=== PATIENT | female | born 1985 | race Caucasian/White ===

== ENCOUNTER 2017-10-29 21:44 | Emergency (ER) | payer OTHER, MEDICAID, SELFPAY ==
[2017-10-29 21:52] VITALS: BP 128/91; PULSE 116; RESP 20; TEMP 37; O2SAT 100; BMI 31.4
--- NOTE | 2017-10-29 21:57 | PC.NURSE ---
PT REFUSING TO LIST MEDICATION ALLERGIES AT THIS TIME.
[2017-10-29 23:11] VITALS: BP 100/73; PULSE 103; RESP 17; O2SAT 99
--- NOTE | 2017-10-29 23:30 | ED.ABDPAIN ---
HPI - Abdominal Pain General Chief Complaint: Abdominal Pain Stated Complaint: states cant keep anything down Time Seen by Provider: 10/29/17 22:55 Source: patient Mode of arrival: ambulatory Limitations: no limitations History of Present Illness HPI narrative: Patient presents to the emergency department today with a chief complaint of nausea, vomiting and diarrhea since noon. She now has some generalized abdominal cramping and denies provocation or palliation of the symptoms. She has become a bit lightheaded and weak feeling. She states her last period was 2 weeks ago. She denies recent antibiotics, travel or exposure to bad food. She denies exposure to ill persons MD complaint: abdominal pain Onset (ago): hour(s) Pain Consistency: constant Location: L flank Severity: moderate Quality: cramping and aching Radiation: none Migration to: no migration Relieving factors: nothing Exacerbating factors: nothing Associated symptoms: nausea, vomiting and diarrhea Related Data Date of Last Menstrual Period: 10/18/17 Home Medications Medication Instructions Recorded Confirmed medroxyprogesterone 150 mg IM [id number] #0 02/17/17 [MagDelay] #0 08/23/17 Previous Rx's Medication Instructions Recorded omeprazole 20 mg PO BID #60 cap 11/25/16 epinephrine [EpiPen 2-Mark] 0.3 mg INJ SEE INSTRUCTIONS PRN #2 02/03/17 kit diclofenac sodium [Voltaren] 1 alex TOPICAL QDAY #100 gm 06/05/17 lamotrigine 300 mg PO HS #60 tab 06/20/17 levothyroxine 0.1 mg PO QAM #90 tab 06/20/17 levothyroxine 88 mcg PO QDAY #90 tab 06/20/17 naproxen 500 mg PO BID #60 tab 06/20/17 sertraline [Zoloft] 100 mg PO HS #90 tab 06/20/17 ondansetron [Zofran ODT] 4 mg SUBLINGUAL Q6HP PRN #30 odt 07/25/17 potassium chloride 20 meq PO Q DAY #150 ml 07/25/17 albuterol sulfate [Ventolin HFA] 2 puff INH Q2H PRN #1 ea 07/31/17 baclofen 5 mg PO BID #30 tab 08/17/17 clonazepam 1 mg PO BID AND HS #120 tab 08/17/17 dextroamphetamine-amphetamine 15 mg PO QDAY #30 cer 08/17/17 [Adderall XR] dextroamphetamine-amphetamine 15 mg PO QDAY #30 tab 08/17/17 [Adderall] ranitidine HCl 150 mg PO BID #60 tab 08/18/17 mupirocin 0 alex TOPICAL TID #22 gm 08/26/17 carisoprodol 350 mg PO TIDP PRN #90 tab 09/05/17 acyclovir 400 mg PO BID #60 tab 09/18/17 ondansetron [Zofran ODT] 4 mg PO Q6H #14 tab 10/30/17 Allergies Allergy/AdvReac Type Severity Reaction Status Date / Time acetaminophen [ACETAMINOPHEN] Allergy Intermediate RASH WITH Unverified 09/06/17 12:12 LARGE AMOUNTS doxycycline [DOXYCYCLINE] Allergy Intermediate VOMITING Unverified 09/06/17 12:12 adhesive tape [ADHESIVE TAPE] Allergy Unknown Unverified 09/06/17 12:12 bee venom protein (honey bee) Allergy Unknown Unverified 09/06/17 12:12 [BEE VENOM PROTEIN (HONEY BEE)] Milk Containing Products Allergy Unknown Unverified 09/06/17 12:12 [MILK CONTAINING PRODUCTS] Review of Systems Review of Systems All systems reviewed & are unremarkable except as noted in HPI and below Constitutional Denies chills, Reports fatigue, Denies fever(s), Denies lethargy, Reports malaise and Denies weakness Eyes Denies change in vision, Denies eye discharge, Denies irritation and Denies loss of vision ENT Ears, Nose, Mouth, and Throat: Denies change in voice, Denies neck pain and Denies sore throat Cardiovascular Denies chest pain, Denies irregular heart rhythm, Denies lightheadedness, Denies palpitations, Denies dyspnea, Denies dyspnea on exertion and Denies orthopnea Respiratory Denies cough, Denies dyspnea, Denies dyspnea on exertion and Denies wheezing Gastrointestinal Gastrointestinal: Reports abdominal pain, Denies change in bowel habits, Reports diarrhea, Reports nausea and Reports vomiting Genitourinary Denies hematuria, Denies flank pain, Denies urinary incontinence and Denies urinary urgency Musculoskeletal Denies neck pain Integumentary/Breasts Denies pruritus, Denies erythema, Denies rash and Denies wounds Neurologic Denies confusion, Denies loss of vision and Denies weakness Psychiatric Denies anxiety, Denies confusion, Denies depression, Denies homicidal ideation and Denies suicidal ideation Endocrine Reports fatigue and Denies palpitations Hematologic/Lymphatic Denies easy bruising Allergic/Immunologic Denies wheezing PFSH Surgical History History of thyroidectomy History of tonsillectomy Status post laparoscopy Family History Grandfather Cancer Diabetes mellitus Heart disease Hypertension High cholesterol Grandmother Cancer Diabetes mellitus Hypertension High cholesterol Mental health problem Mother Age: 55 Diabetes mellitus Grandmother Cancer Social History Smoking Status: Former smoker Exam Initial Vital Signs Initial Vital Signs: Vital Signs Temperature 98.6 F 10/29/17 21:52 Pulse Rate 116 H 10/29/17 21:52 Respiratory Rate 20 10/29/17 21:52 Blood Pressure 128/91 H 10/29/17 21:52 Pulse Oximetry 100 10/29/17 21:52 Const General: cooperative and well developed Nutritional Appearance: well nourished Orientation: alert, awake, oriented x3 and not confused HENMT Head: normocephalic and atraumatic Ears: external ears normal and TM's normal bilaterally Nose: external nose normal and No nasal discharge Face and sinus: sinuses nontender, face symmetric, no sinus tenderness and No dry mucous membranes Mouth: oral mucosae normal and moist mucous membranes Teeth and gingiva: dentition normal Throat: tonsils normal and uvula midline Chest Chest: normal inspection of the chest Cardio Rate: regular rate Rhythm: regular rhythm Heart Sounds: no click, no gallops, no murmurs and no rubs Pulses: normal peripheral pulses GI Inspection: non-distended Palpation: soft, no hepatosplenomegaly, No guarding, No pulsatile mass and tender Auscultation: normal bowel sounds Back/Spine/Pelvis Back: No CVA tenderness Cervical Spine: cervical ROM normal and No pain with cervical ROM Thoracic/Lumbar Spine: thoracic and lumbar spine normal to inspection Skin General: no rashes or lesions noted, No jaundice and No petechiae Extrem General: full ROM, no clubbing, cyanosis or edema, no pedal edema and no calf tenderness Course Orders Ordered: ED Orders 10/29/17 23:35 Complete Blood Count AUTO DIFF Stat Comprehensive Metabolic Panel Stat Discontinued Medications Sodium Chloride (Normal Saline 0.9%) 1,000 mls @ 1,000 mls/hr IV BOLUS ONE Stop: 10/30/17 00:22 Last Infusion: 10/30/17 01:25 Dose: 0 mls/hr Admin: 10/29/17 23:48 Dose: 1,000 mls/hr Ondansetron HCl (Zofran) 4 mg IV NOW ONE Stop: 10/29/17 23:24 Last Admin: 10/29/17 23:48 Dose: 4 mg Ondansetron HCl (Zofran Odt Prepack) 1 bottle MISC SEEINSTR ONE Stop: 10/30/17 01:23 Last Admin: 10/30/17 01:25 Dose: 1 bottle Vital Signs - 8 hr 10/29/17 21:52 10/29/17 23:11 10/30/17 01:37 Temperature 98.6 F 98.3 F Pulse Rate 116 H 103 H 96 H Respiratory Rate 20 17 16 Blood Pressure 128/91 H 109/77 Blood Pressure [Left Arm] 100/73 Pulse Oximetry 100 99 99 MDM - Abdominal Pain Lab Data Result diagrams: 10/29/17 23:35 10/29/17 23:35 Lab Results 10/29/17 10/29/17 Range/Units 23:35 23:35 WBC 12.9 H (4.5-11.0) X10^3/uL RBC 4.85 (4.0-5.2) X10^6/uL Hgb 14.3 (12.0-16.0) g/dL Hct 42.1 (36-46) % MCV 86.8 (80-100) fL MCH 29.5 (26-34) PG MCHC 34.1 (30-36) % RDW 13.8 (11.6-14.8) % Plt Count 237 (150-400) X10^3/uL Neut % (Auto) 94.2 H (50-75) % Lymph % (Auto) 3.0 L (25-40) % Dickenson % (Auto) 2.4 L (3-14) % Eos % (Auto) 0.3 L (2-4) % Baso % (Auto) 0.1 (0-2) % Neut # (Auto) 32435 H (5198-2428) /uL Sodium 139 (137-145) mmol/L Potassium 3.9 (3.4-5.1) mmol/L Chloride 101 (98-107) mmol/L Carbon Dioxide 25 (22-32) mmol/L BUN 15 (7-17) mg/dL Creatinine 0.60 (0.52-1.04) mg/dL Estimated GFR > 60.0 (>60) mL/min BUN/Creatinine Ratio 25.0 H (6-22) Glucose 108 H (70-100) mg/dL Calcium 8.8 (8.4-10.2) mg/dL Total Bilirubin 0.6 (0.2-1.3) mg/dL AST 27 (14-36) IU/L ALT 38 (9-52) IU/L Alkaline Phosphatase 75 (38-126) U/L Total Protein 7.6 (6.3-8.2) g/dL Albumin 4.3 (3.5-5.0) g/dL Globulin 3.3 (1.7-4.1) g/dL Albumin/Globulin Ratio 1.3 (1.0-2.8) Discharge Plan Departure Patient Disposition: Home, Self-Care Clinical Impression: Vomiting, Abdominal pain, Diarrhea Discharge Date/Time: 10/30/17 01:52 Interventions: ED Discharge Assessment Last Done: 10/30/17 01:37 Instructions: DI for Viral Gastroenteritis -- Adult Activity Restrictions/Additional Instructions: 1. Drink plenty of fluids with frequent small sips. 2. For the next 24 hours a clear liquid diet is advised. After that please employ a brat diet which would include bananas, rice, apples, toast. 3. Please take medications as directed. 4. Please follow-up with your doctor in the next 1-2 days. Call the office for an appointment. 5. Please return to the emergency Department for any worsening or persistent symptoms, such as increasing pain or fever. Prescriptions: New ondansetron [Zofran ODT] 4 mg tablet,disintegrating 4 mg PO Q6H Qty: 14 RF: 0 No Action omeprazole 20 MG capsule,delayed release(DR/EC) 20 mg PO BID Qty: 60 RF: 11 epinephrine [EpiPen 2-Mark] 0.3 MG/0.3 ML auto-injector 0.3 mg INJ SEE INSTRUCTIONS PRNQty: 2 RF: 0 medroxyprogesterone 150 MG/1 ML suspension 150 mg IM [id number] Qty: 0 RF: 0 diclofenac sodium [Voltaren] 1 % gel 1 alex Topical QDAY Qty: 100 RF: 3 lamotrigine 150 MG tablet 300 mg PO HS Qty: 60 RF: 6 sertraline [Zoloft] 100 MG tablet 100 mg PO HS Qty: 90 RF: 1 levothyroxine 100 MCG tablet 0.1 mg PO QAM Qty: 90 RF: 3 levothyroxine 88 MCG tablet 88 mcg PO QDAY Qty: 90 RF: 3 naproxen 500 MG tablet 500 mg PO BID Qty: 60 RF: 1 potassium chloride 20 MEQ/15 ML liquid 20 meq PO Q DAY Qty: 150 RF: 3 ondansetron [Zofran ODT] 4 MG tablet,disintegrating 4 mg Sublingual Q6HP PRNQty: 30 RF: 2 albuterol sulfate [Ventolin HFA] 90 MCG/PUFF HFA aerosol inhaler 2 puff INH Q2H PRNQty: 1 RF: 0 baclofen 10 MG tablet 5 mg PO BID Qty: 30 RF: 0 clonazepam 1 MG tablet 1 mg PO BID AND HS Qty: 120 RF: 3 dextroamphetamine-amphetamine [Adderall] 15 MG tablet 15 mg PO QDAY Qty: 30 RF: 0 dextroamphetamine-amphetamine [Adderall XR] 15 MG capsule,extended release 24hr 15 mg PO QDAY Qty: 30 RF: 0 ranitidine HCl 150 MG tablet 150 mg PO BID Qty: 60 RF: 11 [MagDelay] Qty: 0 RF: 0 mupirocin 2 % ointment Topical TID Qty: 22 RF: 0 carisoprodol 350 MG tablet 350 mg PO TIDP PRNQty: 90 RF: 0 acyclovir 400 MG tablet 400 mg PO BID Qty: 60 RF: 11
[2017-10-29 23:43] LABS: Add Manual Diff / Slide Review NO; Basophils Percent Auto 0.1 % (0-2); Eosinophils Percent Auto 0.3 % (2-4); Hematocrit 42.1 % (36-46); Hemoglobin 14.3 g/dL (12.0-16.0); Mean Corpuscular HGB Conc 34.1 % (30-36); Mean Corpuscular Hemoglobin 29.5 PG (26-34); Mean Corpuscular Volume 86.8 fL (80-100); Monocytes Percent Auto 2.4 % (3-14); Neutrophils Absolute Auto 12200 /uL (3000-5900); Neutrophils Percent Auto 94.2 % (50-75); Platelet Count 237 X10^3/uL (150-400); Red Blood Cell Count 4.85 X10^6/uL (4.0-5.2); Red Cell Distribution Width 13.8 % (11.6-14.8); White Blood Cell Count 12.9 X10^3/uL (4.5-11.0)
[2017-10-29] MEDS: SODIUM CHLORIDE 0.9% 1,000 ML 1000 ML IV (23:48)
[2017-10-29] MEDS: ONDANSETRON 4 MG/2 ML INJ IV (23:48)
[2017-10-29 23:56] LABS: Alanine Aminotransferase 38 IU/L (9-52); Albumin 4.3 g/dL (3.5-5.0); Albumin Globulin Ratio 1.3 (1.0-2.8); Alkaline Phosphatase 75 U/L (38-126); Aspartate Aminotransferase 27 IU/L (14-36); Bilirubin Total 0.6 mg/dL (0.2-1.3); Blood Urea Nitrogen 15 mg/dL (7-17); Calcium 8.8 mg/dL (8.4-10.2); Carbon Dioxide 25 mmol/L (22-32); Chloride 101 mmol/L (98-107); Estimated Glomerular Filt Rate > 60.0 mL/min (>60); Globulin 3.3 g/dL (1.7-4.1); Glucose 108 mg/dL (70-100); HEMOLYSIS < 15 (0-50); Potassium 3.9 mmol/L (3.4-5.1); Sodium 139 mmol/L (137-145); Total Protein 7.6 g/dL (6.3-8.2)
[2017-10-30] MEDS: ONDANSETRON 4 MG ODT PREPACK 1 BOTTLE MISC (01:25)
[2017-10-30 01:37] VITALS: BP 109/77; PULSE 96; RESP 16; TEMP 36.8; O2SAT 99
== END 2017-10-30 01:52 | disposition home or self-care (01) ==
PROVIDERS: Emergency Provider Emergency Medicine; Family Provider Family Medicine; PCP Family Medicine
DX: R11.10 Vomiting, unspecified (principal); R10.9 Unspecified abdominal pain; R19.7 Diarrhea, unspecified
CPT/HCPCS: 36591; 80053; 81003; 81025; 85025; 96361; 96374; 99283; 99284; J2405

== ENCOUNTER 2017-11-19 04:29 | Emergency (ER) | payer OTHER, MEDICAID, SELFPAY ==
[2017-11-19 04:48] VITALS: BP 143/101; PULSE 107; RESP 18; TEMP 36.3; O2SAT 98; BMI 31.4
--- NOTE | 2017-11-19 05:10 | ED_ITS ---
HPI - Extremity Problem General Chief complaint: Extremity Problem,Nontraumatic Stated complaint: muscle pain Time Seen by Provider: 11/19/17 04:51 Source: patient and old records reviewed Mode of arrival: ambulatory Limitations: no limitations History of Present Illness HPI Narrative: Patient is a 32-year-old female presenting with muscle spasms. She has had muscle spasms multiple times and multiple ED visits for the same. She says tonight there are not any different but they are very bothersome. She feels like the muscle spasm contorted her body into weird positions. She has been given Soma in the past but her primary care physician will no longer write her for Soma. On previous ED visit she has had Toradol Valium Haldol and Ativan. She says nothing helps. She was here October 29 for vomiting. She had blood work done at that time which was all within normal limits. Previously when she has had muscle spasms her potassium was slightly low at 3.4 which is on the low end of normal. Related Data Home Medications Medication Instructions Recorded Confirmed medroxyprogesterone 150 mg IM [id number] #0 02/17/17 [MagDelay] #0 08/23/17 Previous Rx's Medication Instructions Recorded omeprazole 20 mg PO BID #60 cap 11/25/16 epinephrine [EpiPen 2-Mark] 0.3 mg INJ SEE INSTRUCTIONS PRN #2 02/03/17 kit diclofenac sodium [Voltaren] 1 alex TOPICAL QDAY #100 gm 06/05/17 lamotrigine 300 mg PO HS #60 tab 06/20/17 levothyroxine 0.1 mg PO QAM #90 tab 06/20/17 levothyroxine 88 mcg PO QDAY #90 tab 06/20/17 naproxen 500 mg PO BID #60 tab 06/20/17 sertraline [Zoloft] 100 mg PO HS #90 tab 06/20/17 ondansetron [Zofran ODT] 4 mg SUBLINGUAL Q6HP PRN #30 odt 07/25/17 potassium chloride 20 meq PO Q DAY #150 ml 07/25/17 clonazepam 1 mg PO BID AND HS #120 tab 08/17/17 dextroamphetamine-amphetamine 15 mg PO QDAY #30 cer 08/17/17 [Adderall XR] dextroamphetamine-amphetamine 15 mg PO QDAY #30 tab 08/17/17 [Adderall] ranitidine HCl 150 mg PO BID #60 tab 08/18/17 mupirocin 0 alex TOPICAL TID #22 gm 08/26/17 carisoprodol 350 mg PO TIDP PRN #90 tab 09/05/17 acyclovir 400 mg PO BID #60 tab 09/18/17 ondansetron [Zofran ODT] 4 mg PO Q6H #14 tab 10/30/17 albuterol sulfate 90 mcg/actuation 2 puff INHALATION Q4H PRN #1 each 11/02/17 breath activated powder inhaler fluconazole 150 mg tablet 150 mg PO ONCE #1 tab 11/02/17 Allergies Allergy/AdvReac Type Severity Reaction Status Date / Time acetaminophen [ACETAMINOPHEN] Allergy Intermediate RASH WITH Verified 11/02/17 11:44 LARGE AMOUNTS doxycycline [DOXYCYCLINE] Allergy Intermediate VOMITING Verified 11/02/17 11:44 adhesive tape [ADHESIVE TAPE] Allergy Unknown Verified 11/02/17 11:44 bee venom protein (honey bee) Allergy Unknown Verified 11/02/17 11:44 [BEE VENOM PROTEIN (HONEY BEE)] Milk Containing Products Allergy Unknown Verified 11/02/17 11:44 [MILK CONTAINING PRODUCTS] Review of Systems Review of Systems All systems reviewed & are unremarkable except as noted in HPI and below Constitutional Denies chills, Denies fever(s), Denies lethargy and Denies weakness Cardiovascular Denies chest pain, Denies irregular heart rhythm, Denies lightheadedness, Denies palpitations, Denies dyspnea, Denies dyspnea on exertion and Denies orthopnea Respiratory Denies cough, Denies dyspnea, Denies dyspnea on exertion and Denies wheezing Gastrointestinal Gastrointestinal: Denies abdominal pain, Denies change in bowel habits, Denies diarrhea, Denies nausea and Denies vomiting Musculoskeletal Reports system reviewed and no additional complaints, except as docu and Reports as per HPI Integumentary/Breasts Denies pruritus, Denies erythema, Denies rash and Denies wounds Neurologic Denies weakness Endocrine Denies palpitations Allergic/Immunologic Denies wheezing PFSH Medical History Bipolar 1 disorder (Acute) GERD (gastroesophageal reflux disease) (Acute) PTSD (post-traumatic stress disorder) (Acute) Rheumatoid arthritis (Acute) Thyroid cancer (Acute) Surgical History History of thyroidectomy History of tonsillectomy Status post laparoscopy Family History Grandfather Cancer Diabetes mellitus Heart disease Hypertension High cholesterol Grandmother Cancer Diabetes mellitus Hypertension High cholesterol Mental health problem Mother Age: 55 Diabetes mellitus Grandmother Cancer Social History Smoking Status: Former smoker Exam Initial Vital Signs Initial Vital Signs: Vital Signs Temperature 97.3 F L 11/19/17 04:48 Pulse Rate 107 H 11/19/17 04:48 Respiratory Rate 18 11/19/17 04:48 Blood Pressure 143/101 H 11/19/17 04:48 Pulse Oximetry 98 11/19/17 04:48 GENERAL: Well-appearing, well-nourished and in no acute distress. Combing her hair HEENT: Head atraumatic,EOMI, pupils reactive CARDIOVASCULAR: No cyanosis peripheral pulses intact RESPIRATORY: He is in full sentences no respiratory distress EXTREMITIES: Normal range of motion, no clubbing or edema. Neurovascularly intact. No obvious spasms or muscle twitching NEUROLOGICAL: Alert and oriented x4.Normal gait and speech. SKIN: Warm, dry, no laceration, no petechiae, no rashes or lesions. Course Vital Signs - 8 hr 11/19/17 04:48 Temperature 97.3 F L Pulse Rate 107 H Respiratory Rate 18 Blood Pressure 143/101 H Pulse Oximetry 98 MDM - Extremity (Nontraumatic) MDM Narrative Medical decision making narrative: Patient was seen at least 3 times in July for muscle twitching. She was given a variety of medications none of which she claims today helped. I have informed her that she will not be getting Soma in the ED. She is offered Toradol. She does not want Toradol and would rather just go home. He is in no obvious distress, combing her hair. She had normal blood work on just a couple of weeks ago. The patient is clinically sober, free from distracting injury, appears to have intact insight, judgment and reason. Does not meet criteria for involuntary hospitalization. Patient has the capacity to make decisions. Discharge Plan Departure Patient Disposition: Home, Self-Care Clinical Impression: Muscle spasm Instructions: DI for Muscle Spasm Activity Restrictions/Additional Instructions: *You have been diagnosed with muscle spasm *Continue to take medications as directed *Follow up with your primary care provider in 2-3 days *Return to ER if you should have any new, worsening or concerning symptoms Prescriptions: No Action fluconazole 150 mg tablet 150 mg PO ONCE Qty: 1 RF: 0 albuterol sulfate 90 mcg/actuation aerosol powdr breath activated 2 puff INHALATION Q4H PRN (Reason: shortness of breath or wheezing) Qty: 1 RF : 0 omeprazole 20 MG capsule,delayed release(DR/EC) 20 mg PO BID Qty: 60 RF: 11 epinephrine [EpiPen 2-Mark] 0.3 MG/0.3 ML auto-injector 0.3 mg INJ SEE INSTRUCTIONS PRNQty: 2 RF: 0 medroxyprogesterone 150 MG/1 ML suspension 150 mg IM [id number] Qty: 0 RF: 0 diclofenac sodium [Voltaren] 1 % gel 1 alex Topical QDAY Qty: 100 RF: 3 lamotrigine 150 MG tablet 300 mg PO HS Qty: 60 RF: 6 sertraline [Zoloft] 100 MG tablet 100 mg PO HS Qty: 90 RF: 1 levothyroxine 100 MCG tablet 0.1 mg PO QAM Qty: 90 RF: 3 levothyroxine 88 MCG tablet 88 mcg PO QDAY Qty: 90 RF: 3 naproxen 500 MG tablet 500 mg PO BID Qty: 60 RF: 1 potassium chloride 20 MEQ/15 ML liquid 20 meq PO Q DAY Qty: 150 RF: 3 ondansetron [Zofran ODT] 4 MG tablet,disintegrating 4 mg Sublingual Q6HP PRNQty: 30 RF: 2 clonazepam 1 MG tablet 1 mg PO BID AND HS Qty: 120 RF: 3 dextroamphetamine-amphetamine [Adderall] 15 MG tablet 15 mg PO QDAY Qty: 30 RF: 0 dextroamphetamine-amphetamine [Adderall XR] 15 MG capsule,extended release 24hr 15 mg PO QDAY Qty: 30 RF: 0 ranitidine HCl 150 MG tablet 150 mg PO BID Qty: 60 RF: 11 [MagDelay] Qty: 0 RF: 0 mupirocin 2 % ointment Topical TID Qty: 22 RF: 0 carisoprodol 350 MG tablet 350 mg PO TIDP PRNQty: 90 RF: 0 acyclovir 400 MG tablet 400 mg PO BID Qty: 60 RF: 11 ondansetron [Zofran ODT] 4 mg tablet,disintegrating 4 mg PO Q6H Qty: 14 RF: 0
== END 2017-11-19 05:26 | disposition home or self-care (01) ==
PROVIDERS: Emergency Provider Emergency Medicine; Family Provider Family Medicine; PCP Family Medicine
DX: M62.838 Other muscle spasm (principal)
CPT/HCPCS: 99282

== ENCOUNTER 2018-01-11 01:26 | Emergency (ER) | payer OTHER, MEDICAID, SELFPAY ==
--- NOTE | 2018-01-11 01:35 | ED.GENADULT ---
HPI - General Adult General Chief complaint: Back Pain/Injury Stated complaint: pain rt side Time Seen by Provider: 01/11/18 01:27 Source: patient Mode of arrival: ambulatory Limitations: no limitations History of Present Illness HPI narrative: Patient is a 32-year-old female here for evaluation of complaints that her muscles are ?slipping and sliding ?. She has been seen here in the emergency department in the past for back spasms. She states this is different than her normal back spasms. She states that she feels like her muscles are moving. She states this has been going on since May. States she does not have a primary care doctor right now because Dr. perez left. She states she has felt like this ever since her muscles ?gave out? back in May. Has not tried anything for it prior to arrival. Related Data Home Medications Medication Instructions Recorded Confirmed medroxyprogesterone 150 mg IM [id number] #0 02/17/17 12/25/17 [MagDelay] #0 08/23/17 12/25/17 amitriptyline 10 mg tablet 10 mg PO DAILY 12/25/17 12/25/17 verapamil ER 120 mg 24 hr 120 mg PO DAILY 12/25/17 12/25/17 capsule,extended release Previous Rx's Medication Instructions Recorded omeprazole 20 mg PO BID #60 cap 11/25/16 epinephrine [EpiPen 2-Mark] 0.3 mg INJ SEE INSTRUCTIONS PRN #2 02/03/17 kit diclofenac sodium [Voltaren] 1 alex TOPICAL QDAY #100 gm 06/05/17 lamotrigine 300 mg PO HS #60 tab 06/20/17 levothyroxine 0.1 mg PO QAM #90 tab 06/20/17 levothyroxine 88 mcg PO QDAY #90 tab 06/20/17 naproxen 500 mg PO BID #60 tab 06/20/17 sertraline [Zoloft] 100 mg PO HS #90 tab 06/20/17 ondansetron [Zofran ODT] 4 mg SUBLINGUAL Q6HP PRN #30 odt 07/25/17 potassium chloride 20 meq PO Q DAY #150 ml 07/25/17 clonazepam 1 mg PO BID AND HS #120 tab 08/17/17 dextroamphetamine-amphetamine 15 mg PO QDAY #30 cer 08/17/17 [Adderall XR] dextroamphetamine-amphetamine 15 mg PO QDAY #30 tab 08/17/17 [Adderall] ranitidine HCl 150 mg PO BID #60 tab 08/18/17 mupirocin 0 alex TOPICAL TID #22 gm 08/26/17 carisoprodol 350 mg PO TIDP PRN #90 tab 09/05/17 acyclovir 400 mg PO BID #60 tab 09/18/17 ondansetron [Zofran ODT] 4 mg PO Q6H #14 tab 10/30/17 albuterol sulfate 90 mcg/actuation 2 puff INHALATION Q4H PRN #1 each 11/02/17 breath activated powder inhaler fluconazole 150 mg tablet 150 mg PO ONCE #1 tab 11/02/17 methocarbamol 750 mg PO QID PRN #30 tab 01/11/18 Allergies Allergy/AdvReac Type Severity Reaction Status Date / Time acetaminophen [ACETAMINOPHEN] Allergy Intermediate RASH WITH Verified 12/25/17 17:45 LARGE AMOUNTS doxycycline [DOXYCYCLINE] Allergy Intermediate VOMITING Verified 12/25/17 17:45 adhesive tape [ADHESIVE TAPE] Allergy Unknown Verified 12/25/17 17:45 bee venom protein (honey bee) Allergy Unknown Verified 12/25/17 17:45 [BEE VENOM PROTEIN (HONEY BEE)] Milk Containing Products Allergy Unknown Verified 12/25/17 17:45 [MILK CONTAINING PRODUCTS] Review of Systems Constitutional Denies fever(s) ENT Ears, Nose, Mouth, and Throat: Denies vertigo and Denies dizziness Cardiovascular Reports chest pain and Denies dyspnea Respiratory Denies dyspnea Gastrointestinal Gastrointestinal: Denies abdominal pain and Denies nausea Musculoskeletal Comments: Muscles ?slipping and sliding ? Integumentary/Breasts Denies lesions and Denies rash Neurologic Denies confusion, Denies vertigo and Denies dizziness Psychiatric Denies confusion Hematologic/Lymphatic Denies easy bleeding and Denies easy bruising [facility] Medical History Bipolar 1 disorder (Acute) GERD (gastroesophageal reflux disease) (Acute) PTSD (post-traumatic stress disorder) (Acute) Rheumatoid arthritis (Acute) Thyroid cancer (Acute) Surgical History History of thyroidectomy History of tonsillectomy Status post laparoscopy Family History Grandfather Cancer Diabetes mellitus Heart disease Hypertension High cholesterol Grandmother Cancer Diabetes mellitus Hypertension High cholesterol Mental health problem Mother Age: 55 Diabetes mellitus Grandmother Cancer Social History Smoking Status: Former smoker alcohol intake: never Exam Initial Vital Signs Initial Vital Signs: Vital Signs Temperature 98.2 F 01/11/18 01:54 Pulse Rate 114 H 01/11/18 01:54 Respiratory Rate 18 01/11/18 01:54 Blood Pressure 141/103 H 01/11/18 01:54 Pulse Oximetry 98 01/11/18 01:54 Const General: healthy appearing, well developed, well groomed and anxious Orientation: alert, awake and oriented x3 HENMT Head: normal to inspection and normocephalic Chest Chest: normal inspection of the chest Resp Effort & Inspection: normal respiratory effort Auscultation: clear to auscultation bilaterally Cardio Rate: tachycardic Rhythm: regular rhythm Pulses: radial pulses present GI Inspection: non-distended Back/Spine/Pelvis Back: back tenderness (Over her entire spine) Cervical Spine: No step off deformity Skin Rashes: no rashes Other: Multiple bruises lower extremities Neuro General: alert, awake and oriented x3 Speech: speech normal Gait: normal gait Motor: muscle tone normal throughout Extrem Other: No gross deformities Psych Appearance: grossly normal and well kempt Course Orders Ordered: ED Orders 01/11/18 01:48 Basic Metabolic Panel Stat Complete Blood Count AUTO DIFF Stat Magnesium Stat Phosphorous Stat Vital Signs - 8 hr 01/11/18 01:54 Temperature 98.2 F Pulse Rate 114 H Respiratory Rate 18 Blood Pressure 141/103 H Pulse Oximetry 98 Medical Decision Making [facility] Narrative Medical decision making narrative: Patient with vague symptoms. Electrolytes unremarkable. Patient's physical exam nonfocal. She has multiple complaints about her ?muscles slipping?. She points to her back that her legs and then her feet. Doubt CVA. Will hold on radiologic studies for now. No emergent condition was found today. She was given Toradol here in the emergency department. Will send home with a prescription for Robaxin. She was instructed that she does need to follow up with her primary care doctor or make contact with the primary care doctor. Patient states that she can take Robaxin. Lab Data Lab results reviewed: Yes I reviewed the patient's lab results. Result diagrams: 01/11/18 01:48 01/11/18 01:48 Lab Results 01/11/18 01/11/18 Range/Units 01:48 01:48 WBC 10.3 (4.5-11.0) X10^3/uL RBC 4.58 (4.0-5.2) X10^6/uL Hgb 13.5 (12.0-16.0) g/dL Hct 39.7 (36-46) % MCV 86.7 (80-100) fL MCH 29.5 (26-34) PG MCHC 34.0 (30-36) % RDW 13.3 (11.6-14.8) % Plt Count 294 (150-400) X10^3/uL Neut % (Auto) 68.8 (50-75) % Lymph % (Auto) 22.1 L (25-40) % Craig % (Auto) 6.1 (3-14) % Eos % (Auto) 2.3 (2-4) % Baso % (Auto) 0.7 (0-2) % Neut # (Auto) 7100 H (8333-1208) /uL Sodium 141 (137-145) mmol/L Potassium 3.7 (3.4-5.1) mmol/L Chloride 102 (98-107) mmol/L Carbon Dioxide 29 (22-32) mmol/L BUN 13 (7-17) mg/dL Creatinine 0.90 (0.52-1.04) mg/dL Estimated GFR > 60.0 (>60) mL/min BUN/Creatinine Ratio 14.4 (6-22) Glucose 105 H (70-100) mg/dL Calcium 9.0 (8.4-10.2) mg/dL Phosphorus 3.3 (2.5-4.5) mg/dL Magnesium 2.1 (1.6-2.3) mg/dL Discharge Plan Departure Patient Disposition: Home, Self-Care Clinical Impression: Myalgia Instructions: DI for Back Spasm Activity Restrictions/Additional Instructions: You do need to make contact with the primary care doctor in the area. You can call Dr. perez office back to reestablish care with them. If you do not want to reestablish care with that provider or that office recommend that you contact another primary care doctor in the area. No emergent condition was found today. Your electrolytes were unremarkable. Return to the emergency department for any new symptoms. Prescriptions: New methocarbamol 750 mg tablet 750 mg PO QID PRN (Reason: muscle spasm) Qty: 30 RF: 0 No Action fluconazole 150 mg tablet 150 mg PO ONCE Qty: 1 RF: 0 albuterol sulfate 90 mcg/actuation aerosol powdr breath activated 2 puff INHALATION Q4H PRN (Reason: shortness of breath or wheezing) Qty: 1 RF: 0 amitriptyline 10 mg tablet 10 mg PO DAILY RF: 0 verapamil 120 mg capsule,ext rel. pellets 24 hr 120 mg PO DAILY RF: 0 omeprazole 20 MG capsule,delayed release(DR/EC) 20 mg PO BID Qty: 60 RF: 11 epinephrine [EpiPen 2-Mark] 0.3 MG/0.3 ML auto-injector 0.3 mg INJ SEE INSTRUCTIONS PRNQty: 2 RF: 0 medroxyprogesterone 150 MG/1 ML suspension 150 mg IM [id number] Qty: 0 RF: 0 diclofenac sodium [Voltaren] 1 % gel 1 alex Topical QDAY Qty: 100 RF: 3 lamotrigine 150 MG tablet 300 mg PO HS Qty: 60 RF: 6 sertraline [Zoloft] 100 MG tablet 100 mg PO HS Qty: 90 RF: 1 levothyroxine 100 MCG tablet 0.1 mg PO QAM Qty: 90 RF: 3 levothyroxine 88 MCG tablet 88 mcg PO QDAY Qty: 90 RF: 3 naproxen 500 MG tablet 500 mg PO BID Qty: 60 RF: 1 potassium chloride 20 MEQ/15 ML liquid 20 meq PO Q DAY Qty: 150 RF: 3 ondansetron [Zofran ODT] 4 MG tablet,disintegrating 4 mg Sublingual Q6HP PRNQty: 30 RF: 2 clonazepam 1 MG tablet 1 mg PO BID AND HS Qty: 120 RF: 3 dextroamphetamine-amphetamine [Adderall] 15 MG tablet 15 mg PO QDAY Qty: 30 RF: 0 dextroamphetamine-amphetamine [Adderall XR] 15 MG capsule,extended release 24hr 15 mg PO QDAY Qty: 30 RF: 0 ranitidine HCl 150 MG tablet 150 mg PO BID Qty: 60 RF: 11 [MagDelay] Qty: 0 RF: 0 mupirocin 2 % ointment Topical TID Qty: 22 RF: 0 carisoprodol 350 MG tablet 350 mg PO TIDP PRNQty: 90 RF: 0 acyclovir 400 MG tablet 400 mg PO BID Qty: 60 RF: 11 ondansetron [Zofran ODT] 4 mg tablet,disintegrating 4 mg PO Q6H Qty: 14 RF: 0
[2018-01-11 01:54] VITALS: BP 141/103; PULSE 114; RESP 18; TEMP 36.8; O2SAT 98
[2018-01-11 02:03] LABS: Add Manual Diff / Slide Review NO; Basophils Percent Auto 0.7 % (0-2); Eosinophils Percent Auto 2.3 % (2-4); Hematocrit 39.7 % (36-46); Hemoglobin 13.5 g/dL (12.0-16.0); Lymphocytes Percent Auto 22.1 % (25-40); Mean Corpuscular Hemoglobin 29.5 PG (26-34); Mean Corpuscular Volume 86.7 fL (80-100); Monocytes Percent Auto 6.1 % (3-14); Neutrophils Absolute Auto 7100 /uL (3000-5900); Neutrophils Percent Auto 68.8 % (50-75); Platelet Count 294 X10^3/uL (150-400); Red Blood Cell Count 4.58 X10^6/uL (4.0-5.2); Red Cell Distribution Width 13.3 % (11.6-14.8); White Blood Cell Count 10.3 X10^3/uL (4.5-11.0)
[2018-01-11 02:10] LABS: BUN Creatinine Ratio 14.4 (6-22); Blood Urea Nitrogen 13 mg/dL (7-17); Carbon Dioxide 29 mmol/L (22-32); Chloride 102 mmol/L (98-107); Estimated Glomerular Filt Rate > 60.0 mL/min (>60); Glucose 105 mg/dL (70-100); HEMOLYSIS < 15 (0-50); Magnesium 2.1 mg/dL (1.6-2.3); Phosphorous 3.3 mg/dL (2.5-4.5); Potassium 3.7 mmol/L (3.4-5.1); Sodium 141 mmol/L (137-145)
[2018-01-11] MEDS: KETOROLAC 60 MG/2 ML VIAL 30 MG IM (02:35)
[2018-01-11 03:06] VITALS: BP 140/100; PULSE 97; RESP 18; TEMP 36.8; O2SAT 98
== END 2018-01-11 03:08 | disposition home or self-care (01) ==
PROVIDERS: Emergency Provider Emergency Medicine; Family Provider Family Medicine
DX: M79.1 Myalgia (principal)
CPT/HCPCS: 36415; 80048; 83735; 84100; 85025; 96372; 99282; 99283; J1885

== ENCOUNTER 2018-01-15 03:20 | Emergency (ER) | payer OTHER, MEDICAID, SELFPAY ==
[2018-01-15 03:52] VITALS: BP 154/105; PULSE 84; RESP 18; TEMP 36.9; O2SAT 99; BMI 31.4
--- NOTE | 2018-01-15 04:12 | DI.RAD.S_ITS ---
PROCEDURE: XR ACUTE ABDOMEN SERIES INDICATIONS: Abdominal pain, cramping TECHNIQUE: One view chest and two views of the abdomen were acquired. COMPARISON: [facility], , ABDOMEN 2 VIEW, 12/10/2016, 10:56. [facility], , CHEST 2 VIEW, 07/31/2010, 14:39. [facility], , CHEST 1 VIEW, 04/16/2012, 18:44. FINDINGS: Surgical changes and devices: Surgical clips project over the neck base which are stable compared to prior exams.. Chest: Lungs are clear. Heart size is normal. No pleural effusions. No pneumoperitoneum. Abdomen: Bowel gas pattern is normal. No suspicious calcifications. Visualized solid organ contours appear normal. Bones: No suspicious bony lesions. IMPRESSION: No acute disease process with no definite evidence of bowel obstruction. Dictated by: Tamar Castanon MD, PhD on 01/15/2018 at 8:41 Approved by: Tamar Castanon MD, PhD on 01/15/2018 at 8:42
--- NOTE | 2018-01-15 04:18 | ED_ITS ---
HPI - Abdominal Pain General Chief Complaint: Abdominal Pain Stated Complaint: abdominal pain Time Seen by Provider: 01/15/18 03:29 Source: patient Mode of arrival: ambulatory Limitations: no limitations History of Present Illness HPI narrative: Patient complains of abdominal wall spasms off and on for the past few hours. She states they woke her from sleep. She denies abdominal pain but states this is in her abdominal wall. She denies provocation, palliation or radiation. She has had no nausea, vomiting or diarrhea. She denies fever or chills. She is not dizzy nor weak or lightheaded. She denies any fever chills or other. When the spasms come they changed location with each subsequent recurrence MD complaint: abdominal pain Onset (ago): hour(s) Pain Consistency: now resolved Location: diffuse Severity: mild Radiation: none Migration to: no migration Relieving factors: nothing Exacerbating factors: nothing Associated symptoms: denies other symptoms Related Data Home Medications Medication Instructions Recorded Confirmed medroxyprogesterone 150 mg IM [id number] #0 02/17/17 12/25/17 [MagDelay] #0 08/23/17 12/25/17 amitriptyline 10 mg tablet 10 mg PO DAILY 12/25/17 12/25/17 verapamil ER 120 mg 24 hr 120 mg PO DAILY 12/25/17 12/25/17 capsule,extended release Previous Rx's Medication Instructions Recorded omeprazole 20 mg PO BID #60 cap 11/25/16 epinephrine [EpiPen 2-Mark] 0.3 mg INJ SEE INSTRUCTIONS PRN #2 02/03/17 kit diclofenac sodium [Voltaren] 1 alex TOPICAL QDAY #100 gm 06/05/17 lamotrigine 300 mg PO HS #60 tab 06/20/17 levothyroxine 0.1 mg PO QAM #90 tab 06/20/17 levothyroxine 88 mcg PO QDAY #90 tab 06/20/17 naproxen 500 mg PO BID #60 tab 06/20/17 sertraline [Zoloft] 100 mg PO HS #90 tab 06/20/17 ondansetron [Zofran ODT] 4 mg SUBLINGUAL Q6HP PRN #30 odt 07/25/17 potassium chloride 20 meq PO Q DAY #150 ml 07/25/17 clonazepam 1 mg PO BID AND HS #120 tab 08/17/17 dextroamphetamine-amphetamine 15 mg PO QDAY #30 cer 08/17/17 [Adderall XR] dextroamphetamine-amphetamine 15 mg PO QDAY #30 tab 08/17/17 [Adderall] ranitidine HCl 150 mg PO BID #60 tab 08/18/17 mupirocin 0 alex TOPICAL TID #22 gm 08/26/17 carisoprodol 350 mg PO TIDP PRN #90 tab 09/05/17 acyclovir 400 mg PO BID #60 tab 09/18/17 ondansetron [Zofran ODT] 4 mg PO Q6H #14 tab 10/30/17 albuterol sulfate 90 mcg/actuation 2 puff INHALATION Q4H PRN #1 each 11/02/17 breath activated powder inhaler fluconazole 150 mg tablet 150 mg PO ONCE #1 tab 11/02/17 methocarbamol 750 mg PO QID PRN #30 tab 01/11/18 Allergies Allergy/AdvReac Type Severity Reaction Status Date / Time acetaminophen [ACETAMINOPHEN] Allergy Intermediate RASH WITH Verified 12/25/17 17:45 LARGE AMOUNTS doxycycline [DOXYCYCLINE] Allergy Intermediate VOMITING Verified 12/25/17 17:45 adhesive tape [ADHESIVE TAPE] Allergy Unknown Verified 12/25/17 17:45 bee venom protein (honey bee) Allergy Unknown Verified 12/25/17 17:45 [BEE VENOM PROTEIN (HONEY BEE)] Milk Containing Products Allergy Unknown Verified 12/25/17 17:45 [MILK CONTAINING PRODUCTS] Review of Systems Review of Systems All systems reviewed & are unremarkable except as noted in HPI and below Constitutional Denies chills, Denies fever(s), Denies lethargy and Denies weakness Eyes Denies change in vision, Denies eye discharge, Denies irritation and Denies loss of vision ENT Ears, Nose, Mouth, and Throat: Denies change in voice, Denies neck pain and Denies sore throat Cardiovascular Denies chest pain, Denies irregular heart rhythm, Denies lightheadedness, Denies palpitations, Denies dyspnea, Denies dyspnea on exertion and Denies orthopnea Respiratory Denies cough, Denies dyspnea, Denies dyspnea on exertion and Denies wheezing Gastrointestinal Gastrointestinal: Reports abdominal pain, Denies change in bowel habits, Denies diarrhea, Denies nausea and Denies vomiting Genitourinary Denies hematuria, Denies flank pain, Denies urinary incontinence and Denies urinary urgency Musculoskeletal Denies neck pain Integumentary/Breasts Denies pruritus, Denies erythema, Denies rash and Denies wounds Neurologic Denies confusion, Denies loss of vision and Denies weakness Psychiatric Denies anxiety, Denies confusion, Denies depression, Denies homicidal ideation and Denies suicidal ideation Endocrine Denies palpitations Hematologic/Lymphatic Denies easy bruising Allergic/Immunologic Denies wheezing [facility] Medical History Bipolar 1 disorder (Acute) GERD (gastroesophageal reflux disease) (Acute) PTSD (post-traumatic stress disorder) (Acute) Rheumatoid arthritis (Acute) Thyroid cancer (Acute) Surgical History History of thyroidectomy History of tonsillectomy Status post laparoscopy Family History Grandfather Cancer Diabetes mellitus Heart disease Hypertension High cholesterol Grandmother Cancer Diabetes mellitus Hypertension High cholesterol Mental health problem Mother Age: 55 Diabetes mellitus Grandmother Cancer Social History Smoking Status: Former smoker alcohol intake: never Exam Narrative Exam Narrative: 32-year-old female with episodes of intense, spasm like abdominal wall pain lasting 5 sec or so Initial Vital Signs Initial Vital Signs: Vital Signs Temperature 98.5 F 01/15/18 03:52 Pulse Rate 84 01/15/18 03:52 Respiratory Rate 18 01/15/18 03:52 Blood Pressure 154/105 H 01/15/18 03:52 Pulse Oximetry 99 01/15/18 03:52 Const General: cooperative, well developed and in distress Nutritional Appearance: well nourished and obese Orientation: alert, awake, oriented x3 and not confused HENMS Head: normocephalic and atraumatic Ears: external ears normal and TM's normal bilaterally Nose: external nose normal and No nasal discharge Face and sinus: sinuses nontender, face symmetric, no sinus tenderness and No dry mucous membranes Mouth: oral mucosae normal and moist mucous membranes Teeth and gingiva: dentition normal Throat: tonsils normal and uvula midline Eyes General: appearance normal, both eyes and all related structures Eyelids: eyelids normal Conjunctivae: conjunctivae normal Sclera: sclerae normal Pupils: PERRL EOM: EOM intact bilaterally Neck Neck: normal visual inspection, trachea midline, No lymphadenopathy, No midline deformity and No JVD Lymphatic: No lymphedema Chest Chest: normal inspection of the chest Resp Effort & Inspection: normal respiratory effort, able to speak in complete sentences, no respiratory distress and no use of accessory muscles Auscultation: clear to auscultation bilaterally, no rales, no rhonchi and no wheezes Cardio Rate: regular rate Rhythm: regular rhythm Heart Sounds: no click, no gallops, no murmurs and no rubs Pulses: normal peripheral pulses GI Inspection: non-distended Palpation: soft, no hepatosplenomegaly, No guarding, No pulsatile mass and No tender Auscultation: normal bowel sounds Back/Spine/Pelvis Back: No CVA tenderness Cervical Spine: cervical ROM normal and No pain with cervical ROM Thoracic/Lumbar Spine: thoracic and lumbar spine normal to inspection Skin General: no rashes or lesions noted, No jaundice and No petechiae Neuro General: alert, oriented x3, gait normal and no focal motor deficits Speech: speech normal Extrem General: full ROM, no clubbing, cyanosis or edema, no pedal edema and no calf tenderness Psych Appearance: well kempt Mental Status: mental status grossly normal Speech and Movement: agitated Attitude: cooperative Thought Content: normal and suicidality Judgment: judgment good Course Orders Ordered: ED Orders 01/15/18 04:10 Urine Drug Screen, Rapid Stat 01/15/18 04:11 Basic Metabolic Panel Stat 01/15/18 04:12 XR acute abdomen series Stat Complete Blood Count AUTO DIFF Stat Vital Signs - 8 hr 01/15/18 03:52 Temperature 98.5 F Pulse Rate 84 Respiratory Rate 18 Blood Pressure 154/105 H Pulse Oximetry 99 Discharge Plan Departure Prescriptions: No Action fluconazole 150 mg tablet 150 mg PO ONCE Qty: 1 RF: 0 albuterol sulfate 90 mcg/actuation aerosol powdr breath activated 2 puff INHALATION Q4H PRN (Reason: shortness of breath or wheezing) Qty: 1 RF : 0 amitriptyline 10 mg tablet 10 mg PO DAILY RF: 0 verapamil 120 mg capsule,ext rel. pellets 24 hr 120 mg PO DAILY RF: 0 omeprazole 20 MG capsule,delayed release(DR/EC) 20 mg PO BID Qty: 60 RF: 11 epinephrine [EpiPen 2-Mark] 0.3 MG/0.3 ML auto-injector 0.3 mg INJ SEE INSTRUCTIONS PRNQty: 2 RF: 0 medroxyprogesterone 150 MG/1 ML suspension 150 mg IM [id number] Qty: 0 RF: 0 diclofenac sodium [Voltaren] 1 % gel 1 alex Topical QDAY Qty: 100 RF: 3 lamotrigine 150 MG tablet 300 mg PO HS Qty: 60 RF: 6 sertraline [Zoloft] 100 MG tablet 100 mg PO HS Qty: 90 RF: 1 levothyroxine 100 MCG tablet 0.1 mg PO QAM Qty: 90 RF: 3 levothyroxine 88 MCG tablet 88 mcg PO QDAY Qty: 90 RF: 3 naproxen 500 MG tablet 500 mg PO BID Qty: 60 RF: 1 potassium chloride 20 MEQ/15 ML liquid 20 meq PO Q DAY Qty: 150 RF: 3 ondansetron [Zofran ODT] 4 MG tablet,disintegrating 4 mg Sublingual Q6HP PRNQty: 30 RF: 2 clonazepam 1 MG tablet 1 mg PO BID AND HS Qty: 120 RF: 3 dextroamphetamine-amphetamine [Adderall] 15 MG tablet 15 mg PO QDAY Qty: 30 RF: 0 dextroamphetamine-amphetamine [Adderall XR] 15 MG capsule,extended release 24hr 15 mg PO QDAY Qty: 30 RF: 0 ranitidine HCl 150 MG tablet 150 mg PO BID Qty: 60 RF: 11 [MagDelay] Qty: 0 RF: 0 mupirocin 2 % ointment Topical TID Qty: 22 RF: 0 carisoprodol 350 MG tablet 350 mg PO TIDP PRNQty: 90 RF: 0 acyclovir 400 MG tablet 400 mg PO BID Qty: 60 RF: 11 ondansetron [Zofran ODT] 4 mg tablet,disintegrating 4 mg PO Q6H Qty: 14 RF: 0 methocarbamol 750 mg tablet 750 mg PO QID PRN (Reason: muscle spasm) Qty: 30 RF: 0
[2018-01-15 04:40] LABS: Urine Amphetamines Positive (Negative); Urine Barbiturates Negative (Negative); Urine Benzodiazepines Negative (Negative); Urine Cocaine Negative (Negative); Urine MDMA Negative (Negative); Urine Methadone Negative (Negative); Urine Methamphetamines Positive (Negative); Urine Morphine/Opi cutoff 2000 Negative (Negative); Urine Oxycodone Negative (Negative); Urine Phencyclidine Negative (Negative); Urine Tetrahydrocannabinol Negative (Negative); Urine Tricyclic Antidepressant Negative (Negative)
[2018-01-15 04:52] LABS: Add Manual Diff / Slide Review NO; Basophils Percent Auto 0.7 % (0-2); Hematocrit 42.1 % (36-46); Hemoglobin 14.4 g/dL (12.0-16.0); Lymphocytes Percent Auto 23.9 % (25-40); Mean Corpuscular HGB Conc 34.3 % (30-36); Mean Corpuscular Hemoglobin 30.1 PG (26-34); Mean Corpuscular Volume 87.9 fL (80-100); Monocytes Percent Auto 8.1 % (3-14); Neutrophils Absolute Auto 6300 /uL (3000-5900); Neutrophils Percent Auto 65.3 % (50-75); Platelet Count 301 X10^3/uL (150-400); Red Blood Cell Count 4.79 X10^6/uL (4.0-5.2); Red Cell Distribution Width 13.2 % (11.6-14.8); White Blood Cell Count 9.7 X10^3/uL (4.5-11.0)
[2018-01-15 04:55] LABS: Ictotest Urine Negative (Negative)
[2018-01-15 05:02] LABS: RBC Urine 1-5/HPF (0-5/HPF); Squamous Epithelial Cell Urine 1-5 /HPF; WBC Urine 5-10/HPF (0-5/HPF)
[2018-01-15 05:03] LABS: BUN Creatinine Ratio 16.7 (6-22); Blood Urea Nitrogen 15 mg/dL (7-17); Calcium 9.3 mg/dL (8.4-10.2); Carbon Dioxide 27 mmol/L (22-32); Chloride 104 mmol/L (98-107); Estimated Glomerular Filt Rate > 60.0 mL/min (>60); Glucose 95 mg/dL (70-100); HEMOLYSIS 20 (0-50); Potassium 4.2 mmol/L (3.4-5.1); Sodium 140 mmol/L (137-145)
[2018-01-15 05:03] LABS: Bacteria Urine Few (2-10); Culture Indicated Urine Cult Not Indicated; Mucus Urine 1+ (Negative)
[2018-01-15] MEDS: CYCLOBENZAPRINE 10 MG PREPACK 1 BOTTLE MISC (05:25)
== END 2018-01-15 05:38 | disposition home or self-care (01) ==
PROVIDERS: Emergency Provider Emergency Medicine
DX: N39.0 Urinary tract infection, site not specified (principal); M62.838 Other muscle spasm
CPT/HCPCS: 36415; 74022; 80048; 80305; 81003; 81015; 81025; 85025; 99283; 99284

== ENCOUNTER → 2018-03-08 15:13 | Outpatient (CLI) | payer OTHER, MEDICAID, SELFPAY ==
[2018-03-08 16:05] LABS: Add Manual Diff / Slide Review NO; Basophils Percent Auto 0.8 % (0-2); Eosinophils Percent Auto 1.2 % (2-4); Hematocrit 41.1 % (36-46); Hemoglobin 13.8 g/dL (12.0-16.0); Hemoglobin A1C% w Est Avg Glu 5.2 % (4.0-6.0); Lymphocytes Percent Auto 22.3 % (25-40); Mean Corpuscular HGB Conc 33.5 % (30-36); Mean Corpuscular Hemoglobin 30.1 PG (26-34); Mean Corpuscular Volume 89.8 fL (80-100); Neutrophils Absolute Auto 6800 /uL (3000-5900); Neutrophils Percent Auto 69.7 % (50-75); Platelet Count 287 X10^3/uL (150-400); Red Blood Cell Count 4.58 X10^6/uL (4.0-5.2); White Blood Cell Count 9.7 X10^3/uL (4.5-11.0)
[2018-03-08 16:08] LABS: Pregnancy Test Serum,Qual Negative (Negative)
[2018-03-08 16:09] LABS: Alanine Aminotransferase 41 IU/L (9-52); Albumin 4.3 g/dL (3.5-5.0); Albumin Globulin Ratio 1.7 (1.0-2.8); Alkaline Phosphatase 62 U/L (38-126); Aspartate Aminotransferase 25 IU/L (14-36); BUN Creatinine Ratio 13.8 (6-22); Bilirubin Total 0.3 mg/dL (0.2-1.3); Blood Urea Nitrogen 11 mg/dL (7-17); Carbon Dioxide 25 mmol/L (22-32); Chloride 101 mmol/L (98-107); Cholesterol 158 mg/dL (140-199); Estimated Glomerular Filt Rate > 60.0 mL/min (>60); Globulin 2.6 g/dL (1.7-4.1); Glucose 92 mg/dL (70-100); HDL Cholesterol 61 mg/dL (40-60); HEMOLYSIS < 15 (0-50); LDL Cholesterol Calculated 78 mg/dL (<100); Potassium 3.8 mmol/L (3.4-5.1); Sodium 140 mmol/L (137-145); Total Protein 6.9 g/dL (6.3-8.2); Triglycerides 94 mg/dL (35-150)
[2018-03-08 17:14] LABS: Vitamin D 25 Hydroxy (D3) 32.9 ng/mL (30.0-100.0)
[2018-03-08 17:51] LABS: Free T4, Direct Thyroxine 0.43 ng/dL (0.78-2.19)
== END ==
PROVIDERS: Visit Provider Internal Medicine
DX: E55.9 Vitamin D deficiency, unspecified (principal); N92.6 Irregular menstruation, unspecified; E87.6 Hypokalemia; Z76.89 Persons encountering health services in other specified circumstances
CPT/HCPCS: 36415; 80053; 80061; 82306; 83036; 84439; 84443; 84703; 85025

== ENCOUNTER → 2018-04-11 17:25 | Outpatient (CLI) | payer OTHER, MEDICAID, SELFPAY ==
[2018-04-11 19:50] LABS: Pregnancy Test Serum,Qual Negative (Negative)
== END ==
PROVIDERS: PCP Internal Medicine; Visit Provider Internal Medicine
DX: N91.2 Amenorrhea, unspecified (principal)
CPT/HCPCS: 36415; 84703

== ENCOUNTER 2018-05-03 01:08 | Emergency (ER) | payer OTHER, MEDICAID, SELFPAY ==
--- NOTE | 2018-05-03 01:12 | ED_ITS ---
HPI - General Adult General Chief complaint: Extremity Problem,Nontraumatic Stated complaint: states in a lot of pain all over muscle problem Time Seen by Provider: 05/03/18 01:09 Source: patient Mode of arrival: ambulatory Limitations: no limitations History of Present Illness HPI narrative: patient unwilling to participate in much of the history taking. When asked what her problem is she says this and points to her body. She states that her muscles are contorting she will not answer any more questions regarding her presenting symptoms. She has been evaluated here in the emergency department in the past for muscle spasms with completely normal workup. She states she has followed up with the primary doctor in [place] who started her on thyroid medication. She states she has not tried anything for this prior to arrival. States that it started approximately 1.5 hr prior to arrival. Related Data Home Medications Medication Instructions Recorded Confirmed medroxyprogesterone 150 mg IM [id number] #0 02/17/17 12/25/17 [MagDelay] #0 08/23/17 12/25/17 amitriptyline 10 mg tablet 10 mg PO DAILY 12/25/17 12/25/17 verapamil ER 120 mg 24 hr 120 mg PO DAILY 12/25/17 12/25/17 capsule,extended release Previous Rx's Medication Instructions Recorded omeprazole 20 mg PO BID #60 cap 11/25/16 epinephrine [EpiPen 2-Mark] 0.3 mg INJ SEE INSTRUCTIONS PRN #2 02/03/17 kit diclofenac sodium [Voltaren] 1 alex TOPICAL QDAY #100 gm 06/05/17 lamotrigine 300 mg PO HS #60 tab 06/20/17 levothyroxine 0.1 mg PO QAM #90 tab 06/20/17 levothyroxine 88 mcg PO QDAY #90 tab 06/20/17 naproxen 500 mg PO BID #60 tab 06/20/17 sertraline [Zoloft] 100 mg PO HS #90 tab 06/20/17 ondansetron [Zofran ODT] 4 mg SUBLINGUAL Q6HP PRN #30 odt 07/25/17 potassium chloride 20 meq PO Q DAY #150 ml 07/25/17 clonazepam 1 mg PO BID AND HS #120 tab 08/17/17 dextroamphetamine-amphetamine 15 mg PO QDAY #30 cer 08/17/17 [Adderall XR] dextroamphetamine-amphetamine 15 mg PO QDAY #30 tab 08/17/17 [Adderall] ranitidine HCl 150 mg PO BID #60 tab 08/18/17 mupirocin 0 alex TOPICAL TID #22 gm 08/26/17 carisoprodol 350 mg PO TIDP PRN #90 tab 09/05/17 acyclovir 400 mg PO BID #60 tab 09/18/17 ondansetron [Zofran ODT] 4 mg PO Q6H #14 tab 10/30/17 albuterol sulfate 90 mcg/actuation 2 puff INHALATION Q4H PRN #1 each 11/02/17 breath activated powder inhaler fluconazole 150 mg tablet 150 mg PO ONCE #1 tab 11/02/17 methocarbamol 750 mg PO QID PRN #30 tab 01/11/18 Allergies Allergy/AdvReac Type Severity Reaction Status Date / Time acetaminophen [ACETAMINOPHEN] Allergy Intermediate RASH WITH Verified 05/03/18 01:22 LARGE AMOUNTS doxycycline [DOXYCYCLINE] Allergy Intermediate VOMITING Verified 05/03/18 01:22 adhesive tape [ADHESIVE TAPE] Allergy Unknown Verified 05/03/18 01:22 bee venom protein (honey bee) Allergy Unknown Verified 05/03/18 01:22 [BEE VENOM PROTEIN (HONEY BEE)] Milk Containing Products Allergy Unknown Verified 05/03/18 01:22 [MILK CONTAINING PRODUCTS] Review of Systems Review of Systems Patient unwilling to participate review of systems when I obtained from her is recorded below Musculoskeletal Comments: muscles are contorting COUNT INCLUDES THE [facility] Social History Smoking Status: Former smoker alcohol intake: never Exam Initial Vital Signs Initial Vital Signs: Vital Signs Temperature 97.4 F L 05/03/18 01:16 Pulse Rate 96 H 05/03/18 01:16 Respiratory Rate 18 05/03/18 01:16 Blood Pressure 159/96 H 05/03/18 01:16 Pulse Oximetry 95 05/03/18 01:16 Const General: well groomed Orientation: alert and awake HENMT Head: normal to inspection and normocephalic Resp Effort & Inspection: normal respiratory effort Cardio Rate: regular rate Rhythm: regular rhythm GI Inspection: non-distended Skin Lesions: no lesions Rashes: no rashes Neuro General: alert and awake Extrem Other: no gross deformities, no muscle fasciculations, no muscle spasms felt Psych Appearance: grossly normal and well kempt Course Orders Ordered: ED Orders 05/03/18 01:30 Basic Metabolic Panel Stat Complete Blood Count AUTO DIFF Stat Thyroid Stimulating Hormone Stat Discontinued Medications Cyclobenzaprine HCl (Flexeril) 10 mg PO NOW ONE Stop: 05/03/18 02:14 Last Admin: 05/03/18 02:17 Dose: Not Given Ketorolac Tromethamine (Toradol) 30 mg IM NOW ONE Stop: 05/03/18 01:29 Last Admin: 05/03/18 01:42 Dose: 30 mg Methocarbamol (Robaxin) 750 mg PO NOW ONE Stop: 05/03/18 01:49 Vital Signs - 8 hr 05/03/18 01:16 Temperature 97.4 F L Pulse Rate 96 H Respiratory Rate 18 Blood Pressure 159/96 H Pulse Oximetry 95 Medical Decision Making Lab Data Lab results reviewed: Yes I reviewed the patient's lab results. Result diagrams: 05/03/18 01:30 05/03/18 01:30 Lab Results 05/03/18 05/03/18 05/03/18 Range/Units 01:30 01:30 01:30 WBC 9.6 (4.5-11.0) X10^3/uL RBC 4.43 (4.0-5.2) X10^6/uL Hgb 13.3 (12.0-16.0) g/dL Hct 39.1 (36-46) % MCV 88.2 (80-100) fL MCH 29.9 (26-34) PG MCHC 33.9 (30-36) % RDW 12.7 (11.6-14.8) % Plt Count 280 (150-400) X10^3/uL Neut % (Auto) 62.0 (50-75) % Lymph % (Auto) 25.9 (25-40) % Mcdonough % (Auto) 9.1 (3-14) % Eos % (Auto) 2.5 (2-4) % Baso % (Auto) 0.5 (0-2) % Neut # (Auto) 5900 (0180-4470) /uL Sodium 139 (137-145) mmol/L Potassium 4.0 (3.4-5.1) mmol/L Chloride 103 (98-107) mmol/L Carbon Dioxide 27 (22-32) mmol/L BUN 14 (7-17) mg/dL Creatinine 0.70 (0.52-1.04) mg/dL Estimated GFR > 60.0 (>60) mL/min BUN/Creatinine Ratio 20.0 (6-22) Glucose 95 (70-100) mg/dL Calcium 8.9 (8.4-10.2) mg/dL TSH 9.75 H (0.47-4.68) uIU/mL MDM Narrative Medical decision making narrative: patient was minimally helpful in her medical care today. She refused to answer many of the questions. Initially she stated that she could take Toradol but when I talked to her about it she then stated that she could take it. She was given a IM dose of Toradol. We did not have Robaxin in the night pharmacy. Ordered her Flexeril but she stated that she could not take this medication despite not being on her allergies. Labs were unremarkable. Her TSH is still elevated however has improved from February. She does have a primary care doctor and alea Lucero who is managing this. I discussed this with her. Informed her that she needed to contact her primary care doctor to discuss any changes in her medications. No emergent condition found. Discharge Plan Departure Patient Disposition: Home Clinical Impression: Myalgia, Hypothyroid Instructions: Hypothyroidism Activity Restrictions/Additional Instructions: your thyroid stimulating hormone today was 9.75. This was improved from a lab draw from the 08 of March of this year. the level of this lab does indicate that your Synthroid dose is too low. I do recommend you contact your primary care doctor to discuss any changes in this medication and to also discuss the skin changes that you mentioned and also the muscle pain that you are having. Prescriptions: No Action fluconazole 150 mg tablet 150 mg PO ONCE Qty: 1 RF: 0 albuterol sulfate 90 mcg/actuation aerosol powdr breath activated 2 puff INHALATION Q4H PRN (Reason: shortness of breath or wheezing) Qty: 1 RF : 0 amitriptyline 10 mg tablet 10 mg PO DAILY RF: 0 verapamil 120 mg capsule,ext rel. pellets 24 hr 120 mg PO DAILY RF: 0 omeprazole 20 MG capsule,delayed release(DR/EC) 20 mg PO BID Qty: 60 RF: 11 epinephrine [EpiPen 2-Mark] 0.3 MG/0.3 ML auto-injector 0.3 mg INJ SEE INSTRUCTIONS PRNQty: 2 RF: 0 medroxyprogesterone 150 MG/1 ML suspension 150 mg IM [id number] Qty: 0 RF: 0 diclofenac sodium [Voltaren] 1 % gel 1 alex Topical QDAY Qty: 100 RF: 3 lamotrigine 150 MG tablet 300 mg PO HS Qty: 60 RF: 6 sertraline [Zoloft] 100 MG tablet 100 mg PO HS Qty: 90 RF: 1 levothyroxine 100 MCG tablet 0.1 mg PO QAM Qty: 90 RF: 3 levothyroxine 88 MCG tablet 88 mcg PO QDAY Qty: 90 RF: 3 naproxen 500 MG tablet 500 mg PO BID Qty: 60 RF: 1 potassium chloride 20 MEQ/15 ML liquid 20 meq PO Q DAY Qty: 150 RF: 3 ondansetron [Zofran ODT] 4 MG tablet,disintegrating 4 mg Sublingual Q6HP PRNQty: 30 RF: 2 clonazepam 1 MG tablet 1 mg PO BID AND HS Qty: 120 RF: 3 dextroamphetamine-amphetamine [Adderall] 15 MG tablet 15 mg PO QDAY Qty: 30 RF: 0 dextroamphetamine-amphetamine [Adderall XR] 15 MG capsule,extended release 24hr 15 mg PO QDAY Qty: 30 RF: 0 ranitidine HCl 150 MG tablet 150 mg PO BID Qty: 60 RF: 11 [MagDelay] Qty: 0 RF: 0 mupirocin 2 % ointment Topical TID Qty: 22 RF: 0 carisoprodol 350 MG tablet 350 mg PO TIDP PRNQty: 90 RF: 0 acyclovir 400 MG tablet 400 mg PO BID Qty: 60 RF: 11 ondansetron [Zofran ODT] 4 mg tablet,disintegrating 4 mg PO Q6H Qty: 14 RF: 0 methocarbamol 750 mg tablet 750 mg PO QID PRN (Reason: muscle spasm) Qty: 30 RF: 0
[2018-05-03 01:16] VITALS: BP 159/96; PULSE 96; RESP 18; TEMP 36.3; O2SAT 95; BMI 37.8
--- NOTE | 2018-05-03 01:19 | PC.NURSE ---
She would not answer my questions about her pain,would not describe it,would not tell me exactly where she hurt,she just squirmed on the gurney.
--- NOTE | 2018-05-03 01:23 | PC.NURSE ---
Patient states pain all over. Dr. Keyes and I attempt to ask questions and do assessment. Pt rolling around on bed, tearful. Able to move all 4 extremities. Per conversation with significant other. He has been with her for 4 months and she has episodes of full body muscle spasms where she just goes down. Pt not answering any questions but occasionally states profanities. Pt does mention she has been seeing other doctors that say this may be related to low thyroid. Pt does not hold still for assessment.
[2018-05-03] MEDS: KETOROLAC 60 MG/2 ML VIAL 30 MG IM (01:42)
--- NOTE | 2018-05-03 01:45 | PC.NURSE ---
Upon first attempt to administer Ketorlac, pt refuses medication. States I can't take that Dr. Keyes notified. After conversation with , Pt agrees to medication. During administration pt moving constantly while needle in her skin. I informed pt that she needs to hold still for her safety and mine. Pt states she can't because she is in pain.
[2018-05-03 01:47] LABS: Add Manual Diff / Slide Review NO; Basophils Percent Auto 0.5 % (0-2); Eosinophils Percent Auto 2.5 % (2-4); Hematocrit 39.1 % (36-46); Hemoglobin 13.3 g/dL (12.0-16.0); Lymphocytes Percent Auto 25.9 % (25-40); Mean Corpuscular HGB Conc 33.9 % (30-36); Mean Corpuscular Hemoglobin 29.9 PG (26-34); Mean Corpuscular Volume 88.2 fL (80-100); Monocytes Percent Auto 9.1 % (3-14); Neutrophils Absolute Auto 5900 /uL (3000-5900); Platelet Count 280 X10^3/uL (150-400); Red Blood Cell Count 4.43 X10^6/uL (4.0-5.2); Red Cell Distribution Width 12.7 % (11.6-14.8); White Blood Cell Count 9.6 X10^3/uL (4.5-11.0)
[2018-05-03 01:57] LABS: Blood Urea Nitrogen 14 mg/dL (7-17); Calcium 8.9 mg/dL (8.4-10.2); Carbon Dioxide 27 mmol/L (22-32); Chloride 103 mmol/L (98-107); Estimated Glomerular Filt Rate > 60.0 mL/min (>60); Glucose 95 mg/dL (70-100); HEMOLYSIS < 15 (0-50); Sodium 139 mmol/L (137-145)
--- NOTE | 2018-05-03 02:17 | PC.NURSE ---
Attempt to medicate pt. When I entered the room, she was quiet at first and then began rolling on bed again. Pt refused Flexeril states it gives her a migraine. aware. no new order at this time.
[2018-05-03 02:34] LABS: Thyroid Stimulating Hormone 9.75 uIU/mL (0.47-4.68)
== END 2018-05-03 03:44 | disposition home or self-care (01) ==
PROVIDERS: Emergency Provider Emergency Medicine; PCP Internal Medicine
DX: M79.10 Myalgia, unspecified site (principal); E03.9 Hypothyroidism, unspecified
CPT/HCPCS: 36415; 80048; 84443; 85025; 96372; 99282; 99283; J1885

== ENCOUNTER 2018-06-24 22:41 | Emergency (ER) | payer OTHER, MEDICAID, SELFPAY ==
[2018-06-24 22:55] VITALS: BP 143/103; PULSE 127; RESP 16; TEMP 36.6; O2SAT 98; BMI 31.4
--- NOTE | 2018-06-24 23:01 | ED.FEMALEGU ---
HPI - Female Genitourinary General Chief complaint: Urogenital-Female Stated complaint: states kidney pain Time Seen by Provider: 06/24/18 23:00 Source: patient Mode of arrival: ambulatory Limitations: no limitations History of Present Illness HPI Narrative: The patient has frequent lower back pain and cramps. She takes multiple medications including muscle relaxants. She has been feeling increased lower back discomfort since yesterday. The back pain radiates around to the suprapubic area. She denies dysuria, but the suprapubic area is uncomfortable. The symptoms has previously been been evaluated and UTI has been found. She has no associated fever or chills. She does have mild nausea. She admits to very poor fluid intake over the last couple days. She tells me she has felt weak and dizzy a couple times at her friend's home, she has not passed out but says she has felt like maybe she could. She has had no chest pain, palpitations or dyspnea. She has no cardiac history. She has no history of syncope. Related Data Home Medications Medication Instructions Recorded Confirmed medroxyprogesterone 150 mg IM [id number] #0 02/17/17 12/25/17 [MagDelay] #0 08/23/17 12/25/17 amitriptyline 10 mg tablet 10 mg PO DAILY 12/25/17 12/25/17 verapamil ER 120 mg 24 hr 120 mg PO DAILY 12/25/17 12/25/17 capsule,extended release Previous Rx's Medication Instructions Recorded omeprazole 20 mg PO BID #60 cap 11/25/16 epinephrine [EpiPen 2-Mark] 0.3 mg INJ SEE INSTRUCTIONS PRN #2 02/03/17 kit diclofenac sodium [Voltaren] 1 alex TOPICAL QDAY #100 gm 06/05/17 lamotrigine 300 mg PO HS #60 tab 06/20/17 levothyroxine 0.1 mg PO QAM #90 tab 06/20/17 levothyroxine 88 mcg PO QDAY #90 tab 06/20/17 naproxen 500 mg PO BID #60 tab 06/20/17 sertraline [Zoloft] 100 mg PO HS #90 tab 06/20/17 ondansetron [Zofran ODT] 4 mg SUBLINGUAL Q6HP PRN #30 odt 02/27/18 potassium chloride 20 meq PO Q DAY #150 ml 07/25/17 clonazepam 1 mg PO BID AND HS #120 tab 08/17/17 dextroamphetamine-amphetamine 15 mg PO QDAY #30 cer 08/17/17 [Adderall XR] dextroamphetamine-amphetamine 15 mg PO QDAY #30 tab 08/17/17 [Adderall] ranitidine HCl 150 mg PO BID #60 tab 08/18/17 mupirocin 0 alex TOPICAL TID #22 gm 08/26/17 carisoprodol 350 mg PO TIDP PRN #90 tab 09/05/17 acyclovir 400 mg PO BID #60 tab 09/18/17 ondansetron [Zofran ODT] 4 mg PO Q6H #14 tab 10/30/17 albuterol sulfate 90 mcg/actuation 2 puff INHALATION Q4H PRN #1 each 11/02/17 breath activated powder inhaler fluconazole 150 mg tablet 150 mg PO ONCE #1 tab 11/02/17 methocarbamol 750 mg PO QID PRN #30 tab 01/11/18 sulfamethoxazole-trimethoprim 1 tab PO BID #14 tab 06/25/18 Allergies Allergy/AdvReac Type Severity Reaction Status Date / Time acetaminophen [ACETAMINOPHEN] Allergy Intermediate RASH WITH Verified 05/03/18 01:22 LARGE AMOUNTS doxycycline [DOXYCYCLINE] Allergy Intermediate VOMITING Verified 05/03/18 01:22 adhesive tape [ADHESIVE TAPE] Allergy Unknown Verified 05/03/18 01:22 bee venom protein (honey bee) Allergy Unknown Verified 05/03/18 01:22 [BEE VENOM PROTEIN (HONEY BEE)] Milk Containing Products Allergy Unknown Verified 05/03/18 01:22 [MILK CONTAINING PRODUCTS] Review of Systems Review of Systems ROS Unobtainable: All systems reviewed & are unremarkable except as noted in HPI and below Constitutional Reports body ache(s), Reports chills, Denies fever(s), Reports lethargy and Reports weakness ENT Ears, Nose, Mouth, and Throat: Denies change in voice, Denies vertigo, Denies dizziness, Denies neck pain and Denies sore throat Cardiovascular Denies chest pain, Denies irregular heart rhythm, Denies lightheadedness, Denies palpitations, Denies dyspnea, Denies dyspnea on exertion and Denies orthopnea Respiratory Denies cough, Denies dyspnea, Denies dyspnea on exertion and Denies wheezing Gastrointestinal Gastrointestinal: Reports abdominal pain, Denies change in bowel habits, Denies diarrhea, Reports nausea and Denies vomiting Genitourinary Denies dysmenorrhea, Denies dysuria and Reports other (Suprapubic discomfort.) Musculoskeletal Reports back pain (Chronic low back pain.), Denies arthralgias, Reports limited range of motion, Denies neck pain and Denies numbness Integumentary/Breasts Denies pruritus, Denies erythema, Denies rash and Denies wounds Neurologic Denies confusion, Denies vertigo, Denies dizziness, Denies numbness, Reports weakness and Reports other (Near syncope) Psychiatric Denies anxiety, Denies confusion and Denies mood swings Endocrine Denies palpitations Allergic/Immunologic Denies wheezing [facility] Medical History Bipolar 1 disorder (Acute) GERD (gastroesophageal reflux disease) (Acute) PTSD (post-traumatic stress disorder) (Acute) Rheumatoid arthritis (Acute) Thyroid cancer (Acute) Surgical History History of thyroidectomy History of tonsillectomy Status post laparoscopy Family History Grandfather Cancer Diabetes mellitus Heart disease Hypertension High cholesterol Grandmother Cancer Diabetes mellitus Hypertension High cholesterol Mental health problem Mother Age: 56 Diabetes mellitus Grandmother Cancer Social History Smoking Status: Former smoker alcohol intake: never Exam Initial Vital Signs Initial Vital Signs: Vital Signs Temperature 97.8 F 06/24/18 22:55 Pulse Rate 127 H 06/24/18 22:55 Respiratory Rate 16 06/24/18 22:55 Blood Pressure 143/103 H 06/24/18 22:55 Pulse Oximetry 98 06/24/18 22:55 Const General: cooperative and well developed Nutritional Appearance: well nourished Orientation: alert, awake, oriented x3 and not confused [facility] Head: normocephalic and atraumatic Ears: external ears normal and TM's normal bilaterally Nose: external nose normal and No nasal discharge Face and sinus: sinuses nontender, face symmetric, no sinus tenderness and No dry mucous membranes Mouth: oral mucosae normal and moist mucous membranes Teeth and gingiva: dentition normal Throat: tonsils normal and uvula midline Chest Chest: normal inspection of the chest Resp Effort & Inspection: normal respiratory effort, able to speak in complete sentences, no respiratory distress and no use of accessory muscles Auscultation: clear to auscultation bilaterally, no rales, no rhonchi and no wheezes Cardio Rate: tachycardic Rhythm: regular rhythm Heart Sounds: no click, no gallops, no murmurs and no rubs Pulses: normal peripheral pulses GI Inspection: non-distended Palpation: soft, no hepatosplenomegaly, No pulsatile mass and tender (Mild suprapubic tenderness with out guarding or rebound. No RLQ tenderness.) Auscultation: normal bowel sounds Back/Spine/Pelvis Back: No CVA tenderness and other (Bilateral lumbar tenderness.) Skin General: no rashes or lesions noted, No jaundice and No petechiae Neuro General: alert, oriented x3, gait normal and no focal motor deficits Speech: speech normal Extrem General: normal to inspection Course Orders Ordered: ED Orders 06/24/18 23:00 Urine Microscopic Stat Discontinued Medications Ondansetron HCl (Zofran Odt) 4 mg SL NOW ONE Stop: 06/24/18 23:12 Last Admin: 06/24/18 23:21 Dose: 4 mg Trimethoprim/Sulfamethoxazole (Bactrim Ds) 1 tab PO NOW ONE Stop: 06/25/18 00:00 Vital Signs - 8 hr 06/24/18 22:55 06/25/18 00:18 Temperature 97.8 F Pulse Rate 127 H 78 Respiratory Rate 16 18 Blood Pressure 143/103 H 116/87 Pulse Oximetry 98 100 MDM - Female Genitourinary Lab Data Lab Results 06/24/18 Range/Units 23:00 Urine RBC 0-1/hpf (0-5/HPF) Urine WBC None seen (0-5/HPF) Ur Squamous Epith Cells 1-5 /hpf Urine Bacteria Occasional (0-1) (None) Urine Mucus 2+ H (Negative) Ur Culture Indicated? Cult not indicated Point of Care Testing Test Results Negative Urine Dip Bedside Urine Glucose Negative Bedside Urine Bilirubin ++ 2 Bedside Urine Ketone + 15 Urine Specific [place] 1.030 Bedside Urine Occult Blood +/- Bedside Urine pH 6.0 Bedside Urine Protein + 30 Bedside Urine Urobilinogen +/- 1mg Bedside Urine Nitrite - Negative Bedside Urine Leukocytes +/- 15 Esterase MDM Narrative Medical decision making narrative: Lab evaluation shows mild pyuria. She is symptomatic. She will be treated as a UTI. She is advised to drink more fluids, she has not been drinking last couple days. She is tachycardic but afebrile, not significantly ill. She has been drinking fluids. She has also been noncompliant with thyroid medications, she is advised strongly fusion medications appropriately. Discharge Plan Departure Patient Disposition: Home Clinical Impression: Urinary tract infection Discharge Date/Time: 06/25/18 00:19 Interventions: ED Discharge Assessment Last Done: 06/25/18 00:18 Instructions: DI for Urinary Tract Infection (UTI) Activity Restrictions/Additional Instructions: Be sure you are drinking plenty of fluids on a daily basis. Septic DS 2 times daily for 1 week. We discussed a follow-up appointment for your thyroid recheck. Be sure you get the follow-up appointment, but also be sure you are taking her medications daily. Return to the ER as needed. Prescriptions: New sulfamethoxazole-trimethoprim 800-160 mg tablet 1 tab PO BID Qty: 14 RF: 0 No Action fluconazole 150 mg tablet 150 mg PO ONCE Qty: 1 RF: 0 albuterol sulfate 90 mcg/actuation aerosol powdr breath activated 2 puff INHALATION Q4H PRN (Reason: shortness of breath or wheezing) Qty: 1 RF: 0 amitriptyline 10 mg tablet 10 mg PO DAILY RF: 0 verapamil 120 mg capsule,ext rel. pellets 24 hr 120 mg PO DAILY RF: 0 omeprazole 20 MG capsule,delayed release(DR/EC) 20 mg PO BID Qty: 60 RF: 11 epinephrine [EpiPen 2-Mark] 0.3 MG/0.3 ML auto-injector 0.3 mg INJ SEE INSTRUCTIONS PRNQty: 2 RF: 0 medroxyprogesterone 150 MG/1 ML suspension 150 mg IM [id number] Qty: 0 RF: 0 diclofenac sodium [Voltaren] 1 % gel 1 alex Topical QDAY Qty: 100 RF: 3 lamotrigine 150 MG tablet 300 mg PO HS Qty: 60 RF: 6 sertraline [Zoloft] 100 MG tablet 100 mg PO HS Qty: 90 RF: 1 levothyroxine 100 MCG tablet 0.1 mg PO QAM Qty: 90 RF: 3 levothyroxine 88 MCG tablet 88 mcg PO QDAY Qty: 90 RF: 3 naproxen 500 MG tablet 500 mg PO BID Qty: 60 RF: 1 potassium chloride 20 MEQ/15 ML liquid 20 meq PO Q DAY Qty: 150 RF: 3 ondansetron [Zofran ODT] 4 MG tablet,disintegrating 4 mg Sublingual Q6HP PRNQty: 30 RF: 2 clonazepam 1 MG tablet 1 mg PO BID AND HS Qty: 120 RF: 3 dextroamphetamine-amphetamine [Adderall] 15 MG tablet 15 mg PO QDAY Qty: 30 RF: 0 dextroamphetamine-amphetamine [Adderall XR] 15 MG capsule,extended release 24hr 15 mg PO QDAY Qty: 30 RF: 0 ranitidine HCl 150 MG tablet 150 mg PO BID Qty: 60 RF: 11 [MagDelay] Qty: 0 RF: 0 mupirocin 2 % ointment Topical TID Qty: 22 RF: 0 carisoprodol 350 MG tablet 350 mg PO TIDP PRNQty: 90 RF: 0 acyclovir 400 MG tablet 400 mg PO BID Qty: 60 RF: 11 ondansetron [Zofran ODT] 4 mg tablet,disintegrating 4 mg PO Q6H Qty: 14 RF: 0 methocarbamol 750 mg tablet 750 mg PO QID PRN (Reason: muscle spasm) Qty: 30 RF: 0
[2018-06-24 23:12] LABS: WBC Urine None Seen (0-5/HPF)
[2018-06-24 23:15] LABS: RBC Urine 0-1/HPF (0-5/HPF); Squamous Epithelial Cell Urine 1-5 /HPF
[2018-06-24 23:16] LABS: Bacteria Urine Occasional (0-1); Culture Indicated Urine Cult Not Indicated; Mucus Urine 2+ (Negative)
[2018-06-24] MEDS: ONDANSETRON 4 MG ODT SL (23:21)
[2018-06-25 00:18] VITALS: BP 116/87; PULSE 78; RESP 18; O2SAT 100
== END 2018-06-25 00:19 | disposition home or self-care (01) ==
PROVIDERS: Emergency Provider Emergency Medicine; PCP Internal Medicine
DX: N39.0 Urinary tract infection, site not specified (principal)
CPT/HCPCS: 81003; 81015; 81025; 99283

== ENCOUNTER 2018-06-25 22:27 | Emergency (ER) | payer OTHER, MEDICAID, SELFPAY ==
[2018-06-25 22:37] VITALS: BP 143/91; PULSE 118; RESP 16; TEMP 36.7; O2SAT 100; BMI 31.4
[2018-06-25 22:58] LABS: WBC Urine None Seen (0-5/HPF)
[2018-06-25 23:06] LABS: RBC Urine 1-5/HPF (0-5/HPF); Squamous Epithelial Cell Urine 5-10 /HPF
[2018-06-25 23:07] LABS: Bacteria Urine Occasional (0-1); Culture Indicated Urine Cult Not Indicated; Mucus Urine 2+ (Negative)
--- NOTE | 2018-06-25 23:18 | DI.RAD.S_ITS ---
PROCEDURE: XR CHEST 1V INDICATIONS: chills, tachycardia TECHNIQUE: One view of the chest was acquired. COMPARISON: [facility], , CHEST 1 VIEW, 04/16/2012, 18:44. FINDINGS: Surgical changes and devices: None. Lungs and pleura: There is a 1 cm nodular density in the left upper lobe. No pleural effusions or pneumothorax. Mediastinum: Mediastinal contours appear normal. Heart size is normal. Bones and chest wall: No suspicious bony lesions. Overlying soft tissues appear unremarkable. IMPRESSION: 1. A 1 cm nodular density in the left upper lobe. A short term followup standard 2 view chest x-rays recommended. If the density persists on followup chest x-ray, chest CT is suggested for further evaluation. Dictated by: Clive Nick M.D. on 06/26/2018 at 9:40 Approved by: Clive Nick M.D. on 06/26/2018 at 9:43
[2018-06-25] MEDS: SODIUM CHLORIDE 0.9% 1,000 ML 1000 ML IV (23:54)
[2018-06-25] MEDS: KETOROLAC 60 MG/2 ML VIAL 15 MG IV (23:54)
[2018-06-26 00:03] VITALS: BP 116/69; PULSE 96; RESP 16; O2SAT 100
[2018-06-26 00:12] LABS: Add Manual Diff / Slide Review NO; Basophils Absolute Auto 0 /uL (0-100); Basophils Percent Auto 0.5 % (0-2); Eosinophils Absolute Auto 100 /uL (0-450); Eosinophils Percent Auto 1.5 % (2-4); Hematocrit 41.9 % (36-46); Hemoglobin 13.9 g/dL (12.0-16.0); Lymphocytes Absolute Auto 2400 /uL (1100-4500); Lymphocytes Percent Auto 24.8 % (25-40); Mean Corpuscular HGB Conc 33.1 % (30-36); Mean Corpuscular Hemoglobin 29.2 PG (26-34); Mean Corpuscular Volume 88.2 fL (80-100); Monocytes Absolute Auto 700 /uL (0-900); Monocytes Percent Auto 7.1 % (3-14); Neutrophils Absolute Auto 6300 /uL (1500-7000); Neutrophils Percent Auto 66.1 % (50-75); Platelet Count 268 X10^3/uL (150-400); Red Blood Cell Count 4.76 X10^6/uL (4.0-5.2); Red Cell Distribution Width 12.9 % (11.6-14.8); White Blood Cell Count 9.5 X10^3/uL (4.5-11.0)
[2018-06-26 00:22] LABS: Lactate (Lactic Acid) 0.9 mmol/L (0.7-2.1)
[2018-06-26 00:23] LABS: Alanine Aminotransferase 46 IU/L (9-52); Albumin 4.5 g/dL (3.5-5.0); Albumin Globulin Ratio 1.3 (1.0-2.8); Alkaline Phosphatase 63 U/L (38-126); Aspartate Aminotransferase 40 IU/L (14-36); BUN Creatinine Ratio 21.3 (6-22); Bilirubin Total 0.6 mg/dL (0.2-1.3); Blood Urea Nitrogen 17 mg/dL (7-17); Carbon Dioxide 25 mmol/L (22-32); Chloride 103 mmol/L (98-107); Estimated Glomerular Filt Rate > 60.0 mL/min (>60); Globulin 3.5 g/dL (1.7-4.1); Glucose 84 mg/dL (70-100); HEMOLYSIS 57 (0-50); Potassium 4.3 mmol/L (3.4-5.1); Sodium 138 mmol/L (137-145)
[2018-06-26 00:24] LABS: Influenza A and B by PCR Rapid Negative (Negative)
[2018-06-26 00:37] LABS: Procalcitonin < 0.05 ng/mL (<0.5)
[2018-06-26] MEDS: TRIMETH/SULFA 160/800 (DS) TABLET 1 TAB PO (00:43)
[2018-06-26 01:14] VITALS: BP 114/74; PULSE 101; RESP 20; O2SAT 97
--- NOTE | 2018-06-26 04:33 | ED.BACK ---
HPI - Back Pain/Injury General Chief Complaint: Back Pain/Injury Stated Complaint: KIDNEY BLADDER PAIN NECK PAIN Time Seen by Provider: 06/25/18 22:34 Source: patient and family Mode of arrival: ambulatory Limitations: no limitations History of Present Illness HPI Narrative: 33-year-old female, former smoker presents alone with chief complaint of similar symptoms as last night. She presented with dysuria, frequency and urgency as well as back pain and states it feels the same as former episodes of pyelonephritis. She was given antibiotics last evening as well as a prescription, which she has yet to fill. She feels weak and a bit fatigued as well as nauseated. She denies chest pain or shortness of breath. She has had no vomiting or diarrhea. She denies vaginal bleeding or discharge. MD Complaint: back pain Onset (ago): day(s) Duration: constant Similar Symptoms Previously: Yes Location: lumbar spine Severity: moderate Quality: aching Radiation: none Relieving factors: none Exacerbating factors: none Related Data Home Medications Medication Instructions Recorded Confirmed medroxyprogesterone 150 mg IM [id number] #0 02/17/17 12/25/17 [MagDelay] #0 08/23/17 12/25/17 amitriptyline 10 mg tablet 10 mg PO DAILY 12/25/17 12/25/17 verapamil ER 120 mg 24 hr 120 mg PO DAILY 12/25/17 12/25/17 capsule,extended release Previous Rx's Medication Instructions Recorded omeprazole 20 mg PO BID #60 cap 11/25/16 epinephrine [EpiPen 2-Mark] 0.3 mg INJ SEE INSTRUCTIONS PRN #2 02/03/17 kit diclofenac sodium [Voltaren] 1 alex TOPICAL QDAY #100 gm 06/05/17 lamotrigine 300 mg PO HS #60 tab 06/20/17 levothyroxine 0.1 mg PO QAM #90 tab 06/20/17 levothyroxine 88 mcg PO QDAY #90 tab 06/20/17 naproxen 500 mg PO BID #60 tab 06/20/17 sertraline [Zoloft] 100 mg PO HS #90 tab 06/20/17 ondansetron [Zofran ODT] 4 mg SUBLINGUAL Q6HP PRN #30 odt 07/25/17 potassium chloride 20 meq PO Q DAY #150 ml 07/25/17 clonazepam 1 mg PO BID AND HS #120 tab 08/17/17 dextroamphetamine-amphetamine 15 mg PO QDAY #30 cer 08/17/17 [Adderall XR] dextroamphetamine-amphetamine 15 mg PO QDAY #30 tab 08/17/17 [Adderall] ranitidine HCl 150 mg PO BID #60 tab 08/18/17 mupirocin 0 alex TOPICAL TID #22 gm 08/26/17 carisoprodol 350 mg PO TIDP PRN #90 tab 09/05/17 acyclovir 400 mg PO BID #60 tab 09/18/17 ondansetron [Zofran ODT] 4 mg PO Q6H #14 tab 10/30/17 albuterol sulfate 90 mcg/actuation 2 puff INHALATION Q4H PRN #1 each 11/02/17 breath activated powder inhaler fluconazole 150 mg tablet 150 mg PO ONCE #1 tab 11/02/17 methocarbamol 750 mg PO QID PRN #30 tab 01/11/18 sulfamethoxazole-trimethoprim 1 tab PO BID #14 tab 06/25/18 Allergies Allergy/AdvReac Type Severity Reaction Status Date / Time acetaminophen [ACETAMINOPHEN] Allergy Intermediate RASH WITH Verified 05/03/18 01:22 LARGE AMOUNTS doxycycline [DOXYCYCLINE] Allergy Intermediate VOMITING Verified 05/03/18 01:22 adhesive tape [ADHESIVE TAPE] Allergy Unknown Verified 05/03/18 01:22 bee venom protein (honey bee) Allergy Unknown Verified 05/03/18 01:22 [BEE VENOM PROTEIN (HONEY BEE)] Milk Containing Products Allergy Unknown Verified 05/03/18 01:22 [MILK CONTAINING PRODUCTS] Review of Systems Constitutional Reports body ache(s), Denies chills, Denies fever(s), Denies lethargy and Denies weakness Eyes Denies change in vision, Denies eye discharge, Denies irritation and Denies loss of vision ENT Ears, Nose, Mouth, and Throat: Denies change in voice, Denies neck pain and Denies sore throat Cardiovascular Denies chest pain, Denies irregular heart rhythm, Denies lightheadedness, Denies palpitations, Denies dyspnea, Denies dyspnea on exertion and Denies orthopnea Respiratory Denies cough, Denies dyspnea, Denies dyspnea on exertion and Denies wheezing Gastrointestinal Gastrointestinal: Denies abdominal pain, Denies change in bowel habits, Denies diarrhea, Denies nausea and Denies vomiting Genitourinary Denies hematuria, Reports flank pain, Denies urinary incontinence and Reports urinary urgency Musculoskeletal Denies neck pain Integumentary/Breasts Denies pruritus, Denies erythema, Denies rash and Denies wounds Neurologic Denies confusion, Denies loss of vision and Denies weakness Psychiatric Denies anxiety, Denies confusion, Denies depression, Denies homicidal ideation and Denies suicidal ideation Endocrine Denies palpitations Hematologic/Lymphatic Denies easy bruising Allergic/Immunologic Denies wheezing [facility] Medical History Bipolar 1 disorder (Acute) GERD (gastroesophageal reflux disease) (Acute) PTSD (post-traumatic stress disorder) (Acute) Rheumatoid arthritis (Acute) Thyroid cancer (Acute) Surgical History History of thyroidectomy History of tonsillectomy Status post laparoscopy Family History Grandfather Cancer Diabetes mellitus Heart disease Hypertension High cholesterol Grandmother Cancer Diabetes mellitus Hypertension High cholesterol Mental health problem Mother Age: 56 Diabetes mellitus Grandmother Cancer Social History Smoking Status: Former smoker alcohol intake: never Exam Narrative Exam Narrative: GENERAL: This is a well-nourished, well-developed patient, in mild distress. HEAD: Atraumatic. Normocephalic. No temporal or scalp tenderness. EYES: Pupils equal round and reactive. Extraocular motions intact. No scleral icterus. No injection or drainage. ENT: Nose without bleeding, purulent drainage or septal hematoma. Throat without erythema, tonsillar hypertrophy or exudate. Uvula midline. Airway patent. NECK: Trachea midline. No JVD or lymphadenopathy. Supple, nontender, no meningeal signs. CARDIOVASCULAR: Regular rate and rhythm without murmurs, gallops, or rubs. RESPIRATORY: Clear to auscultation. Breath sounds equal bilaterally. No wheezes, rales, or rhonchi. GASTROINTESTINAL: Abdomen soft, non-tender, nondistended. No hepato-splenomegaly, or palpable masses. No guarding. EXTREMITIES: No clubbing, cyanosis, or edema. No joint tenderness, effusion, or edema noted. BACK: Nontender without deformity or crepitance. Mild bilateral CVA tenderness NEURO: AOx3. SKIN: No rash or erythema. Initial Vital Signs Initial Vital Signs: Vital Signs Temperature 98.1 F 06/25/18 22:37 Pulse Rate 118 H 06/25/18 22:37 Respiratory Rate 16 06/25/18 22:37 Blood Pressure 143/91 H 06/25/18 22:37 Pulse Oximetry 100 06/25/18 22:37 Course Orders Ordered: ED Orders 06/25/18 22:53 Urine Microscopic Stat 06/25/18 23:18 XR chest 1V Stat 06/25/18 23:50 Complete Blood Count AUTO DIFF Stat Comprehensive Metabolic Panel Stat Influenza A and B by PCR Rapid Stat Lactate (Lactic Acid) Stat Procalcitonin Stat Discontinued Medications Sodium Chloride (Normal Saline 0.9%) 1,000 mls @ 1,000 mls/hr IV BOLUS ONE Stop: 06/26/18 00:16 Last Infusion: 06/26/18 01:14 Dose: 0 mls/hr Admin: 06/25/18 23:54 Dose: 1,000 mls/hr Ketorolac Tromethamine (Toradol) 15 mg IV NOW ONE Stop: 06/25/18 23:18 Last Admin: 06/25/18 23:54 Dose: 15 mg Trimethoprim/Sulfamethoxazole (Bactrim Ds) 1 tab PO NOW ONE Stop: 06/26/18 00:38 Last Admin: 06/26/18 00:43 Dose: 1 tab Reevaluation(s) Reevaluation #1: Patient feeling tremendous relief after above-stated therapies Vital Signs - 8 hr 06/25/18 22:37 06/26/18 00:03 06/26/18 01:14 Temperature 98.1 F Pulse Rate 118 H 96 H 101 H Respiratory Rate 16 16 20 Blood Pressure 143/91 H 114/74 Blood Pressure [Right Arm] 116/69 Pulse Oximetry 100 100 97 MDM - Back Pain/Injury Differential Diagnosis Differential diagnosis: Likely strain of lumbar region, renal colic, pyelonephritis, thoracic back pain and discitis Lab Data Result diagrams: 06/25/18 23:50 06/25/18 23:50 Lab Results 06/25/18 06/25/18 06/25/18 Range/Units 22:53 23:50 23:50 WBC 9.5 (4.5-11.0) X10^3/uL RBC 4.76 (4.0-5.2) X10^6/uL Hgb 13.9 (12.0-16.0) g/dL Hct 41.9 (36-46) % MCV 88.2 (80-100) fL MCH 29.2 (26-34) PG MCHC 33.1 (30-36) % RDW 12.9 (11.6-14.8) % Plt Count 268 (150-400) X10^3/uL Neut % (Auto) 66.1 (50-75) % Lymph % (Auto) 24.8 L (25-40) % [facility] % (Auto) 7.1 (3-14) % Eos % (Auto) 1.5 L (2-4) % Baso % (Auto) 0.5 (0-2) % Neut # (Auto) 6300 (6500-6088) /uL Lymph # (Auto) 2400 (9794-8633) /uL [facility] # (Auto) 700 (0-900) /uL Eos # (Auto) 100 (0-450) /uL Baso # (Auto) 0 (0-100) /uL Sodium (137-145) mmol/L Potassium (3.4-5.1) mmol/L Chloride (98-107) mmol/L Carbon Dioxide (22-32) mmol/L BUN (7-17) mg/dL Creatinine (0.52-1.04) mg/dL Estimated GFR (>60) mL/min BUN/Creatinine Ratio (6-22) Glucose (70-100) mg/dL Lactate (0.7-2.1) mmol/L Calcium (8.4-10.2) mg/dL Total Bilirubin (0.2-1.3) mg/dL AST (14-36) IU/L ALT (9-52) IU/L Alkaline Phosphatase (38-126) U/L Total Protein (6.3-8.2) g/dL Albumin (3.5-5.0) g/dL Globulin (1.7-4.1) g/dL Albumin/Globulin Ratio (1.0-2.8) Procalcitonin < 0.05 (<0.5) ng/mL Urine RBC 1-5/hpf (0-5/HPF) Urine WBC None seen (0-5/HPF) Ur Squamous Epith Cells 5-10 /hpf H Urine Bacteria Occasional (0-1) (None) Urine Mucus 2+ H (Negative) Ur Culture Indicated? Cult not indicated Influenza A & B (PCR) (Negative) 06/25/18 06/25/18 06/25/18 Range/Units 23:50 23:50 23:50 WBC (4.5-11.0) X10^3/uL RBC (4.0-5.2) X10^6/uL Hgb (12.0-16.0) g/dL Hct (36-46) % MCV (80-100) fL MCH (26-34) PG MCHC (30-36) % RDW (11.6-14.8) % Plt Count (150-400) X10^3/uL Neut % (Auto) (50-75) % Lymph % (Auto) (25-40) % [facility] % (Auto) (3-14) % Eos % (Auto) (2-4) % Baso % (Auto) (0-2) % Neut # (Auto) (8436-8040) /uL Lymph # (Auto) (7787-0046) /uL [facility] # (Auto) (0-900) /uL Eos # (Auto) (0-450) /uL Baso # (Auto) (0-100) /uL Sodium 138 (137-145) mmol/L Potassium 4.3 (3.4-5.1) mmol/L Chloride 103 (98-107) mmol/L Carbon Dioxide 25 (22-32) mmol/L BUN 17 (7-17) mg/dL Creatinine 0.80 (0.52-1.04) mg/dL Estimated GFR > 60.0 (>60) mL/min BUN/Creatinine Ratio 21.3 (6-22) Glucose 84 (70-100) mg/dL Lactate 0.9 (0.7-2.1) mmol/L Calcium 9.0 (8.4-10.2) mg/dL Total Bilirubin 0.6 (0.2-1.3) mg/dL AST 40 H (14-36) IU/L ALT 46 (9-52) IU/L Alkaline Phosphatase 63 (38-126) U/L Total Protein 8.0 (6.3-8.2) g/dL Albumin 4.5 (3.5-5.0) g/dL Globulin 3.5 (1.7-4.1) g/dL Albumin/Globulin Ratio 1.3 (1.0-2.8) Procalcitonin (<0.5) ng/mL Urine RBC (0-5/HPF) Urine WBC (0-5/HPF) Ur Squamous Epith Cells Urine Bacteria (None) Urine Mucus (Negative) Ur Culture Indicated? Influenza A & B (PCR) Negative (Negative) Urine Dip Bedside Urine Glucose Negative Bedside Urine Bilirubin + 1 Bedside Urine Ketone +++ 80 Urine Specific [place] 1.030 Bedside Urine Occult Blood +/- Bedside Urine pH 6.0 Bedside Urine Protein +/- 15 Bedside Urine Urobilinogen - Negative Bedside Urine Nitrite - Negative Bedside Urine Leukocytes + 70 Esterase MDM Narrative Medical decision making narrative: Multiple etiologies for patient's symptoms considered including: [Pyelonephritis, urinary tract infection, viral illness, myofascial strain versus other] Patient's symptoms improved or duration of stay with above-stated therapies. Findings and discharge diagnosis discussed with patient/family followed by verbalization of understanding Return precautions discussed with patient/family whom verbalize understanding. Discharge Plan Departure Patient Disposition: Home Clinical Impression: UTI (urinary tract infection) Discharge Date/Time: 06/26/18 01:14 Interventions: ED Discharge Assessment Last Done: 06/26/18 01:14 Instructions: DI for Urinary Tract Infection (UTI) Activity Restrictions/Additional Instructions: *You have been diagnosed with [acute urinary tract infection, possible pyelonephritis ] *What to do: *Take medications as directed *Follow up with your primary care provider in 2-3 days, call for an appointment. Let them know you were seen in the Emergency Department and that we ask that you be seen in follow up *Return to ER if you should have any new, worsening or concerning symptoms Prescriptions: No Action fluconazole 150 mg tablet 150 mg PO ONCE Qty: 1 RF: 0 albuterol sulfate 90 mcg/actuation aerosol powdr breath activated 2 puff INHALATION Q4H PRN (Reason: shortness of breath or wheezing) Qty: 1 RF: 0 amitriptyline 10 mg tablet 10 mg PO DAILY RF: 0 verapamil 120 mg capsule,ext rel. pellets 24 hr 120 mg PO DAILY RF: 0 omeprazole 20 MG capsule,delayed release(DR/EC) 20 mg PO BID Qty: 60 RF: 11 epinephrine [EpiPen 2-Mark] 0.3 MG/0.3 ML auto-injector 0.3 mg INJ SEE INSTRUCTIONS PRNQty: 2 RF: 0 medroxyprogesterone 150 MG/1 ML suspension 150 mg IM [id number] Qty: 0 RF: 0 diclofenac sodium [Voltaren] 1 % gel 1 alex Topical QDAY Qty: 100 RF: 3 lamotrigine 150 MG tablet 300 mg PO HS Qty: 60 RF: 6 sertraline [Zoloft] 100 MG tablet 100 mg PO HS Qty: 90 RF: 1 levothyroxine 100 MCG tablet 0.1 mg PO QAM Qty: 90 RF: 3 levothyroxine 88 MCG tablet 88 mcg PO QDAY Qty: 90 RF: 3 naproxen 500 MG tablet 500 mg PO BID Qty: 60 RF: 1 potassium chloride 20 MEQ/15 ML liquid 20 meq PO Q DAY Qty: 150 RF: 3 ondansetron [Zofran ODT] 4 MG tablet,disintegrating 4 mg Sublingual Q6HP PRNQty: 30 RF: 2 clonazepam 1 MG tablet 1 mg PO BID AND HS Qty: 120 RF: 3 dextroamphetamine-amphetamine [Adderall] 15 MG tablet 15 mg PO QDAY Qty: 30 RF: 0 dextroamphetamine-amphetamine [Adderall XR] 15 MG capsule,extended release 24hr 15 mg PO QDAY Qty: 30 RF: 0 ranitidine HCl 150 MG tablet 150 mg PO BID Qty: 60 RF: 11 [MagDelay] Qty: 0 RF: 0 mupirocin 2 % ointment Topical TID Qty: 22 RF: 0 carisoprodol 350 MG tablet 350 mg PO TIDP PRNQty: 90 RF: 0 acyclovir 400 MG tablet 400 mg PO BID Qty: 60 RF: 11 ondansetron [Zofran ODT] 4 mg tablet,disintegrating 4 mg PO Q6H Qty: 14 RF: 0 methocarbamol 750 mg tablet 750 mg PO QID PRN (Reason: muscle spasm) Qty: 30 RF: 0 sulfamethoxazole-trimethoprim 800-160 mg tablet 1 tab PO BID Qty: 14 RF: 0 Referrals: Crudder,Romain [Primary Care Provider] -
== END 2018-06-26 01:14 | disposition home or self-care (01) ==
PROVIDERS: Emergency Provider Emergency Medicine; PCP Internal Medicine
DX: N39.0 Urinary tract infection, site not specified (principal)
CPT/HCPCS: 36415; 36591; 71045; 80053; 81003; 81015; 83605; 84145; 85025; 87040; 87400; 96361; 96374; 99283; 99284; J1885

== ENCOUNTER 2018-07-02 04:38 | Emergency (ER) | payer OTHER, MEDICAID, SELFPAY ==
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
[2018-07-02 04:43] VITALS: BP 140/83; PULSE 98; RESP 20; TEMP 36.8; O2SAT 98; BMI 31.4
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
--- NOTE | 2018-07-02 05:36 | PC.NURSE ---
when patient asked to use a bedpan to give a urine sample so that we can do a test before she went to CT/Xray. patient refused and states that it hurts to move my hips, I cannot get on a bedpan right now. provider in room when patient refused.
[2018-07-02 06:02] VITALS: BP 124/68; PULSE 109; RESP 16; O2SAT 98
[2018-07-02 07:01] VITALS: BP 121/63; PULSE 92; RESP 16; O2SAT 98
[2018-07-02] MEDS: KETOROLAC 60 MG/2 ML VIAL 30 MG IM (07:30)
[2018-07-02] MEDS: diazePAM 5 MG TABLET PO (07:30)
[2018-07-02 07:33] VITALS: BP 119/62; PULSE 97; RESP 12; O2SAT 100
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
== END 2018-07-02 07:48 | disposition home or self-care (01) ==
PROVIDERS: Emergency Provider Emergency Medicine; PCP Internal Medicine
DX: M62.830 Muscle spasm of back (principal)
CPT/HCPCS: 71045; 72125; 72170; 96372; 99283; 99285; J1885

== ENCOUNTER 2018-11-10 21:24 | Emergency (ER) | payer OTHER, MEDICAID, SELFPAY ==
[2018-11-10 21:28] VITALS: BP 149/107; PULSE 105; RESP 22; TEMP 36.9; O2SAT 98; BMI 31.8
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
== END 2018-11-10 22:40 | disposition left against medical advice (07) ==
PROVIDERS: Emergency Provider Emergency Medicine; PCP Internal Medicine
DX: M79.675 Pain in left toe(s) (principal); Z53.21 Procedure and treatment not carried out due to patient leaving prior to being seen by health care provider
CPT/HCPCS: 73630; 99282

== ENCOUNTER 2019-04-17 05:09 | Emergency (ER) | payer OTHER, MEDICAID, SELFPAY ==
--- NOTE | 2019-04-17 05:13 | ED.LOWEXIN ---
HPI - Extremity Injury (Lower) General Chief Complaint: Extremity Injury, Lower Stated Complaint: right foot injury, slipped on mud Time Seen by Provider: 04/17/19 05:13 Source: patient Mode of arrival: Ambulatory Limitations: no limitations History of Present Illness HPI Narrative: 34-year-old female smoker with history of asthma presents with a chief complaint of a right foot injury suffered last evening. She was walking outside in the dark when her foot became stuck in a month puddle and she walked forward causing a hyperflexion at the ankle. She felt pain in the bottom of her foot near the heel and has had pain ever since. She denies numbness, tingling or weakness. She denies any knee ankle or hip pain. She denies any history of the same. It is worse when she moves and improves with rest. MD complaint: foot injury Onset (ago): hour(s) Type of Injury: hyperflexion Place: street/outdoors Severity: moderate Relieving factors: NSAID Exacerbating factors: movement Context: walking Associated symptoms: snap/pop sensation Related Data Home Medications Medication Instructions Recorded Confirmed medroxyprogesterone 150 mg IM [id number] #0 02/17/17 12/25/17 [MagDelay] #0 08/23/17 12/25/17 amitriptyline 10 mg tablet 10 mg PO DAILY 12/25/17 12/25/17 verapamil 120 mg 24 hr 120 mg PO DAILY 12/25/17 12/25/17 capsule,extended release Previous Rx's Medication Instructions Recorded omeprazole 20 mg PO BID #60 cap 11/25/16 epinephrine [EpiPen 2-Mark] 0.3 mg INJ SEE INSTRUCTIONS PRN #2 02/03/17 kit diclofenac sodium [Voltaren] 1 alex TOPICAL QDAY #100 gm 06/05/17 lamotrigine 300 mg PO HS #60 tab 06/20/17 levothyroxine 0.1 mg PO QAM #90 tab 06/20/17 levothyroxine 88 mcg PO QDAY #90 tab 06/20/17 naproxen 500 mg PO BID #60 tab 06/20/17 sertraline [Zoloft] 100 mg PO HS #90 tab 06/20/17 ondansetron [Zofran ODT] 4 mg SUBLINGUAL Q6HP PRN #30 odt 07/25/17 potassium chloride 20 meq PO Q DAY #150 ml 07/25/17 clonazepam 1 mg PO BID AND HS #120 tab 08/17/17 dextroamphetamine-amphetamine 15 mg PO QDAY #30 cer 08/17/17 [Adderall XR] dextroamphetamine-amphetamine 15 mg PO QDAY #30 tab 08/17/17 [Adderall] ranitidine HCl 150 mg PO BID #60 tab 08/18/17 mupirocin 0 alex TOPICAL TID #22 gm 08/26/17 carisoprodol 350 mg PO TIDP PRN #90 tab 09/05/17 acyclovir 400 mg PO BID #60 tab 09/18/17 ondansetron [Zofran ODT] 4 mg PO Q6H #14 tab 10/30/17 albuterol sulfate 90 mcg/actuation 2 puff INHALATION Q4H PRN #1 each 11/02/17 breath activated powder inhaler fluconazole 150 mg tablet 150 mg PO ONCE #1 tab 11/02/17 methocarbamol 750 mg PO QID PRN #30 tab 01/11/18 sulfamethoxazole-trimethoprim 1 tab PO BID #14 tab 06/25/18 diazepam [Valium] 5 mg PO BID-QID PRN #10 tab 07/02/18 Allergies Allergy/AdvReac Type Severity Reaction Status Date / Time acetaminophen [ACETAMINOPHEN] Allergy Intermediate RASH WITH Verified 11/10/18 21:37 LARGE AMOUNTS doxycycline [DOXYCYCLINE] Allergy Intermediate VOMITING Verified 11/10/18 21:37 adhesive tape [ADHESIVE TAPE] Allergy Unknown Verified 11/10/18 21:37 bee venom protein (honey bee) Allergy Unknown Verified 11/10/18 21:37 [BEE VENOM PROTEIN (HONEY BEE)] Milk Containing Products Allergy Unknown Verified 11/10/18 21:37 [MILK CONTAINING PRODUCTS] Review of Systems Constitutional Constitutional: Denies chills, Denies fatigue, Denies fever(s), Denies frequent falls, Denies lethargy and Denies weakness Eyes Eyes: Denies change in vision, Denies eye discharge, Denies irritation and Denies loss of vision ENT Ears, Nose, Mouth, and Throat: Denies change in voice, Denies dizziness, Denies neck pain, Denies sore throat and Denies throat swelling Cardiovascular Cardiovascular: Denies chest pain, Denies irregular heart rhythm, Denies lightheadedness, Denies palpitations, Denies dyspnea, Denies dyspnea on exertion and Denies orthopnea Respiratory Respiratory: Denies cough, Denies dyspnea, Denies dyspnea on exertion and Denies wheezing Gastrointestinal Gastrointestinal: Denies abdominal pain, Denies change in bowel habits, Denies diarrhea, Denies nausea and Denies vomiting Genitourinary Genitourinary: Denies hematuria, Denies flank pain, Denies urinary incontinence and Denies urinary urgency Musculoskeletal Musculoskeletal: Denies back pain, Reports limited range of motion, Denies muscle weakness, Denies neck pain, Denies numbness and Denies tingling Integumentary/Breasts Skin/Breast: Denies pruritus, Denies erythema, Denies rash and Denies wounds Neurologic Neurologic: Denies behavioral changes, Denies confusion, Denies dizziness, Denies frequent falls, Denies loss of vision, Denies numbness, Denies tingling and Denies weakness Psychiatric Psychiatric: Denies anxiety, Denies behavioral changes, Denies confusion, Denies depression, Denies homicidal ideation and Denies suicidal ideation Endocrine Endocrine: Denies fatigue, Denies flushing and Denies palpitations Hematologic/Lymphatic Hematologic/Lymphatic: Denies easy bruising Allergic/Immunologic Allergic/Immunologic: Denies urticaria, Denies throat swelling and Denies wheezing Patient History Medical History Bipolar 1 disorder (Acute) GERD (gastroesophageal reflux disease) (Acute) PTSD (post-traumatic stress disorder) (Acute) Rheumatoid arthritis (Acute) Thyroid cancer (Acute) Surgical History History of thyroidectomy History of tonsillectomy Status post laparoscopy Family History Grandfather Cancer Diabetes mellitus Heart disease Hypertension High cholesterol Grandmother Cancer Diabetes mellitus Hypertension High cholesterol Mental health problem Mother Age: 57 Diabetes mellitus Grandmother Cancer Social History Smoking Status: Current every day smoker alcohol intake: never alcohol intake frequency: 0-2 drinks per day Substance Use Type: does not use Exam Narrative Exam Narrative: GEN: AOx3 and in mild distress EYES: Pupils are equal, round, and reactive to light and accommodation. Extraoccular muscles are intact bilaterally. There is no subconjunctival hemorrhage or exudate. CHEST: Lungs are clear to auscultation bilaterally and free of wheezes, rales, or rhonchi. Heart rate is regular rhythm, there are no murmurs, clicks, rubs, or gallops. There is no chest wall tenderness. ABD: Abdomen is soft and nontender. There is no guarding or rebound. Bowel sounds are normal in all 4 quadrants. There is no mass or organomegaly. EXT: No obvious deformity, closed, isolated and neurovascularly intact. Exam would suggest an intact Achilles tendon as there is no palpable depression or divot in the location of the Achilles and squeezing the calf results in equal plantar flexion. She has pain over the Achilles as well as in the soft tissue anterior to the calcaneus on the plantar surface of her foot. SKIN: Warm, pink, and dry. No erythema or rash Initial Vital Signs Initial Vital Signs: Vital Signs Temperature 97.3 F L 04/17/19 05:27 Pulse Rate 94 H 04/17/19 05:27 Respiratory Rate 16 04/17/19 05:27 Blood Pressure 125/87 04/17/19 05:27 Pulse Oximetry 95 04/17/19 05:27 Procedures Orthopedic Splinting/Casting Injury #1: Side: right Lower Extremity Immobilizer: boot orthosis Other Orthopedic Equipment: crutches Post splinting neuro exam: intact Post splinting vascular exam: intact Placed by: Nursing Course Orders Ordered: ED Orders 04/17/19 05:15 XR foot RT min 3V Stat Vital Signs Vital signs: Vital Signs - 8 hr 04/17/19 05:27 Temperature 97.3 F L Pulse Rate 94 H Respiratory Rate 16 Blood Pressure 125/87 Pulse Oximetry 95 MDM - Extremity Injury (Lower) Imaging Data Foot Xray: Attestation: I personally reviewed and interpreted this imaging study as follows: My impression: No bony abnormality Discharge Plan Departure Patient Disposition: Home Clinical Impression: Achilles tendinitis Qualifiers: Laterality: right Qualified Code(s): M76.61 - Achilles tendinitis, right leg Instructions: DI for Foot Sprain Activity Restrictions/Additional Instructions: *You have been diagnosed with [ right foot sprain, possible achilles vs. plantar injury ] *What to do: *Take medications as directed: motrin for pain *Follow up with your primary care provider in 2-3 days, call for an appointment. Let them know you were seen in the Emergency Department and that we ask that you be seen in follow up *Return to ER if you should have any new, worsening or concerning symptoms Prescriptions: No Action fluconazole 150 mg tablet 150 mg PO ONCE Qty: 1 RF: 0 albuterol sulfate 90 mcg/actuation aerosol powdr breath activated 2 puff INHALATION Q4H PRN (Reason: shortness of breath or wheezing) Qty: 1 RF: 0 amitriptyline 10 mg tablet 10 mg PO DAILY RF: 0 verapamil 120 mg capsule,ext rel. pellets 24 hr 120 mg PO DAILY RF: 0 omeprazole 20 MG capsule,delayed release(DR/EC) 20 mg PO BID Qty: 60 RF: 11 epinephrine [EpiPen 2-Mark] 0.3 MG/0.3 ML auto-injector 0.3 mg INJ SEE INSTRUCTIONS PRNQty: 2 RF: 0 medroxyprogesterone 150 MG/1 ML suspension 150 mg IM [id number] Qty: 0 RF: 0 diclofenac sodium [Voltaren] 1 % gel 1 alex Topical QDAY Qty: 100 RF: 3 lamotrigine 150 MG tablet 300 mg PO HS Qty: 60 RF: 6 sertraline [Zoloft] 100 MG tablet 100 mg PO HS Qty: 90 RF: 1 levothyroxine 100 MCG tablet 0.1 mg PO QAM Qty: 90 RF: 3 levothyroxine 88 MCG tablet 88 mcg PO QDAY Qty: 90 RF: 3 naproxen 500 MG tablet 500 mg PO BID Qty: 60 RF: 1 potassium chloride 20 MEQ/15 ML liquid 20 meq PO Q DAY Qty: 150 RF: 3 ondansetron [Zofran ODT] 4 MG tablet,disintegrating 4 mg Sublingual Q6HP PRNQty: 30 RF: 2 clonazepam 1 MG tablet 1 mg PO BID AND HS Qty: 120 RF: 3 dextroamphetamine-amphetamine [Adderall] 15 MG tablet 15 mg PO QDAY Qty: 30 RF: 0 dextroamphetamine-amphetamine [Adderall XR] 15 MG capsule,extended release 24hr 15 mg PO QDAY Qty: 30 RF: 0 ranitidine HCl 150 MG tablet 150 mg PO BID Qty: 60 RF: 11 [MagDelay] Qty: 0 RF: 0 mupirocin 2 % ointment 0 alex Topical TID Qty: 22 RF: 0 carisoprodol 350 MG tablet 350 mg PO TIDP PRNQty: 90 RF: 0 acyclovir 400 MG tablet 400 mg PO BID Qty: 60 RF: 11 ondansetron [Zofran ODT] 4 mg tablet,disintegrating 4 mg PO Q6H Qty: 14 RF: 0 methocarbamol 750 mg tablet 750 mg PO QID PRN (Reason: muscle spasm) Qty: 30 RF: 0 sulfamethoxazole-trimethoprim 800-160 mg tablet 1 tab PO BID Qty: 14 RF: 0 diazepam [Valium] 5 mg tablet 5 mg PO BID-QID PRN (Reason: muscle spasm) Qty: 10 RF: 0 Referrals: Romain Nash [Primary Care Provider] - Marcelo Hanson MD [Physician] -
--- NOTE | 2019-04-17 05:15 | DI.RAD.S_ITS ---
PROCEDURE: XR FOOT RT MIN 3V INDICATIONS: right foot injury, slipped in the mud TECHNIQUE: 3 views of the foot were acquired. COMPARISON: None. FINDINGS: Bones: No fractures or dislocations. No suspicious bony lesions. Soft tissues: No tibiotalar joint effusion. Achilles tendon appears normal. IMPRESSION: No fracture. No osseous lesion. If symptoms and/or clinical suspicion for pathology persists, further assessment with repeat radiographs (7-10 days) or advanced imaging (e.g. CT, MRI or bone scan) may be helpful. Dictated by: Tamar Castanon MD, PhD on 04/17/2019 at 8:33 Approved by: Tamar Castanon MD, PhD on 04/17/2019 at 8:33
[2019-04-17 05:27] VITALS: BP 125/87; PULSE 94; RESP 16; TEMP 36.3; O2SAT 95; BMI 32.3
== END 2019-04-17 05:56 | disposition home or self-care (01) ==
PROVIDERS: Emergency Provider Emergency Medicine; PCP Internal Medicine
DX: M76.61 Achilles tendinitis, right leg (principal)
CPT/HCPCS: 73630; 99283

== ENCOUNTER 2019-05-23 03:22 | Emergency (ER) | payer OTHER, MEDICAID, SELFPAY ==
--- NOTE | 2019-05-23 03:30 | ED.WEAKNESS ---
HPI - Weakness General Chief complaint: Weakness Stated complaint: Generalized weakness Time Seen by Provider: 05/23/19 03:23 Source: EMS Mode of arrival: EMS Limitations: no limitations History of Present Illness HPI Narrative: 34-year-old female smoker with extensive mental health history presents by EMS for evaluation of some generalized weakness. The patient states that she has had some dysuria, frequency and urgency and had to walk a distance further than his normal for her and she started feeling weak. At this point she called EMS to be evaluated. She denies nausea or vomiting nor any change in her diet or medications. She denies any fever chills nor chest pain or shortness of breath. She does feel a little under the weather and has the urinary symptoms as mentioned. She denies any significant back pain but does state that maybe she feels a bit of an ache. She has had urinary infections and pyelonephritis before. She denies any vaginal bleeding or discharge MD Complaint: generalized weakness Onset (ago): day(s) Duration: constant Location: generalized Migration: none Severity: mild Relieving factors: none Associated symptoms: dysuria Related Data Home Medications Medication Instructions Recorded Confirmed medroxyprogesterone 150 mg IM [id number] #0 02/17/17 12/25/17 [MagDelay] #0 08/23/17 12/25/17 amitriptyline 10 mg tablet 10 mg PO DAILY 12/25/17 12/25/17 verapamil 120 mg 24 hr 120 mg PO DAILY 12/25/17 12/25/17 capsule,extended release Previous Rx's Medication Instructions Recorded omeprazole 20 mg PO BID #60 cap 11/25/16 epinephrine [EpiPen 2-Mark] 0.3 mg INJ SEE INSTRUCTIONS PRN #2 02/03/17 kit diclofenac sodium [Voltaren] 1 alex TOPICAL QDAY #100 gm 06/05/17 lamotrigine 300 mg PO HS #60 tab 06/20/17 levothyroxine 0.1 mg PO QAM #90 tab 06/20/17 levothyroxine 88 mcg PO QDAY #90 tab 06/20/17 naproxen 500 mg PO BID #60 tab 06/20/17 sertraline [Zoloft] 100 mg PO HS #90 tab 06/20/17 ondansetron [Zofran ODT] 4 mg SUBLINGUAL Q6HP PRN #30 odt 07/25/17 potassium chloride 20 meq PO Q DAY #150 ml 07/25/17 clonazepam 1 mg PO BID AND HS #120 tab 08/17/17 dextroamphetamine-amphetamine 15 mg PO QDAY #30 cer 08/17/17 [Adderall XR] dextroamphetamine-amphetamine 15 mg PO QDAY #30 tab 08/17/17 [Adderall] ranitidine HCl 150 mg PO BID #60 tab 08/18/17 mupirocin 0 alex TOPICAL TID #22 gm 08/26/17 carisoprodol 350 mg PO TIDP PRN #90 tab 09/05/17 acyclovir 400 mg PO BID #60 tab 09/18/17 ondansetron [Zofran ODT] 4 mg PO Q6H #14 tab 10/30/17 albuterol sulfate 90 mcg/actuation 2 puff INHALATION Q4H PRN #1 each 11/02/17 breath activated powder inhaler fluconazole 150 mg tablet 150 mg PO ONCE #1 tab 11/02/17 methocarbamol 750 mg PO QID PRN #30 tab 01/11/18 sulfamethoxazole-trimethoprim 1 tab PO BID #14 tab 06/25/18 diazepam [Valium] 5 mg PO BID-QID PRN #10 tab 07/02/18 cephalexin [Keflex] 500 mg PO QID 7 Days #28 cap 05/23/19 ondansetron 4 mg PO TID-QID PRN #10 tab 05/23/19 Allergies Allergy/AdvReac Type Severity Reaction Status Date / Time acetaminophen [ACETAMINOPHEN] Allergy Intermediate RASH WITH Verified 05/23/19 03:38 LARGE AMOUNTS doxycycline [DOXYCYCLINE] Allergy Intermediate VOMITING Verified 05/23/19 03:38 adhesive tape [ADHESIVE TAPE] Allergy Unknown Verified 05/23/19 03:38 bee venom protein (honey bee) Allergy Unknown Verified 05/23/19 03:38 [BEE VENOM PROTEIN (HONEY BEE)] Milk Containing Products Allergy Unknown Verified 05/23/19 03:38 [MILK CONTAINING PRODUCTS] Review of Systems Constitutional Constitutional: Denies chills, Denies fatigue, Denies fever(s), Denies frequent falls, Denies lethargy and Reports weakness Eyes Eyes: Denies change in vision, Denies eye discharge, Denies irritation and Denies loss of vision ENT Ears, Nose, Mouth, and Throat: Denies change in voice, Denies dizziness, Denies neck pain, Denies sore throat and Denies throat swelling Cardiovascular Cardiovascular: Denies chest pain, Denies irregular heart rhythm, Denies lightheadedness, Denies palpitations, Denies dyspnea, Denies dyspnea on exertion and Denies orthopnea Respiratory Respiratory: Denies cough, Denies dyspnea, Denies dyspnea on exertion and Denies wheezing Gastrointestinal Gastrointestinal: Denies abdominal pain, Denies change in bowel habits, Denies diarrhea, Denies nausea and Denies vomiting Genitourinary Genitourinary: Denies hematuria, Reports dysuria, Denies flank pain, Denies urinary incontinence and Denies urinary urgency Musculoskeletal Musculoskeletal: Denies back pain, Denies muscle weakness, Denies neck pain, Denies numbness and Denies tingling Integumentary/Breasts Skin/Breast: Denies pruritus, Denies erythema, Denies rash and Denies wounds Neurologic Neurologic: Denies behavioral changes, Denies confusion, Denies dizziness, Denies frequent falls, Denies loss of vision, Denies numbness, Denies tingling and Reports weakness Psychiatric Psychiatric: Denies anxiety, Denies behavioral changes, Denies confusion, Denies depression, Denies homicidal ideation and Denies suicidal ideation Endocrine Endocrine: Denies fatigue, Denies flushing and Denies palpitations Hematologic/Lymphatic Hematologic/Lymphatic: Denies easy bruising Allergic/Immunologic Allergic/Immunologic: Denies urticaria, Denies throat swelling and Denies wheezing Patient History Medical History Bipolar 1 disorder (Acute) GERD (gastroesophageal reflux disease) (Acute) PTSD (post-traumatic stress disorder) (Acute) Rheumatoid arthritis (Acute) Thyroid cancer (Acute) Surgical History History of thyroidectomy History of tonsillectomy Status post laparoscopy Family History Grandfather Cancer Diabetes mellitus Heart disease Hypertension High cholesterol Grandmother Cancer Diabetes mellitus Hypertension High cholesterol Mental health problem Mother Age: 57 Diabetes mellitus Grandmother Cancer Social History Smoking Status: Current every day smoker alcohol intake: never Smoking Status: Current every day smoker alcohol intake frequency: 0-2 drinks per day Substance Use Type: does not use Exam Narrative Exam Narrative: GENERAL: [34] year old patient appears stated age. Well-nourished, well-developed patient, in mild distress. HEAD: Atraumatic. Normocephalic. EYES: Pupils equal round and reactive. Extraocular motions intact. No scleral icterus. No injection or drainage. ENT: Nose without bleeding, purulent drainage. Throat without erythema, tonsillar hypertrophy or exudate. Airway patent. NECK: Trachea midline. Non tender CARDIOVASCULAR: Regular rate and rhythm without murmurs, gallops, or rubs. RESPIRATORY: Clear to auscultation. Breath sounds equal bilaterally. No wheezes, rales, or rhonchi. GASTROINTESTINAL: Abdomen soft, non-tender, nondistended. EXTREMITIES: No edema or joint tenderness. BACK: Nontender without deformity or crepitance. No flank tenderness. NEURO: AOx3. SKIN: No rash or erythema of visible areas Initial Vital Signs Initial Vital Signs: Vital Signs Temperature 98.6 F 05/23/19 03:39 Pulse Rate 84 05/23/19 03:39 Respiratory Rate 16 05/23/19 03:39 Blood Pressure 143/95 H 05/23/19 03:39 Course Orders Ordered: ED Orders 05/23/19 04:08 Urine Microscopic Stat Discontinued Medications Cefazolin Sodium (Keflex 250 Mg Prepack) 1 bottle MISC SEEINSTR ONE Stop: 05/23/19 04:12 Vital Signs Vital signs: Vital Signs - 8 hr 05/23/19 03:39 Temperature 98.6 F Pulse Rate 84 Respiratory Rate 16 Blood Pressure 143/95 H MDM - Weakness Lab Data Labs: Point of Care Testing Test Results Negative Glucose POC 85 Urine Dip Bedside Urine Glucose Negative Bedside Urine Bilirubin + 1 Bedside Urine Ketone + 15 Urine Specific [place] 1.020 Bedside Urine Occult Blood - Negative Bedside Urine pH 6.0 Bedside Urine Protein +/- 15 Bedside Urine Urobilinogen - Negative Bedside Urine Nitrite - Negative Bedside Urine Leukocytes + 70 Esterase Discharge Plan Departure Patient Disposition: Home Clinical Impression: Pyelonephritis Instructions: DI for Urinary Tract Infection (UTI) Activity Restrictions/Additional Instructions: *You have been diagnosed with [ acute UTI, possible early pyelonephritis ] *What to do: *Take medications as directed *Follow up with your primary care provider in 2-3 days, call for an appointment. Let them know you were seen in the Emergency Department and that we ask that you be seen in follow up *Return to ER if you should have any new, worsening or concerning symptoms, such as [fever > 101F, vomiting, shaking chills, or other bothersome symptoms ] Prescriptions: New cephalexin [Keflex] 500 mg capsule 500 mg PO QID 7 Days Qty: 28 RF: 0 ondansetron 4 mg tablet,disintegrating 4 mg PO TID-QID PRN (Reason: nausea and vomiting) Qty: 10 RF: 0 No Action fluconazole 150 mg tablet 150 mg PO ONCE Qty: 1 RF: 0 albuterol sulfate 90 mcg/actuation aerosol powdr breath activated 2 puff INHALATION Q4H PRN (Reason: shortness of breath or wheezing) Qty: 1 RF: 0 amitriptyline 10 mg tablet 10 mg PO DAILY RF: 0 verapamil 120 mg capsule,ext rel. pellets 24 hr 120 mg PO DAILY RF: 0 omeprazole 20 MG capsule,delayed release(DR/EC) 20 mg PO BID Qty: 60 RF: 11 epinephrine [EpiPen 2-Mark] 0.3 MG/0.3 ML auto-injector 0.3 mg INJ SEE INSTRUCTIONS PRNQty: 2 RF: 0 medroxyprogesterone 150 MG/1 ML suspension 150 mg IM [id number] Qty: 0 RF: 0 diclofenac sodium [Voltaren] 1 % gel 1 alex Topical QDAY Qty: 100 RF: 3 lamotrigine 150 MG tablet 300 mg PO HS Qty: 60 RF: 6 sertraline [Zoloft] 100 MG tablet 100 mg PO HS Qty: 90 RF: 1 levothyroxine 100 MCG tablet 0.1 mg PO QAM Qty: 90 RF: 3 levothyroxine 88 MCG tablet 88 mcg PO QDAY Qty: 90 RF: 3 naproxen 500 MG tablet 500 mg PO BID Qty: 60 RF: 1 potassium chloride 20 MEQ/15 ML liquid 20 meq PO Q DAY Qty: 150 RF: 3 ondansetron [Zofran ODT] 4 MG tablet,disintegrating 4 mg Sublingual Q6HP PRNQty: 30 RF: 2 clonazepam 1 MG tablet 1 mg PO BID AND HS Qty: 120 RF: 3 dextroamphetamine-amphetamine [Adderall] 15 MG tablet 15 mg PO QDAY Qty: 30 RF: 0 dextroamphetamine-amphetamine [Adderall XR] 15 MG capsule,extended release 24hr 15 mg PO QDAY Qty: 30 RF: 0 ranitidine HCl 150 MG tablet 150 mg PO BID Qty: 60 RF: 11 [MagDelay] Qty: 0 RF: 0 mupirocin 2 % ointment 0 alex Topical TID Qty: 22 RF: 0 carisoprodol 350 MG tablet 350 mg PO TIDP PRNQty: 90 RF: 0 acyclovir 400 MG tablet 400 mg PO BID Qty: 60 RF: 11 ondansetron [Zofran ODT] 4 mg tablet,disintegrating 4 mg PO Q6H Qty: 14 RF: 0 methocarbamol 750 mg tablet 750 mg PO QID PRN (Reason: muscle spasm) Qty: 30 RF: 0 sulfamethoxazole-trimethoprim 800-160 mg tablet 1 tab PO BID Qty: 14 RF: 0 diazepam [Valium] 5 mg tablet 5 mg PO BID-QID PRN (Reason: muscle spasm) Qty: 10 RF: 0 Referrals: Romain Nash [Primary Care Provider] -
[2019-05-23 03:39] VITALS: BP 143/95; PULSE 84; RESP 16; TEMP 37; BMI 33.0
[2019-05-23] MEDS: cephALEXin 250 MG PREPACK 1 BOTTLE MISC (04:32)
[2019-05-23 04:42] VITALS: BP 139/98; PULSE 89; RESP 18; O2SAT 100
[2019-05-23 04:50] LABS: RBC Urine None Seen (0-5/HPF)
[2019-05-23 05:31] LABS: Ictotest Urine Negative (Negative); Squamous Epithelial Cell Urine 1-5 /HPF (0-5/HPF); WBC Urine 0-1/HPF (0-5/HPF)
[2019-05-23 05:32] LABS: Bacteria Urine Few (2-10); Culture Indicated Urine Specimen Cultured; Mucus Urine 1+ (Negative)
== END 2019-05-23 04:47 | disposition home or self-care (01) ==
PROVIDERS: Emergency Provider Emergency Medicine; PCP Internal Medicine
DX: N39.0 Urinary tract infection, site not specified (principal)
CPT/HCPCS: 81003; 81015; 81025; 82962; 87077; 87086; 99282

== ENCOUNTER 2019-06-21 01:35 | Emergency (ER) | payer OTHER, MEDICAID, SELFPAY ==
[2019-06-21 01:41] VITALS: BP 141/85; PULSE 82; RESP 18; O2SAT 100; BMI 33.9
[2019-06-21 02:58] LABS: Bacteria Urine Few (2-10); Culture Indicated Urine Cult Not Indicated; RBC Urine 1-5/HPF (0-5/HPF); Squamous Epithelial Cell Urine 5-10 /HPF (0-5/HPF); WBC Urine 1-5/HPF (0-5/HPF)
--- NOTE | 2019-06-21 03:22 | ED.GENADULT ---
HPI - General Adult General Chief complaint: Abdominal Pain Stated complaint: kidney/abdominal pain, lightheaded Time Seen by Provider: 06/21/19 03:22 Source: patient Mode of arrival: Ambulatory Limitations: no limitations History of Present Illness HPI narrative: 34-year-old woman with multiple psychiatric diagnoses and currently homeless and living in her van presents feeling unwell for the last 2 days complaining of bilateral flank pain. She does not report fevers, nausea, vomiting, diarrhea, chest pain, dyspnea. Her affect is flat and she makes poor eye contact. Questions are answered tangentially. She notes that she was treated for a urinary tract infection in April however only took approximately a 3rd of the capsules before she lost the prescription bottle. Medical records indicate that this was actually Gardnerella on urine culture rather than a bacterial infection. Today she notes no dysuria, no vaginal discharge, no pelvic pain. Related Data Home Medications Medication Instructions Recorded Confirmed medroxyprogesterone 150 mg IM [id number] #0 02/17/17 12/25/17 [MagDelay] #0 08/23/17 12/25/17 amitriptyline 10 mg tablet 10 mg PO DAILY 12/25/17 12/25/17 verapamil 120 mg 24 hr 120 mg PO DAILY 12/25/17 12/25/17 capsule,extended release Previous Rx's Medication Instructions Recorded omeprazole 20 mg PO BID #60 cap 11/25/16 epinephrine [EpiPen 2-Mark] 0.3 mg INJ SEE INSTRUCTIONS PRN #2 02/03/17 kit diclofenac sodium [Voltaren] 1 alex TOPICAL QDAY #100 gm 06/05/17 lamotrigine 300 mg PO HS #60 tab 06/20/17 levothyroxine 0.1 mg PO QAM #90 tab 06/20/17 levothyroxine 88 mcg PO QDAY #90 tab 06/20/17 naproxen 500 mg PO BID #60 tab 06/20/17 sertraline [Zoloft] 100 mg PO HS #90 tab 06/20/17 ondansetron [Zofran ODT] 4 mg SUBLINGUAL Q6HP PRN #30 odt 07/25/17 potassium chloride 20 meq PO Q DAY #150 ml 07/25/17 clonazepam 1 mg PO BID AND HS #120 tab 08/17/17 dextroamphetamine-amphetamine 15 mg PO QDAY #30 cer 08/17/17 [Adderall XR] dextroamphetamine-amphetamine 15 mg PO QDAY #30 tab 08/17/17 [Adderall] ranitidine HCl 150 mg PO BID #60 tab 08/18/17 mupirocin 0 alex TOPICAL TID #22 gm 08/26/17 carisoprodol 350 mg PO TIDP PRN #90 tab 09/05/17 acyclovir 400 mg PO BID #60 tab 09/18/17 ondansetron [Zofran ODT] 4 mg PO Q6H #14 tab 10/30/17 albuterol sulfate 90 mcg/actuation 2 puff INHALATION Q4H PRN #1 each 11/02/17 breath activated powder inhaler fluconazole 150 mg tablet 150 mg PO ONCE #1 tab 11/02/17 methocarbamol 750 mg PO QID PRN #30 tab 01/11/18 sulfamethoxazole-trimethoprim 1 tab PO BID #14 tab 06/25/18 diazepam [Valium] 5 mg PO BID-QID PRN #10 tab 07/02/18 ondansetron 4 mg PO TID-QID PRN #10 tab 05/23/19 Allergies Allergy/AdvReac Type Severity Reaction Status Date / Time acetaminophen [ACETAMINOPHEN] Allergy Intermediate RASH WITH Verified 05/23/19 03:38 LARGE AMOUNTS doxycycline [DOXYCYCLINE] Allergy Intermediate VOMITING Verified 05/23/19 03:38 adhesive tape [ADHESIVE TAPE] Allergy Unknown Verified 05/23/19 03:38 bee venom protein (honey bee) Allergy Unknown Verified 05/23/19 03:38 [BEE VENOM PROTEIN (HONEY BEE)] Milk Containing Products Allergy Unknown Verified 05/23/19 03:38 [MILK CONTAINING PRODUCTS] Review of Systems Review of Systems Narrative: All systems reviewed and are unremarkable except as noted in HPI and below Patient History Medical History Bipolar 1 disorder (Acute) GERD (gastroesophageal reflux disease) (Acute) PTSD (post-traumatic stress disorder) (Acute) Rheumatoid arthritis (Acute) Thyroid cancer (Acute) Surgical History History of thyroidectomy History of tonsillectomy Status post laparoscopy Family History Grandfather Cancer Diabetes mellitus Heart disease Hypertension High cholesterol Grandmother Cancer Diabetes mellitus Hypertension High cholesterol Mental health problem Mother Age: 57 Diabetes mellitus Grandmother Cancer Social History Smoking Status: Current every day smoker alcohol intake: never Smoking Status: Current every day smoker alcohol intake frequency: 0-2 drinks per day Substance Use Type: does not use Exam Narrative Exam Narrative: General: Healthy appearing, in no acute distress. History is tangential speech is fluent. Well-nourished well-developed HEENT: Moist mucous membranes, normal sclera with reactive pupils, Neck: No cervical adenopathy, supple Respiratory: Lungs are clear to auscultation, no wheezing no rales no rhonchi. Full and symmetrical air movement Cardiac: Regular rate and rhythm no murmurs no bruits Abdomen: Soft nontender good bowel tones, no flank pain to palpation Skin: Warm and dry, no rashes Neurologic: Grossly neurologically intact with no obvious asymmetries or abnormalities Extremities: No trauma, well perfused Psych: Cooperative, appropriate insight and affect Initial Vital Signs Initial Vital Signs: Vital Signs Pulse Rate 82 06/21/19 01:41 Respiratory Rate 18 06/21/19 01:41 Blood Pressure 141/85 H 06/21/19 01:41 Pulse Oximetry 100 06/21/19 01:41 Course Orders Ordered: ED Orders 06/21/19 02:56 Urine Microscopic Stat 06/21/19 03:35 CBC Auto Diff [Complete Blood Count AUTO DIFF] Stat CMP [Comprehensive Metabolic Panel] Stat Discontinued Medications Ibuprofen (Advil) 400 mg PO NOW ONE Stop: 06/21/19 03:42 Last Admin: 06/21/19 03:49 Dose: 400 mg Documented by: HGYINKAN Vital Signs Vital signs: Vital Signs - 8 hr 06/21/19 01:41 06/21/19 04:43 Pulse Rate 82 73 Respiratory Rate 18 18 Blood Pressure 141/85 H Blood Pressure [Left Arm] 118/77 Pulse Oximetry 100 94 Medical Decision Making Medical Records Medical records reviewed: Yes I reviewed the patient's medical records. Lab Data Lab results reviewed: Yes I reviewed the patient's lab results. Result diagrams: 06/21/19 03:35 06/21/19 03:35 Labs: Lab Results 06/21/19 06/21/19 06/21/19 Range/Units 02:56 03:35 03:35 WBC 11.8 H (4.5-11.0) X10^3/uL RBC 4.61 (4.0-5.2) X10^6/uL Hgb 13.1 (12.0-16.0) g/dL Hct 39.5 (36-46) % MCV 85.6 (80-100) fL MCH 28.5 (26-34) PG MCHC 33.3 (30-36) % RDW 14.6 (11.6-14.8) % Plt Count 318 (150-400) X10^3/uL Neut % (Auto) 82.0 H (50-75) % Lymph % (Auto) 10.3 L (25-40) % [place] % (Auto) 6.5 (3-14) % Eos % (Auto) 0.8 L (2-4) % Baso % (Auto) 0.4 (0-2) % Neut # (Auto) 9700 H (8984-3826) /uL Lymph # (Auto) 1200 (0652-5505) /uL [place] # (Auto) 800 (0-900) /uL Eos # (Auto) 100 (0-450) /uL Baso # (Auto) 0 (0-100) /uL Sodium 137 (137-145) mmol/L Potassium 3.6 (3.4-5.1) mmol/L Chloride 99 (98-107) mmol/L Carbon Dioxide 32 (22-32) mmol/L BUN 13 (7-17) mg/dL Creatinine 0.90 (0.52-1.04) mg/dL Estimated GFR > 60.0 (>60) mL/min BUN/Creatinine Ratio 14.4 (6-22) Glucose 108 H (70-100) mg/dL Calcium 8.5 (8.4-10.2) mg/dL Total Bilirubin 0.4 (0.2-1.3) mg/dL AST 38 H (14-36) IU/L ALT 65 H (<35) IU/L Alkaline Phosphatase 89 (38-126) U/L Total Protein 7.1 (6.3-8.2) g/dL Albumin 3.9 (3.5-5.0) g/dL Globulin 3.2 (1.7-4.1) g/dL Albumin/Globulin Ratio 1.2 (1.0-2.8) Urine RBC 1-5/hpf (0-5/HPF) Urine WBC 1-5/hpf (0-5/HPF) Ur Squamous Epith Cells 5-10 /hpf H (0-5/HPF) Urine Bacteria Few (2-10) H (None) Ur Culture Indicated? Cult not indicated Point of Care Testing Test Results Negative Urine Dip Bedside Urine Glucose 100 mg/dl Bedside Urine Bilirubin + 1 Bedside Urine Ketone - Negative Urine Specific [place] 1.025 Bedside Urine Occult Blood +/- Bedside Urine pH 6 Bedside Urine Protein +/- 15 Bedside Urine Urobilinogen - Negative Bedside Urine Nitrite - Negative Bedside Urine Leukocytes +/- 15 Esterase Point of care testing: Point of Care Testing Test Results Negative Urine Dip Bedside Urine Glucose 100 mg/dl Bedside Urine Bilirubin + 1 Bedside Urine Ketone - Negative Urine Specific [place] 1.025 Bedside Urine Occult Blood +/- Bedside Urine pH 6 Bedside Urine Protein +/- 15 Bedside Urine Urobilinogen - Negative Bedside Urine Nitrite - Negative Bedside Urine Leukocytes +/- 15 Esterase MDM Narrative Medical decision making narrative: Lab studies are unremarkable. Urine does not look like it's infected. I do not suspect pyelonephritis nor renal stones. Acute low back strain secondary to sleeping in her car would be a more appropriate explanation for the discomfort that she is experiencing. I do believe it is safe for home discharge Discharge Plan Departure Patient Disposition: Home Clinical Impression: Muscle spasm of back, Homelessness Instructions: DI for Low Back Pain Activity Restrictions/Additional Instructions: I am. glad to let you know that your laboratory studies today or very normal. There is no indication of significant infection, bladder infection or kidney infection. I suspect that the pain you are experiencing in your back is musculoskeletal. You can use Naprosyn or Aleve that you have available to you to help with this pain. If you develop fevers or new symptoms it would be appropriate to have these further evaluated. I hope you are able to sort out your living situation soon. I wish you the best Prescriptions: No Action fluconazole 150 mg tablet 150 mg PO ONCE Qty: 1 RF: 0 albuterol sulfate 90 mcg/actuation aerosol powdr breath activated 2 puff INHALATION Q4H PRN (Reason: shortness of breath or wheezing) Qty: 1 RF: 0 amitriptyline 10 mg tablet 10 mg PO DAILY RF: 0 verapamil 120 mg capsule,ext rel. pellets 24 hr 120 mg PO DAILY RF: 0 omeprazole 20 MG capsule,delayed release(DR/EC) 20 mg PO BID Qty: 60 RF: 11 epinephrine [EpiPen 2-Mark] 0.3 MG/0.3 ML auto-injector 0.3 mg INJ SEE INSTRUCTIONS PRNQty: 2 RF: 0 medroxyprogesterone 150 MG/1 ML suspension 150 mg IM [id number] Qty: 0 RF: 0 diclofenac sodium [Voltaren] 1 % gel 1 alex Topical QDAY Qty: 100 RF: 3 lamotrigine 150 MG tablet 300 mg PO HS Qty: 60 RF: 6 sertraline [Zoloft] 100 MG tablet 100 mg PO HS Qty: 90 RF: 1 levothyroxine 100 MCG tablet 0.1 mg PO QAM Qty: 90 RF: 3 levothyroxine 88 MCG tablet 88 mcg PO QDAY Qty: 90 RF: 3 naproxen 500 MG tablet 500 mg PO BID Qty: 60 RF: 1 potassium chloride 20 MEQ/15 ML liquid 20 meq PO Q DAY Qty: 150 RF: 3 ondansetron [Zofran ODT] 4 MG tablet,disintegrating 4 mg Sublingual Q6HP PRNQty: 30 RF: 2 clonazepam 1 MG tablet 1 mg PO BID AND HS Qty: 120 RF: 3 dextroamphetamine-amphetamine [Adderall] 15 MG tablet 15 mg PO QDAY Qty: 30 RF: 0 dextroamphetamine-amphetamine [Adderall XR] 15 MG capsule,extended release 24hr 15 mg PO QDAY Qty: 30 RF: 0 ranitidine HCl 150 MG tablet 150 mg PO BID Qty: 60 RF: 11 [MagDelay] Qty: 0 RF: 0 mupirocin 2 % ointment 0 alex Topical TID Qty: 22 RF: 0 carisoprodol 350 MG tablet 350 mg PO TIDP PRNQty: 90 RF: 0 acyclovir 400 MG tablet 400 mg PO BID Qty: 60 RF: 11 ondansetron [Zofran ODT] 4 mg tablet,disintegrating 4 mg PO Q6H Qty: 14 RF: 0 methocarbamol 750 mg tablet 750 mg PO QID PRN (Reason: muscle spasm) Qty: 30 RF: 0 sulfamethoxazole-trimethoprim 800-160 mg tablet 1 tab PO BID Qty: 14 RF: 0 ondansetron 4 mg tablet,disintegrating 4 mg PO TID-QID PRN (Reason: nausea and vomiting) Qty: 10 RF: 0 diazepam [Valium] 5 mg tablet 5 mg PO BID-QID PRN (Reason: muscle spasm) Qty: 10 RF: 0 Referrals: Romain Nash [Primary Care Provider] -
[2019-06-21 03:46] LABS: Add Manual Diff / Slide Review NO; Basophils Absolute Auto 0 /uL (0-100); Basophils Percent Auto 0.4 % (0-2); Eosinophils Absolute Auto 100 /uL (0-450); Eosinophils Percent Auto 0.8 % (2-4); Hematocrit 39.5 % (36-46); Hemoglobin 13.1 g/dL (12.0-16.0); Lymphocytes Absolute Auto 1200 /uL (1100-4500); Lymphocytes Percent Auto 10.3 % (25-40); Mean Corpuscular HGB Conc 33.3 % (30-36); Mean Corpuscular Hemoglobin 28.5 PG (26-34); Mean Corpuscular Volume 85.6 fL (80-100); Monocytes Absolute Auto 800 /uL (0-900); Monocytes Percent Auto 6.5 % (3-14); Neutrophils Absolute Auto 9700 /uL (1500-7000); Platelet Count 318 X10^3/uL (150-400); Red Blood Cell Count 4.61 X10^6/uL (4.0-5.2); Red Cell Distribution Width 14.6 % (11.6-14.8); White Blood Cell Count 11.8 X10^3/uL (4.5-11.0)
[2019-06-21] MEDS: IBUPROFEN 400 MG TABLET PO (03:49)
[2019-06-21 03:53] LABS: Alanine Aminotransferase 65 IU/L (<35); Albumin 3.9 g/dL (3.5-5.0); Albumin Globulin Ratio 1.2 (1.0-2.8); Alkaline Phosphatase 89 U/L (38-126); Aspartate Aminotransferase 38 IU/L (14-36); BUN Creatinine Ratio 14.4 (6-22); Bilirubin Total 0.4 mg/dL (0.2-1.3); Blood Urea Nitrogen 13 mg/dL (7-17); Calcium 8.5 mg/dL (8.4-10.2); Carbon Dioxide 32 mmol/L (22-32); Chloride 99 mmol/L (98-107); Estimated Glomerular Filt Rate > 60.0 mL/min (>60); Globulin 3.2 g/dL (1.7-4.1); Glucose 108 mg/dL (70-100); HEMOLYSIS < 15 (0-50); Potassium 3.6 mmol/L (3.4-5.1); Sodium 137 mmol/L (137-145); Total Protein 7.1 g/dL (6.3-8.2)
[2019-06-21 04:43] VITALS: BP 118/77; PULSE 73; RESP 18; O2SAT 94
[2019-06-21 05:10] VITALS: BP 104/56; PULSE 65; RESP 15; O2SAT 99
== END 2019-06-21 05:11 | disposition home or self-care (01) ==
PROVIDERS: Emergency Provider Emergency Medicine; PCP Internal Medicine
DX: M62.830 Muscle spasm of back (principal); Z59.0 Homelessness
CPT/HCPCS: 36415; 80053; 81003; 81015; 81025; 85025; 99283; 99284

== ENCOUNTER 2019-06-26 07:48 | Emergency (ER) | payer OTHER, MEDICAID, SELFPAY ==
[2019-06-26 08:01] VITALS: BP 136/98; PULSE 87; RESP 16; TEMP 36.8; O2SAT 100
--- NOTE | 2019-06-26 08:17 | DI.RAD.S_ITS ---
PROCEDURE: XR SHOULDER LT MIN 2V INDICATIONS: shoulder pain TECHNIQUE: 3 views of the shoulder were acquired. COMPARISON: [facility], CR, XR CHEST 1V, 07/02/2018, 5:27. [facility], CR, XR CHEST 1V, 06/25/2018, 23:24. FINDINGS: Bones: No fractures or dislocations. No suspicious bony lesions. Visualized ribs appear intact. The clavicular head at the a.c. joint is mildly a irregular, chronic in appearance, potentially a manifestation of old trauma. Soft tissues: No suspicious soft tissue calcifications. IMPRESSION: No acute disease. Possible old trauma to the left clavicular head. Dictated by: Heber Upton M.D. on 06/26/2019 at 8:58 Approved by: Heber Upton M.D. on 06/26/2019 at 8:59
--- NOTE | 2019-06-26 08:17 | DI.RAD.S_ITS ---
PROCEDURE: XR CLAVICLE LT INDICATIONS: tender left clavicle TECHNIQUE: 2 views of the clavicle were acquired. COMPARISON: [facility], CR, XR CHEST 1V, 07/02/2018, 5:27. FINDINGS: Bones: No fractures or dislocations there is mild irregularity at the lateral border of the clavicular head, as it articulates at the a.c. joint, previously present. No suspicious bony lesions. Soft tissues: No suspicious soft tissue calcifications. IMPRESSION: No acute disease. Several surgical clips are incidentally noted at the neck bilaterally, perhaps reflecting prior thyroid surgery. The morphology of the clavicular head noted above has been previously present, and may reflect sequela of prior injury in that area. No new injury is found. Dictated by: Heber Upton M.D. on 06/26/2019 at 8:56 Approved by: Heber Upton M.D. on 06/26/2019 at 8:58
--- NOTE | 2019-06-26 08:35 | ED.EXTPRO ---
HPI - Extremity Problem General Chief complaint: Extremity Problem,Nontraumatic Stated complaint: amount of pain spasms in muscles left shoulder Time Seen by Provider: 06/26/19 08:08 Source: patient Mode of arrival: Ambulatory Limitations: no limitations History of Present Illness HPI Narrative: The patient is a 34-year-old female who states that she is having severe pain in her left shoulder that is 10/10 in nature. She denies any fall or injury. Her pain started yesterday while she was at a friend's sitting in recliner. He it started approximately 4:00 a.m.. She denies doing anything differently. She denies any fall or injury. No previous injury. She denies any previous rotator cuff injury. The she admits to smoking cigarettes but does not drink alcohol use any drugs. She has no history of diabetes mellitus or hypertension. She denies a headache numbness tingling loss of sensation. She has had no sore throat recently no trouble swallowing. She denies any chest pain cough shortness of breath difficulty in breathing racing of her heart. She has had no abdominal pain nausea vomiting no diarrhea incontinence of urine or stool. She has had no urinary symptoms. Related Data Home Medications Medication Instructions Recorded Confirmed medroxyprogesterone 150 mg IM Q0HSAUSE #0 02/17/17 12/25/17 [MagDelay] #0 08/23/17 12/25/17 amitriptyline 10 mg tablet 10 mg PO DAILY 12/25/17 12/25/17 verapamil 120 mg 24 hr 120 mg PO DAILY 12/25/17 12/25/17 capsule,extended release Previous Rx's Medication Instructions Recorded omeprazole 20 mg PO BID #60 cap 11/25/16 epinephrine [EpiPen 2-Mark] 0.3 mg INJ SEE INSTRUCTIONS PRN #2 02/03/17 kit diclofenac sodium [Voltaren] 1 alex TOPICAL QDAY #100 gm 06/05/17 lamotrigine 300 mg PO HS #60 tab 06/20/17 levothyroxine 0.1 mg PO QAM #90 tab 06/20/17 levothyroxine 88 mcg PO QDAY #90 tab 06/20/17 naproxen 500 mg PO BID #60 tab 06/20/17 sertraline [Zoloft] 100 mg PO HS #90 tab 06/20/17 ondansetron [Zofran ODT] 4 mg SUBLINGUAL Q6HP PRN #30 odt 07/25/17 potassium chloride 20 meq PO Q DAY #150 ml 07/25/17 clonazepam 1 mg PO BID AND HS #120 tab 08/17/17 dextroamphetamine-amphetamine 15 mg PO QDAY #30 cer 08/17/17 [Adderall XR] dextroamphetamine-amphetamine 15 mg PO QDAY #30 tab 08/17/17 [Adderall] ranitidine HCl 150 mg PO BID #60 tab 08/18/17 mupirocin 0 alex TOPICAL TID #22 gm 08/26/17 carisoprodol 350 mg PO TIDP PRN #90 tab 09/05/17 acyclovir 400 mg PO BID #60 tab 09/18/17 ondansetron [Zofran ODT] 4 mg PO Q6H #14 tab 10/30/17 albuterol sulfate 90 mcg/actuation 2 puff INHALATION Q4H PRN #1 each 11/02/17 breath activated powder inhaler fluconazole 150 mg tablet 150 mg PO ONCE #1 tab 11/02/17 methocarbamol 750 mg PO QID PRN #30 tab 01/11/18 sulfamethoxazole-trimethoprim 1 tab PO BID #14 tab 06/25/18 diazepam [Valium] 5 mg PO BID-QID PRN #10 tab 07/02/18 ondansetron 4 mg PO TID-QID PRN #10 tab 05/23/19 cyclobenzaprine 10 mg PO TID PRN #14 tab 06/26/19 naproxen 500 mg PO BID PRN #20 tab 06/26/19 Allergies Allergy/AdvReac Type Severity Reaction Status Date / Time acetaminophen [ACETAMINOPHEN] Allergy Intermediate RASH WITH Verified 05/23/19 03:38 LARGE AMOUNTS doxycycline [DOXYCYCLINE] Allergy Intermediate VOMITING Verified 05/23/19 03:38 adhesive tape [ADHESIVE TAPE] Allergy Unknown Verified 05/23/19 03:38 bee venom protein (honey bee) Allergy Unknown Verified 05/23/19 03:38 [BEE VENOM PROTEIN (HONEY BEE)] Milk Containing Products Allergy Unknown Verified 05/23/19 03:38 [MILK CONTAINING PRODUCTS] cyclobenzaprine AdvReac Migraine Verified 06/26/19 09:40 [From Flexeril] Review of Systems Review of Systems ROS Unobtainable: All systems reviewed & are unremarkable except as noted in HPI and below Patient History Medical History Bipolar 1 disorder (Acute) GERD (gastroesophageal reflux disease) (Acute) PTSD (post-traumatic stress disorder) (Acute) Rheumatoid arthritis (Acute) Thyroid cancer (Acute) Surgical History History of thyroidectomy History of tonsillectomy Status post laparoscopy Family History Grandfather Cancer Diabetes mellitus Heart disease Hypertension High cholesterol Grandmother Cancer Diabetes mellitus Hypertension High cholesterol Mental health problem Mother Age: 57 Diabetes mellitus Grandmother Cancer Social History Smoking Status: Current every day smoker alcohol intake: never Smoking Status: Current every day smoker alcohol intake frequency: 0-2 drinks per day Substance Use Type: does not use Exam Narrative Exam Narrative: PHYSICAL EXAM: CONSTITUTIONAL: Awake, Alert, Oriented, Coherent, NAD. Does not appear toxic or ill. The patient is wearing a sweatshirt and is not undressed for the exam. The patient was assisted in removing her sweatshirt. HEAD: AT/NC EENT: PERRL, FROM of eyes, no discharge, no nystagmus NECK: Supple, no obvious JVD, Trachea is midline without stridor, no palpable LN or masses. The patient has full range of motion of her neck to flexion extension right left lateral flexion and rotation. SPINE: No gross deformity, however the patient is jumpy were ever she was palpated on her cervical spine without any bony deformity or paraspinous muscle spasm. There was no tenderness to palpation over the lumbar or thoracic spine no costovertebral angle tenderness. THORAX: No chest wall tenderness or crepitus. LUNGS: Clear with symmetrical breath sounds without respiratory distress HEART: Normal heart tones, regular rhythm and rate without murmur. EXTREMITIES: The patient is diffusely tender to palpation over her left sternoclavicular joint, left clavicle, left acromioclavicular joint. The patient is tender to palpation over the head of the humerus and shoulder diffusely. There is no bruising erythema warmth noted. The patient resists abduction, flexion extension of her [place] shoulder. She is able to flex and extend her left elbow with supination of her forearm full range of motion of her wrist and fingers with good strength and sensation. Radial pulses 2+. When the patient is distracted and observed from a distance she moves her shoulder with partial abduction and partial external rotation when reaching for something. SKIN: No rash, bruising, petechiae or purpura. NEURO: Awake, alert, oriented, conversive, cranial nerves II-XII are symmetrical and normal, moves all 4 extremities and is ambulatory Initial Vital Signs Initial Vital Signs: Vital Signs Temperature 98.3 F 06/26/19 08:01 Pulse Rate 87 06/26/19 08:01 Respiratory Rate 16 06/26/19 08:01 Blood Pressure 136/98 H 06/26/19 08:01 Pulse Oximetry 100 06/26/19 08:01 Course Course Course Narrative: 0914 x-rays of the patient's shoulder and clavicle revealed no acute new injuries or fractures. The patient's ESR is 21. The patient will be discharged home on Indocin to follow-up with her primary care physician and physical therapy and referred to Orthopedic surgery for follow-up. Orders Ordered: Discontinued Medications Ketorolac Tromethamine (Toradol) 30 mg IM NOW ONE Stop: 06/26/19 08:16 Last Admin: 06/26/19 09:33 Dose: Not Given Documented by: DAR Ketorolac Tromethamine (Toradol) 30 mg IM NOW ONE Stop: 06/26/19 09:16 Last Admin: 06/26/19 09:34 Dose: Not Given Documented by: DAR Ketorolac Tromethamine (Toradol) 30 mg IV NOW ONE Stop: 06/26/19 09:31 Last Admin: 06/26/19 09:20 Dose: 30 mg Documented by: DAR Vital Signs Vital signs: Vital Signs - 8 hr 06/26/19 08:01 Temperature 98.3 F Pulse Rate 87 Respiratory Rate 16 Blood Pressure 136/98 H Pulse Oximetry 100 MDM - Extremity (Nontraumatic) Lab Data Result diagrams: 06/26/19 08:37 Labs: Lab Results 06/26/19 06/26/19 Range/Units 08:37 08:37 WBC 9.2 (4.5-11.0) X10^3/uL RBC 4.64 (4.0-5.2) X10^6/uL Hgb 13.4 (12.0-16.0) g/dL Hct 39.8 (36-46) % MCV 85.6 (80-100) fL MCH 28.8 (26-34) PG MCHC 33.6 (30-36) % RDW 14.4 (11.6-14.8) % Plt Count 354 (150-400) X10^3/uL Neut % (Auto) 73.0 (50-75) % Lymph % (Auto) 19.7 L (25-40) % [place] % (Auto) 4.4 (3-14) % Eos % (Auto) 2.0 (2-4) % Baso % (Auto) 0.9 (0-2) % Neut # (Auto) 6700 (1800-2071) /uL Lymph # (Auto) 1800 (9201-0925) /uL [place] # (Auto) 400 (0-900) /uL Eos # (Auto) 200 (0-450) /uL Baso # (Auto) 100 (0-100) /uL ESR 21 H (0-20) MM/HR Total Creatine Kinase 150 H (30-135) U/L C-Reactive Protein 1.1 H (<1.0) mg/dL Discharge Plan Departure Patient Disposition: Home Clinical Impression: Acute shoulder pain Qualifiers: Laterality: left Qualified Code(s): M25.512 - Pain in left shoulder Sprain of left shoulder Qualifiers: Encounter type: initial encounter Shoulder sprain type: unspecified sprain Qualified Code(s): S43.402A - Unspecified sprain of left shoulder joint, initial encounter Discharge Date/Time: 06/26/19 09:50 Instructions: DI for Rotator Cuff Injury, DI for Shoulder Sprain Activity Restrictions/Additional Instructions: wear sling as necessary for support. Follow-up with your primary care physician. We have referred you to Orthopedic surgery and physical therapy for range of motion evaluation and treatment. Take the Naprosyn for the pain and discomfort and Flexeril for muscle spasms and to relax the muscles. Apply cold compresses to the shoulder every 2-3 hours for 20-30 minutes for the next 48 hours then apply heat as needed. Return to the emergency department be having increased pain and discomfort. Follow up with Physical Therapy Prescriptions: New naproxen 500 mg tablet 500 mg PO BID PRN (Reason: pain) Qty: 20 RF: 0 cyclobenzaprine 10 mg tablet 10 mg PO TID PRN (Reason: muscle spasm) Qty: 14 RF: 0 No Action fluconazole 150 mg tablet 150 mg PO ONCE Qty: 1 RF: 0 albuterol sulfate 90 mcg/actuation aerosol powdr breath activated 2 puff INHALATION Q4H PRN (Reason: shortness of breath or wheezing) Qty: 1 RF: 0 amitriptyline 10 mg tablet 10 mg PO DAILY RF: 0 verapamil 120 mg capsule,ext rel. pellets 24 hr 120 mg PO DAILY RF: 0 omeprazole 20 MG capsule,delayed release(DR/EC) 20 mg PO BID Qty: 60 RF: 11 epinephrine [EpiPen 2-Mark] 0.3 MG/0.3 ML auto-injector 0.3 mg INJ SEE INSTRUCTIONS PRNQty: 2 RF: 0 medroxyprogesterone 150 MG/1 ML suspension 150 mg IM [id number] Qty: 0 RF: 0 diclofenac sodium [Voltaren] 1 % gel 1 alex Topical QDAY Qty: 100 RF: 3 lamotrigine 150 MG tablet 300 mg PO HS Qty: 60 RF: 6 sertraline [Zoloft] 100 MG tablet 100 mg PO HS Qty: 90 RF: 1 levothyroxine 100 MCG tablet 0.1 mg PO QAM Qty: 90 RF: 3 levothyroxine 88 MCG tablet 88 mcg PO QDAY Qty: 90 RF: 3 naproxen 500 MG tablet 500 mg PO BID Qty: 60 RF: 1 potassium chloride 20 MEQ/15 ML liquid 20 meq PO Q DAY Qty: 150 RF: 3 ondansetron [Zofran ODT] 4 MG tablet,disintegrating 4 mg Sublingual Q6HP PRNQty: 30 RF: 2 clonazepam 1 MG tablet 1 mg PO BID AND HS Qty: 120 RF: 3 dextroamphetamine-amphetamine [Adderall] 15 MG tablet 15 mg PO QDAY Qty: 30 RF: 0 dextroamphetamine-amphetamine [Adderall XR] 15 MG capsule,extended release 24hr 15 mg PO QDAY Qty: 30 RF: 0 ranitidine HCl 150 MG tablet 150 mg PO BID Qty: 60 RF: 11 [MagDelay] Qty: 0 RF: 0 mupirocin 2 % ointment 0 alex Topical TID Qty: 22 RF: 0 carisoprodol 350 MG tablet 350 mg PO TIDP PRNQty: 90 RF: 0 acyclovir 400 MG tablet 400 mg PO BID Qty: 60 RF: 11 ondansetron [Zofran ODT] 4 mg tablet,disintegrating 4 mg PO Q6H Qty: 14 RF: 0 methocarbamol 750 mg tablet 750 mg PO QID PRN (Reason: muscle spasm) Qty: 30 RF: 0 sulfamethoxazole-trimethoprim 800-160 mg tablet 1 tab PO BID Qty: 14 RF: 0 ondansetron 4 mg tablet,disintegrating 4 mg PO TID-QID PRN (Reason: nausea and vomiting) Qty: 10 RF: 0 diazepam [Valium] 5 mg tablet 5 mg PO BID-QID PRN (Reason: muscle spasm) Qty: 10 RF: 0 Referrals: Romain Nash [Primary Care Provider] - Krystian Rodriguez MD [Physician] -
[2019-06-26 08:49] LABS: Add Manual Diff / Slide Review NO; Basophils Absolute Auto 100 /uL (0-100); Basophils Percent Auto 0.9 % (0-2); Eosinophils Absolute Auto 200 /uL (0-450); Hematocrit 39.8 % (36-46); Hemoglobin 13.4 g/dL (12.0-16.0); Lymphocytes Absolute Auto 1800 /uL (1100-4500); Lymphocytes Percent Auto 19.7 % (25-40); Mean Corpuscular HGB Conc 33.6 % (30-36); Mean Corpuscular Hemoglobin 28.8 PG (26-34); Mean Corpuscular Volume 85.6 fL (80-100); Monocytes Absolute Auto 400 /uL (0-900); Monocytes Percent Auto 4.4 % (3-14); Neutrophils Absolute Auto 6700 /uL (1500-7000); Platelet Count 354 X10^3/uL (150-400); Red Blood Cell Count 4.64 X10^6/uL (4.0-5.2); Red Cell Distribution Width 14.4 % (11.6-14.8); White Blood Cell Count 9.2 X10^3/uL (4.5-11.0)
[2019-06-26 09:03] LABS: C-Reactive Protein Quant 1.1 mg/dL (<1.0); Creatine Kinase 150 U/L (30-135)
[2019-06-26 09:09] LABS: Erythrocyte Sedimentation Rate 21 MM/HR (0-20)
[2019-06-26] MEDS: KETOROLAC 60 MG/2 ML VIAL 30 MG IV (09:20)
[2019-06-26 09:41] VITALS: BP 133/84; PULSE 78; O2SAT 100
== END 2019-06-26 09:50 | disposition home or self-care (01) ==
PROVIDERS: Emergency Provider Emergency Medicine; PCP Internal Medicine
DX: S43.402A Unspecified sprain of left shoulder joint, initial encounter (principal); M25.512 Pain in left shoulder
CPT/HCPCS: 36415; 73000; 73030; 82550; 85025; 85651; 86140; 96374; 99284; J1885

== ENCOUNTER → 2019-07-09 12:21 | Outpatient (CLI) | payer OTHER, MEDICAID, SELFPAY | PROVIDERS: PCP Internal Medicine; Visit Provider Physician Assistant | DX: N30.01 Acute cystitis with hematuria (principal) | CPT/HCPCS: 87077; 87086; 87186 ==

== ENCOUNTER 2019-07-12 04:00 | Emergency (ER) | payer OTHER, MEDICAID, SELFPAY ==
--- NOTE | 2019-07-12 04:07 | ED_ITS ---
HPI - Female Genitourinary General Chief complaint: Urogenital-Female Stated complaint: UTI getting worse Time Seen by Provider: 07/12/19 04:01 Source: patient Mode of arrival: Ambulatory Limitations: no limitations History of Present Illness HPI Narrative: 34-year-old female daily smoker with known UTI presents with a chief complaint of ongoing sensation of dysuria and frequency though it is improved. She states she has been feeling hot at home but has not measured a fever. She has some vague back pain but denies any nausea, vomiting or other. She is currently on her menses. She was seen at the walk-in clinic 2 days ago and was diagnosed with the urinary tract infection, urine culture notes sensitivity to the Bactrim she was prescribed. She has only taken 3 doses thus far. She denies runny nose, sore throat or chest pain, cough or shortness of breath MD Complaint: dysuria and UTI Onset (ago): day(s) Location: suprapubic Quality: Aching Duration: constant Relieving factors: none Exacerbating factors: urination Urinary symptoms: Difficulty Urinating and Dysuria Associated symptoms: denies other symptoms Related Data Home Medications Medication Instructions Recorded Confirmed medroxyprogesterone 150 mg IM [id number] #0 02/17/17 07/09/19 [MagDelay] #0 08/23/17 07/09/19 amitriptyline 10 mg tablet 10 mg PO DAILY 12/25/17 07/09/19 verapamil 120 mg 24 hr 120 mg PO DAILY 12/25/17 07/09/19 capsule,extended release Previous Rx's Medication Instructions Recorded omeprazole 20 mg PO BID #60 cap 11/25/16 epinephrine [EpiPen 2-Mark] 0.3 mg INJ SEE INSTRUCTIONS PRN #2 02/03/17 kit diclofenac sodium [Voltaren] 1 alex TOPICAL QDAY #100 gm 06/05/17 lamotrigine 300 mg PO HS #60 tab 06/20/17 levothyroxine 0.1 mg PO QAM #90 tab 06/20/17 levothyroxine 88 mcg PO QDAY #90 tab 06/20/17 naproxen 500 mg PO BID #60 tab 06/20/17 sertraline [Zoloft] 100 mg PO HS #90 tab 06/20/17 ondansetron [Zofran ODT] 4 mg SUBLINGUAL Q6HP PRN #30 odt 07/25/17 potassium chloride 20 meq PO Q DAY #150 ml 07/25/17 clonazepam 1 mg PO BID AND HS #120 tab 08/17/17 dextroamphetamine-amphetamine 15 mg PO QDAY #30 cer 08/17/17 [Adderall XR] dextroamphetamine-amphetamine 15 mg PO QDAY #30 tab 08/17/17 [Adderall] ranitidine HCl 150 mg PO BID #60 tab 08/18/17 mupirocin 0 alex TOPICAL TID #22 gm 08/26/17 carisoprodol 350 mg PO TIDP PRN #90 tab 09/05/17 acyclovir 400 mg PO BID #60 tab 09/18/17 ondansetron [Zofran ODT] 4 mg PO Q6H #14 tab 10/30/17 albuterol sulfate 90 mcg/actuation 2 puff INHALATION Q4H PRN #1 each 11/02/17 breath activated powder inhaler fluconazole 150 mg tablet 150 mg PO ONCE #1 tab 11/02/17 methocarbamol 750 mg PO QID PRN #30 tab 01/11/18 sulfamethoxazole-trimethoprim 1 tab PO BID #14 tab 06/25/18 diazepam [Valium] 5 mg PO BID-QID PRN #10 tab 07/02/18 ondansetron 4 mg PO TID-QID PRN #10 tab 05/23/19 cyclobenzaprine 10 mg PO TID PRN #14 tab 06/26/19 naproxen 500 mg PO BID PRN #20 tab 06/26/19 fluconazole 150 mg tablet 150 mg PO ONCE #1 tab 07/09/19 phenazopyridine 100 mg tablet 100 mg PO TID PRN 0 Days #6 tab 07/09/19 sulfamethoxazole 800 1 tab PO BID #14 tab 07/09/19 mg-trimethoprim 160 mg tablet Allergies Allergy/AdvReac Type Severity Reaction Status Date / Time acetaminophen [ACETAMINOPHEN] Allergy Intermediate RASH WITH Verified 07/09/19 11:59 LARGE AMOUNTS doxycycline [DOXYCYCLINE] Allergy Intermediate VOMITING Verified 07/09/19 11:59 adhesive tape [ADHESIVE TAPE] Allergy Unknown Verified 07/09/19 11:59 bee venom protein (honey bee) Allergy Unknown Verified 07/09/19 11:59 [BEE VENOM PROTEIN (HONEY BEE)] Milk Containing Products Allergy Unknown Verified 07/09/19 11:59 [MILK CONTAINING PRODUCTS] cyclobenzaprine AdvReac Migraine Verified 07/09/19 11:59 [From Flexeril] Review of Systems Constitutional Constitutional: Denies chills, Denies fatigue, Denies fever(s), Denies frequent falls, Denies lethargy and Denies weakness Eyes Eyes: Denies change in vision, Denies eye discharge, Denies irritation and Denies loss of vision ENT Ears, Nose, Mouth, and Throat: Denies change in voice, Denies dizziness, Denies neck pain, Denies sore throat and Denies throat swelling Cardiovascular Cardiovascular: Denies chest pain, Denies irregular heart rhythm, Denies lightheadedness, Denies palpitations, Denies dyspnea, Denies dyspnea on exertion and Denies orthopnea Respiratory Respiratory: Denies cough, Denies dyspnea, Denies dyspnea on exertion and Denies wheezing Gastrointestinal Gastrointestinal: Denies abdominal pain, Denies change in bowel habits, Denies diarrhea, Denies nausea and Denies vomiting Genitourinary Genitourinary: Denies hematuria, Reports dysuria, Denies flank pain, Denies urinary incontinence and Reports urinary urgency Musculoskeletal Musculoskeletal: Denies back pain, Denies muscle weakness, Denies neck pain, Denies numbness and Denies tingling Integumentary/Breasts Skin/Breast: Denies pruritus, Denies erythema, Denies rash and Denies wounds Neurologic Neurologic: Denies behavioral changes, Denies confusion, Denies dizziness, Denies frequent falls, Denies loss of vision, Denies numbness, Denies tingling and Denies weakness Psychiatric Psychiatric: Denies anxiety, Denies behavioral changes, Denies confusion, Denies depression, Denies homicidal ideation and Denies suicidal ideation Endocrine Endocrine: Denies fatigue, Denies flushing and Denies palpitations Hematologic/Lymphatic Hematologic/Lymphatic: Denies easy bruising Allergic/Immunologic Allergic/Immunologic: Denies urticaria, Denies throat swelling and Denies wheezing Patient History Medical History Bipolar 1 disorder (Acute) GERD (gastroesophageal reflux disease) (Acute) PTSD (post-traumatic stress disorder) (Acute) Rheumatoid arthritis (Acute) Thyroid cancer (Acute) UTI (urinary tract infection) (Acute) Surgical History History of thyroidectomy History of tonsillectomy Status post laparoscopy Family History Grandfather Cancer Diabetes mellitus Heart disease Hypertension High cholesterol Grandmother Cancer Diabetes mellitus Hypertension High cholesterol Mental health problem Mother Age: 57 Diabetes mellitus Grandmother Cancer alcohol intake frequency: 0-2 drinks per day Substance Use Type: does not use Exam Narrative Exam Narrative: GEN: AOx3 and in mild distress EYES: Pupils are equal, round, and reactive to light and accommodation. Extraoccular muscles are intact bilaterally. There is no subconjunctival hemorrhage or exudate. CHEST: Lungs are clear to auscultation bilaterally and free of wheezes, rales, or rhonchi. Heart rate is regular rhythm, there are no murmurs, clicks, rubs, or gallops. There is no chest wall tenderness. ABD: Abdomen is soft and mild tenderness over suprapubic region. There is no guarding or rebound. Bowel sounds are normal in all 4 quadrants. There is no mass or organomegaly. EXT: Full painless ROM of all extremities with no loss of sensation or strength. SKIN: Warm, pink, and dry. No erythema or rash BACK: no CVA tenderness Course Orders Ordered: Discontinued Medications Ketorolac Tromethamine (Toradol) 60 mg IM NOW ONE Stop: 07/12/19 04:22 MDM - Female Genitourinary Lab Data Labs: Urine Dip Bedside Urine Glucose Negative Bedside Urine Bilirubin - Negative Bedside Urine Ketone - Negative Urine Specific [place] 1.010 Bedside Urine Occult Blood +++ Bedside Urine pH 7.0 Bedside Urine Protein - Negative Bedside Urine Urobilinogen - Negative Bedside Urine Nitrite - Negative Bedside Urine Leukocytes - Negative Esterase MDM Narrative Medical decision making narrative: Patient shows no signs sepsis or any systemic findings to suggest pyelonephritis. She has only had 3 doses of her antibiotic and urine dip is already greatly improved. Discharge Plan Departure Patient Disposition: Home Clinical Impression: UTI (urinary tract infection) Qualifiers: Urinary tract infection type: acute cystitis Hematuria presence: with hematuria Qualified Code(s): N30.01 - Acute cystitis with hematuria Instructions: DI for Urinary Tract Infection (UTI) Activity Restrictions/Additional Instructions: *You have been diagnosed with [ongoing symptoms of urinary tract infection. The urine results today would suggest that we are moving in the right direction.] *What to do: *Continue to take medications as directed *Follow up with your primary care provider in 2-3 days, call for an appointment. Let them know you were seen in the Emergency Department and that we ask that you be seen in follow up *Return to ER if you should have any new, worsening or concerning symptoms Prescriptions: No Action fluconazole 150 mg tablet 150 mg PO ONCE Qty: 1 RF: 0 albuterol sulfate 90 mcg/actuation aerosol powdr breath activated 2 puff INHALATION Q4H PRN (Reason: shortness of breath or wheezing) Qty: 1 RF: 0 amitriptyline 10 mg tablet 10 mg PO DAILY RF: 0 verapamil 120 mg capsule,ext rel. pellets 24 hr 120 mg PO DAILY RF: 0 sulfamethoxazole-trimethoprim [Bactrim DS] 800-160 mg tablet 1 tab PO BID Qty: 14 RF: 0 phenazopyridine [Pyridium] 100 mg tablet 100 mg PO TID PRN (Reason: pain) 0 Days Qty: 6 RF: 0 fluconazole [Diflucan] 150 mg tablet 150 mg PO ONCE Qty: 1 RF: 0 omeprazole 20 MG capsule,delayed release(DR/EC) 20 mg PO BID Qty: 60 RF: 11 epinephrine [EpiPen 2-Mark] 0.3 MG/0.3 ML auto-injector 0.3 mg INJ SEE INSTRUCTIONS PRNQty: 2 RF: 0 medroxyprogesterone 150 MG/1 ML suspension 150 mg IM [id number] Qty: 0 RF: 0 diclofenac sodium [Voltaren] 1 % gel 1 alex Topical QDAY Qty: 100 RF: 3 lamotrigine 150 MG tablet 300 mg PO HS Qty: 60 RF: 6 sertraline [Zoloft] 100 MG tablet 100 mg PO HS Qty: 90 RF: 1 levothyroxine 100 MCG tablet 0.1 mg PO QAM Qty: 90 RF: 3 levothyroxine 88 MCG tablet 88 mcg PO QDAY Qty: 90 RF: 3 naproxen 500 MG tablet 500 mg PO BID Qty: 60 RF: 1 potassium chloride 20 MEQ/15 ML liquid 20 meq PO Q DAY Qty: 150 RF: 3 ondansetron [Zofran ODT] 4 MG tablet,disintegrating 4 mg Sublingual Q6HP PRNQty: 30 RF: 2 clonazepam 1 MG tablet 1 mg PO BID AND HS Qty: 120 RF: 3 dextroamphetamine-amphetamine [Adderall] 15 MG tablet 15 mg PO QDAY Qty: 30 RF: 0 dextroamphetamine-amphetamine [Adderall XR] 15 MG capsule,extended release 24hr 15 mg PO QDAY Qty: 30 RF: 0 ranitidine HCl 150 MG tablet 150 mg PO BID Qty: 60 RF: 11 [MagDelay] Qty: 0 RF: 0 mupirocin 2 % ointment 0 alex Topical TID Qty: 22 RF: 0 carisoprodol 350 MG tablet 350 mg PO TIDP PRNQty: 90 RF: 0 acyclovir 400 MG tablet 400 mg PO BID Qty: 60 RF: 11 ondansetron [Zofran ODT] 4 mg tablet,disintegrating 4 mg PO Q6H Qty: 14 RF: 0 methocarbamol 750 mg tablet 750 mg PO QID PRN (Reason: muscle spasm) Qty: 30 RF: 0 sulfamethoxazole-trimethoprim 800-160 mg tablet 1 tab PO BID Qty: 14 RF: 0 ondansetron 4 mg tablet,disintegrating 4 mg PO TID-QID PRN (Reason: nausea and vomiting) Qty: 10 RF: 0 naproxen 500 mg tablet 500 mg PO BID PRN (Reason: pain) Qty: 20 RF: 0 cyclobenzaprine 10 mg tablet 10 mg PO TID PRN (Reason: muscle spasm) Qty: 14 RF: 0 diazepam [Valium] 5 mg tablet 5 mg PO BID-QID PRN (Reason: muscle spasm) Qty: 10 RF: 0 Referrals: Romain Nash [Primary Care Provider] -
[2019-07-12 04:22] VITALS: BP 156/103; PULSE 84; RESP 16; TEMP 36.8; O2SAT 100; BMI 33.9
[2019-07-12] MEDS: KETOROLAC 60 MG/2 ML VIAL IM (04:28)
[2019-07-12 04:42] VITALS: BP 133/79; PULSE 89; RESP 18; O2SAT 100
== END 2019-07-12 04:42 | disposition home or self-care (01) ==
PROVIDERS: Emergency Provider Emergency Medicine; PCP Internal Medicine
DX: N30.01 Acute cystitis with hematuria (principal)
CPT/HCPCS: 81003; 96372; 99283; J1885

== ENCOUNTER 2019-10-03 05:22 | Emergency (ER) | payer OTHER, MEDICAID, SELFPAY ==
--- NOTE | 2019-10-03 05:30 | DI.RAD.S_ITS ---
PROCEDURE: XR ELBOW LT MIN 3V INDICATIONS: fall with elbow pain TECHNIQUE: 3 views of the elbow were acquired. COMPARISON: None. FINDINGS: Bones: No fractures or dislocations. No suspicious bony lesions. Soft tissues: No elbow joint effusion. No suspicious soft tissue calcifications. IMPRESSION: No fracture. If the patient's symptoms do not improve recommend followup radiographs in 10 days to assess for healing sclerosis/occult injury. Dictated by: Carlos David M.D. on 10/03/2019 at 9:22 Approved by: Carlos David M.D. on 10/03/2019 at 9:29
--- NOTE | 2019-10-03 05:30 | ED.EXTPRO ---
HPI - Extremity Problem General Chief complaint: Extremity Injury, Upper Stated complaint: fell hard on left arm pain Time Seen by Provider: 10/03/19 05:25 Source: patient Mode of arrival: Ambulatory Limitations: no limitations History of Present Illness HPI Narrative: 34-year-old female smoker with noncontributory medical history presents with a chief complaint of left elbow pain. She states that she was walking with her hands in her pockets and tripped and fell onto her elbow and now has pain with motion and bruising. She denies any shoulder or wrist pain. She denies any other injury. She is not dizzy nor weak or lightheaded. She is otherwise well and free of complaint MD Complaint: extremity pain Onset (ago): hour(s) Pain Consistency: constant Location: left Quality: aching Radiation: none Relieving factors: nothing Exacerbating factors: range of motion Associated symptoms: denies other symptoms Related Data Home Medications Medication Instructions Recorded Confirmed medroxyprogesterone 150 mg IM [id number] #0 02/17/17 07/30/19 [MagDelay] #0 08/23/17 07/30/19 amitriptyline 10 mg tablet 10 mg PO DAILY 12/25/17 07/30/19 verapamil 120 mg 24 hr 120 mg PO DAILY 12/25/17 07/30/19 capsule,extended release Previous Rx's Medication Instructions Recorded omeprazole 20 mg PO BID #60 cap 11/25/16 epinephrine [EpiPen 2-Mark] 0.3 mg INJ SEE INSTRUCTIONS PRN #2 02/03/17 kit diclofenac sodium [Voltaren] 1 alex TOPICAL QDAY #100 gm 06/05/17 lamotrigine 300 mg PO HS #60 tab 06/20/17 levothyroxine 0.1 mg PO QAM #90 tab 06/20/17 levothyroxine 88 mcg PO QDAY #90 tab 06/20/17 naproxen 500 mg PO BID #60 tab 06/20/17 sertraline [Zoloft] 100 mg PO HS #90 tab 06/20/17 ondansetron [Zofran ODT] 4 mg SUBLINGUAL Q6HP PRN #30 odt 07/25/17 potassium chloride 20 meq PO Q DAY #150 ml 07/25/17 clonazepam 1 mg PO BID AND HS #120 tab 08/17/17 dextroamphetamine-amphetamine 15 mg PO QDAY #30 cer 08/17/17 [Adderall XR] dextroamphetamine-amphetamine 15 mg PO QDAY #30 tab 08/17/17 [Adderall] ranitidine HCl 150 mg PO BID #60 tab 08/18/17 mupirocin 0 alex TOPICAL TID #22 gm 08/26/17 carisoprodol 350 mg PO TIDP PRN #90 tab 09/05/17 acyclovir 400 mg PO BID #60 tab 09/18/17 ondansetron [Zofran ODT] 4 mg PO Q6H #14 tab 10/30/17 albuterol sulfate 90 mcg/actuation 2 puff INHALATION Q4H PRN #1 each 11/02/17 breath activated powder inhaler fluconazole 150 mg tablet 150 mg PO ONCE #1 tab 11/02/17 methocarbamol 750 mg PO QID PRN #30 tab 01/11/18 sulfamethoxazole-trimethoprim 1 tab PO BID #14 tab 06/25/18 diazepam [Valium] 5 mg PO BID-QID PRN #10 tab 07/02/18 ondansetron 4 mg PO TID-QID PRN #10 tab 05/23/19 cyclobenzaprine 10 mg PO TID PRN #14 tab 06/26/19 naproxen 500 mg PO BID PRN #20 tab 06/26/19 fluconazole 150 mg tablet 150 mg PO ONCE #1 tab 07/09/19 phenazopyridine 100 mg tablet 100 mg PO TID PRN 0 Days #6 tab 07/09/19 sulfamethoxazole 800 1 tab PO BID #14 tab 07/09/19 mg-trimethoprim 160 mg tablet triamcinolone acetonide 0.1 % 1 applic TOP TID #80 gram 07/30/19 topical cream Allergies Allergy/AdvReac Type Severity Reaction Status Date / Time acetaminophen [ACETAMINOPHEN] Allergy Intermediate RASH WITH Verified 07/30/19 12:02 LARGE AMOUNTS doxycycline [DOXYCYCLINE] Allergy Intermediate VOMITING Verified 07/30/19 12:02 adhesive tape [ADHESIVE TAPE] Allergy Unknown Verified 07/30/19 12:02 bee venom protein (honey bee) Allergy Unknown Verified 07/30/19 12:02 [BEE VENOM PROTEIN (HONEY BEE)] Milk Containing Products Allergy Unknown Verified 07/30/19 12:02 [MILK CONTAINING PRODUCTS] cyclobenzaprine AdvReac Migraine Verified 07/30/19 12:02 [From Flexeril] Review of Systems Constitutional Constitutional: Denies chills, Denies fatigue, Denies fever(s), Denies frequent falls, Denies lethargy and Denies weakness Eyes Eyes: Denies change in vision, Denies eye discharge, Denies irritation and Denies loss of vision ENT Ears, Nose, Mouth, and Throat: Denies change in voice, Denies dizziness, Denies neck pain, Denies sore throat and Denies throat swelling Cardiovascular Cardiovascular: Denies chest pain, Denies irregular heart rhythm, Denies lightheadedness, Denies palpitations, Denies dyspnea, Denies dyspnea on exertion and Denies orthopnea Respiratory Respiratory: Denies cough, Denies dyspnea, Denies dyspnea on exertion and Denies wheezing Gastrointestinal Gastrointestinal: Denies abdominal pain, Denies change in bowel habits, Denies diarrhea, Denies nausea and Denies vomiting Genitourinary Genitourinary: Denies hematuria, Denies flank pain, Denies urinary incontinence and Denies urinary urgency Musculoskeletal Musculoskeletal: Denies back pain, Reports joint swelling, Reports limited range of motion, Denies muscle weakness, Denies neck pain, Denies numbness and Denies tingling Integumentary/Breasts Skin/Breast: Denies pruritus, Denies erythema, Denies rash and Denies wounds Neurologic Neurologic: Denies behavioral changes, Denies confusion, Denies dizziness, Denies frequent falls, Denies loss of vision, Denies numbness, Denies tingling and Denies weakness Psychiatric Psychiatric: Denies anxiety, Denies behavioral changes, Denies confusion, Denies depression, Denies homicidal ideation and Denies suicidal ideation Endocrine Endocrine: Denies fatigue, Denies flushing and Denies palpitations Hematologic/Lymphatic Hematologic/Lymphatic: Denies easy bruising Allergic/Immunologic Allergic/Immunologic: Denies urticaria, Denies throat swelling and Denies wheezing Patient History Medical History Bipolar 1 disorder (Acute) GERD (gastroesophageal reflux disease) (Acute) PTSD (post-traumatic stress disorder) (Acute) Rheumatoid arthritis (Acute) Skin rash (Acute) Thyroid cancer (Acute) UTI (urinary tract infection) (Acute) Surgical History History of thyroidectomy History of tonsillectomy Status post laparoscopy Family History Grandfather Cancer Diabetes mellitus Heart disease Hypertension High cholesterol Grandmother Cancer Diabetes mellitus Hypertension High cholesterol Mental health problem Mother Age: 57 Diabetes mellitus Grandmother Cancer Social History Smoking Status: Current every day smoker alcohol intake: never Smoking Status: Current every day smoker alcohol intake frequency: 0-2 drinks per day Substance Use Type: does not use Exam Narrative Exam Narrative: GEN: AOx3 and in mild distress EYES: Pupils are equal, round, and reactive to light and accommodation. Extraoccular muscles are intact bilaterally. There is no subconjunctival hemorrhage or exudate. CHEST: Lungs are clear to auscultation bilaterally and free of wheezes, rales, or rhonchi. Heart rate is regular rhythm, there are no murmurs, clicks, rubs, or gallops. There is no chest wall tenderness. ABD: Abdomen is soft and nontender. There is no guarding or rebound. Bowel sounds are normal in all 4 quadrants. There is no mass or organomegaly. EXT: Full but painfull ROM of left elbow. Contusion laterally. Closed isolated and neurovascularly intact SKIN: Warm, pink, and dry. No erythema or rash Initial Vital Signs Initial Vital Signs: Vital Signs Temperature 97.0 F L 10/03/19 05:32 Pulse Rate 103 H 10/03/19 05:32 Respiratory Rate 17 10/03/19 05:32 Blood Pressure 141/97 H 10/03/19 05:32 Pulse Oximetry 98 10/03/19 05:32 Procedures Orthopedic Splinting/Casting Injury #1: Side: left Upper Extremity Injury Location: elbow Upper Extremity Immobilizer: sling/shoulder immobilizer Post splinting neuro exam: intact Post splinting vascular exam: intact Placed by: Nursing Course Orders Ordered: ED Orders 10/03/19 05:30 XR elbow LT min 3V Stat Vital Signs Vital signs: Vital Signs - 8 hr 10/03/19 05:32 Temperature 97.0 F L Pulse Rate 103 H Respiratory Rate 17 Blood Pressure 141/97 H Pulse Oximetry 98 Discharge Plan Departure Prescriptions: No Action fluconazole 150 mg tablet 150 mg PO ONCE Qty: 1 RF: 0 albuterol sulfate 90 mcg/actuation aerosol powdr breath activated 2 puff INHALATION Q4H PRN (Reason: shortness of breath or wheezing) Qty: 1 RF: 0 amitriptyline 10 mg tablet 10 mg PO DAILY RF: 0 verapamil 120 mg capsule,ext rel. pellets 24 hr 120 mg PO DAILY RF: 0 triamcinolone acetonide 0.1 % cream 1 applic TOP TID Qty: 80 RF: 0 sulfamethoxazole-trimethoprim [Bactrim DS] 800-160 mg tablet 1 tab PO BID Qty: 14 RF: 0 phenazopyridine [Pyridium] 100 mg tablet 100 mg PO TID PRN (Reason: pain) 0 Days Qty: 6 RF: 0 fluconazole [Diflucan] 150 mg tablet 150 mg PO ONCE Qty: 1 RF: 0 omeprazole 20 MG capsule,delayed release(DR/EC) 20 mg PO BID Qty: 60 RF: 11 epinephrine [EpiPen 2-Mark] 0.3 MG/0.3 ML auto-injector 0.3 mg INJ SEE INSTRUCTIONS PRNQty: 2 RF: 0 medroxyprogesterone 150 MG/1 ML suspension 150 mg IM [id number] Qty: 0 RF: 0 diclofenac sodium [Voltaren] 1 % gel 1 alex Topical QDAY Qty: 100 RF: 3 lamotrigine 150 MG tablet 300 mg PO HS Qty: 60 RF: 6 sertraline [Zoloft] 100 MG tablet 100 mg PO HS Qty: 90 RF: 1 levothyroxine 100 MCG tablet 0.1 mg PO QAM Qty: 90 RF: 3 levothyroxine 88 MCG tablet 88 mcg PO QDAY Qty: 90 RF: 3 naproxen 500 MG tablet 500 mg PO BID Qty: 60 RF: 1 potassium chloride 20 MEQ/15 ML liquid 20 meq PO Q DAY Qty: 150 RF: 3 ondansetron [Zofran ODT] 4 MG tablet,disintegrating 4 mg Sublingual Q6HP PRNQty: 30 RF: 2 clonazepam 1 MG tablet 1 mg PO BID AND HS Qty: 120 RF: 3 dextroamphetamine-amphetamine [Adderall] 15 MG tablet 15 mg PO QDAY Qty: 30 RF: 0 dextroamphetamine-amphetamine [Adderall XR] 15 MG capsule,extended release 24hr 15 mg PO QDAY Qty: 30 RF: 0 ranitidine HCl 150 MG tablet 150 mg PO BID Qty: 60 RF: 11 [MagDelay] Qty: 0 RF: 0 mupirocin 2 % ointment 0 alex Topical TID Qty: 22 RF: 0 carisoprodol 350 MG tablet 350 mg PO TIDP PRNQty: 90 RF: 0 acyclovir 400 MG tablet 400 mg PO BID Qty: 60 RF: 11 ondansetron [Zofran ODT] 4 mg tablet,disintegrating 4 mg PO Q6H Qty: 14 RF: 0 methocarbamol 750 mg tablet 750 mg PO QID PRN (Reason: muscle spasm) Qty: 30 RF: 0 sulfamethoxazole-trimethoprim 800-160 mg tablet 1 tab PO BID Qty: 14 RF: 0 ondansetron 4 mg tablet,disintegrating 4 mg PO TID-QID PRN (Reason: nausea and vomiting) Qty: 10 RF: 0 naproxen 500 mg tablet 500 mg PO BID PRN (Reason: pain) Qty: 20 RF: 0 cyclobenzaprine 10 mg tablet 10 mg PO TID PRN (Reason: muscle spasm) Qty: 14 RF: 0 diazepam [Valium] 5 mg tablet 5 mg PO BID-QID PRN (Reason: muscle spasm) Qty: 10 RF: 0
[2019-10-03 05:32] VITALS: BP 141/97; PULSE 103; RESP 17; TEMP 36.1; O2SAT 98; BMI 33.0
== END 2019-10-03 06:00 | disposition home or self-care (01) ==
PROVIDERS: Emergency Provider Emergency Medicine; PCP Internal Medicine
DX: S50.02XA Contusion of left elbow, initial encounter (principal); W19.XXXA Unspecified fall, initial encounter
CPT/HCPCS: 73080; 99282; 99283

== ENCOUNTER 2019-11-29 16:35 | Emergency (ER) | payer OTHER, MEDICAID, SELFPAY ==
[2019-11-29 16:35] VITALS: BP 150/101; PULSE 80; RESP 18; TEMP 36.6; O2SAT 100; BMI 32.3
--- NOTE | 2019-11-29 17:45 | ED.FEMALEGU ---
HPI - Female Genitourinary <Kera Dubon PA-C - Last Filed: 11/29/19 21:57> General Chief complaint: Urogenital-Female Stated complaint: states kidney infection Time Seen by Provider: 11/29/19 17:44 Source: patient Mode of arrival: Ambulatory Limitations: no limitations History of Present Illness HPI Narrative: This is a 34-year-old woman with a history of UTI, PTSD, depression, CAD, fibromyalgia, thyroidectomy, who presents to the emergency department saying ?I think I have a kidney infection?. She says that for the last few weeks on and off she has been having a burning sensation when she pees. She has also been having intermittent urgency and frequency. She complains of vague left-sided flank pain that comes and goes. But states she has chronic muscular pain and is in my muscles andis there all the time she says that she is always in pain and it is very difficult for her to distinguish if she has ?kidney pain? or something else. She says that she often gets kidney infections and usually has almost no symptoms she says she really can not tell when they are coming on because of her chronic pain. She says she thinks there is no chance that she could possibly be because she is on Depo for control although she says she has no idea when the last time she actually got this was. She endorses a feeling of pressure in her bladder that is uncomfortable but not painful. She says she has never had a kidney stone before. She also states that she has been living out of her truck since April. She says she has not worked since December of last summer. She says that she is sexually active with 1 partner and she is not worried about any sexually transmitted infections and does not desire to be tested for these today. When asked about her medication she states that she has a couple prescriptions I need to strip picker because I have not taken them for a few days this includes her thyroid medicine. She does not feel like she is having any trouble emptying her bladder. She denies vaginal discharge, pelvic pain, abdominal pain, chest pain, blood in her urine, nausea, vomiting, diarrhea, constipation or any other symptoms. MD Complaint: dysuria and UTI Onset (ago): week(s) (2) Location: suprapubic Female Urogenital Radiation: L Flank Severity: mild Severity scale (1-10): 2 Quality: Burning (with urination sometimes) and Dull Duration: intermittent Relieving factors: none Exacerbating factors: none Urinary symptoms: Dysuria and Flank Pain (vague flank pain) Vaginal discharge: other (none) Sexual activity: No Patient : No Date of Last Menstrual Period: 11/17/19 Associated symptoms: denies other symptoms Related Data Home Medications Medication Instructions Recorded Confirmed medroxyprogesterone 150 mg IM [id number] #0 02/17/17 07/30/19 [MagDelay] #0 08/23/17 07/30/19 amitriptyline 10 mg tablet 10 mg PO DAILY 12/25/17 07/30/19 verapamil 120 mg 24 hr 120 mg PO DAILY 12/25/17 07/30/19 capsule,extended release epinephrine [EpiPen 2-Mark] 0.3 mg INJ SEE INSTRUCTIONS PRN 11/29/19 11/29/19 Previous Rx's Medication Instructions Recorded omeprazole 20 mg PO BID #60 cap 11/25/16 diclofenac sodium [Voltaren] 1 alex TOPICAL QDAY #100 gm 06/05/17 lamotrigine 300 mg PO HS #60 tab 06/20/17 sertraline [Zoloft] 100 mg PO HS #90 tab 06/20/17 clonazepam 1 mg PO BID AND HS #120 tab 08/17/17 dextroamphetamine-amphetamine 15 mg PO QDAY #30 cer 08/17/17 [Adderall XR] dextroamphetamine-amphetamine 15 mg PO QDAY #30 tab 08/17/17 [Adderall] ranitidine HCl 150 mg PO BID #60 tab 08/18/17 mupirocin 0 alex TOPICAL TID #22 gm 08/26/17 carisoprodol 350 mg PO TIDP PRN #90 tab 09/05/17 acyclovir 400 mg PO BID #60 tab 09/18/17 methocarbamol 750 mg PO QID PRN #30 tab 01/11/18 diazepam [Valium] 5 mg PO BID-QID PRN #10 tab 07/02/18 cyclobenzaprine 10 mg PO TID PRN #14 tab 06/26/19 levothyroxine 175 mcg PO DAILY #30 cap MDD 175mcg 11/29/19 Allergies Allergy/AdvReac Type Severity Reaction Status Date / Time acetaminophen [ACETAMINOPHEN] Allergy Intermediate RASH WITH Verified 07/30/19 12:02 LARGE AMOUNTS doxycycline [DOXYCYCLINE] Allergy Intermediate VOMITING Verified 07/30/19 12:02 adhesive tape [ADHESIVE TAPE] Allergy Unknown Verified 07/30/19 12:02 bee venom protein (honey bee) Allergy Unknown Verified 07/30/19 12:02 [BEE VENOM PROTEIN (HONEY BEE)] Milk Containing Products Allergy Unknown Verified 07/30/19 12:02 [MILK CONTAINING PRODUCTS] cyclobenzaprine AdvReac Migraine Verified 07/30/19 12:02 [From Flexeril] Review of Systems <Kera Dubon PA-C - Last Filed: 11/29/19 21:57> Review of Systems Narrative: GENERAL: Denies chills, fatigue, malaise, fever, sweats. HEENT: Denies sinus pain, ear pain, sore throat, difficulty swallowing, dizziness. RESPIRATORY: Denies dyspnea, cough, wheezing, hemoptysis, sputum. CARDIOVASCULAR: Denies chest pain, palpitations, orthopnea, edema, GASTROINTESTINAL: Denies nausea, vomiting, abdominal pain, diarrhea, constipation, melena. : Positive for dysuria, frequency, negative for incontinence, hematuria, urinary retention. MUSCULOSKELETAL: Positive for chronic generalized muscle pain; denies weakness, joint pain, or bony pain SKIN: Denies rash, skin lesions, or other NEUROLOGIC: Denies weakness, headache, numbness, change in speech, confusion, seizures, incoordination. PSYCHIATRIC: No concerning psychosocial issues. 12 point review of systems is negative except for those stated above Patient History <Kera Dubon PA-C - Last Filed: 11/29/19 21:57> Medical History (Updated 11/29/19 @ 21:32 by Kera Dubon PA-C) Bipolar 1 disorder (Acute) GERD (gastroesophageal reflux disease) (Acute) PTSD (post-traumatic stress disorder) (Acute) Rheumatoid arthritis (Acute) Skin rash (Acute) Thyroid cancer (Acute) UTI (urinary tract infection) (Acute) Surgical History History of thyroidectomy History of tonsillectomy Status post laparoscopy Family History Grandfather Cancer Diabetes mellitus Heart disease Hypertension High cholesterol Grandmother Cancer Diabetes mellitus Hypertension High cholesterol Mental health problem Mother Age: 57 Diabetes mellitus Grandmother Cancer alcohol intake frequency: 0-2 drinks per day Substance Use Type: does not use Exam <Kera Dubon PA-C - Last Filed: 11/29/19 21:57> Narrative Exam Narrative: GENERAL: 34 year old patient appears stated age. Well-nourished, obese patient, in mild distress, lying on her side on the ED exam bed reclining and resting. HEAD: Atraumatic. Normocephalic. EYES: Pupils equal round and reactive. Extraocular motions intact. No scleral icterus. No injection or drainage. ENT: Nose without bleeding, purulent drainage. Throat without erythema, tonsillar hypertrophy or exudate. Airway patent. NECK: Trachea midline. Non tender CARDIOVASCULAR: Regular rate and rhythm without murmurs, gallops, or rubs. RESPIRATORY: Clear to auscultation. Breath sounds equal bilaterally. No wheezes, rales, or rhonchi. GASTROINTESTINAL: Abdomen soft, non-tender, nondistended, . EXTREMITIES: No edema or joint tenderness. BACK: Nontender without deformity or crepitance. She has very slight tenderness of the left flank, but no CVA tenderness with percussion. NEURO: AOx3. SKIN: No rash or erythema of visible areas Initial Vital Signs Initial Vital Signs: Vital Signs Temperature 97.9 F 11/29/19 16:35 Pulse Rate 80 11/29/19 16:35 Respiratory Rate 18 11/29/19 16:35 Blood Pressure 150/101 H 11/29/19 16:35 Pulse Oximetry 100 11/29/19 16:35 <Leo Keyes DO - Last Filed: 11/29/19 22:05> Initial Vital Signs Initial Vital Signs: Vital Signs Temperature 97.9 F 11/29/19 16:35 Pulse Rate 80 11/29/19 16:35 Respiratory Rate 18 11/29/19 16:35 Blood Pressure 150/101 H 11/29/19 16:35 Pulse Oximetry 100 11/29/19 16:35 Scores <Kera Dubon PA-C - Last Filed: 11/29/19 21:57> GCS Sarita coma scale eye opening: Spontaneous Sariat coma scale verbal response: Orientated Sarita coma scale motor response: Obey commands Sarita coma scale total score: 15 Course <Kera Dubon PA-C - Last Filed: 11/29/19 21:57> Orders Ordered: ED Orders 11/29/19 19:10 Complete Blood Count AUTO DIFF Stat Comprehensive Metabolic Panel Stat Lactate (Lactic Acid) Stat Lipase Stat Thyroid Stimulating Hormone Stat 11/29/19 21:43 Consult to [facility] Routine Vital Signs Vital signs: Vital Signs - 8 hr 11/29/19 16:35 11/29/19 20:27 11/29/19 21:49 Temperature 97.9 F Pulse Rate 80 71 72 Respiratory Rate 18 18 17 Blood Pressure 150/101 H 130/92 H 122/89 Pulse Oximetry 100 97 98 11/29/19 21:59 Temperature Pulse Rate 84 Respiratory Rate 16 Blood Pressure 154/98 H Pulse Oximetry 100 <Leo Keyes DO - Last Filed: 11/29/19 22:05> Orders Ordered: ED Orders 11/29/19 19:10 Complete Blood Count AUTO DIFF Stat Comprehensive Metabolic Panel Stat Lactate (Lactic Acid) Stat Lipase Stat Thyroid Stimulating Hormone Stat 11/29/19 21:43 Consult to [facility] Routine Vital Signs Vital signs: Vital Signs - 8 hr 11/29/19 16:35 11/29/19 20:27 11/29/19 21:49 Temperature 97.9 F Pulse Rate 80 71 72 Respiratory Rate 18 18 17 Blood Pressure 150/101 H 130/92 H 122/89 Pulse Oximetry 100 97 98 11/29/19 21:59 Temperature Pulse Rate 84 Respiratory Rate 16 Blood Pressure 154/98 H Pulse Oximetry 100 MDM - Female Genitourinary <Kera Dubon PA-C - Last Filed: 11/29/19 21:57> Differential Diagnosis Differential diagnosis: Likely urinary tract infection, bacterial vaginosis, vaginitis, cystitis and other (STI) Medical Records Attestation: I reviewed the patient's medical records. Lab Data Attestation: I reviewed the patient's lab results. Result diagrams: 11/29/19 19:10 11/29/19 19:10 Labs: Lab Results 11/29/19 11/29/19 11/29/19 Range/Units 19:10 19:10 19:10 WBC 7.3 (4.5-11.0) X10^3/uL RBC 4.53 (4.0-5.2) X10^6/uL Hgb 12.9 (12.0-16.0) g/dL Hct 38.5 (36-46) % MCV 84.9 (80-100) fL MCH 28.5 (26-34) PG MCHC 33.5 (30-36) % RDW 13.7 (11.6-14.8) % Plt Count 285 (150-400) X10^3/uL Neut % (Auto) 64.4 (50-75) % Lymph % (Auto) 23.8 L (25-40) % [place] % (Auto) 7.5 (3-14) % Eos % (Auto) 3.0 (2-4) % Baso % (Auto) 1.3 (0-2) % Neut # (Auto) 4700 (8047-2168) /uL Lymph # (Auto) 1700 (1369-4115) /uL [place] # (Auto) 500 (0-900) /uL Eos # (Auto) 200 (0-450) /uL Baso # (Auto) 100 (0-100) /uL Sodium 135 L (137-145) mmol/L Potassium 3.7 (3.4-5.1) mmol/L Chloride 99 (98-107) mmol/L Carbon Dioxide 31 (22-32) mmol/L BUN 13 (7-17) mg/dL Creatinine 0.80 (0.52-1.04) mg/dL Estimated GFR > 60.0 (>60) mL/min BUN/Creatinine Ratio 16.3 (6-22) Glucose 92 (70-100) mg/dL Lactate 0.6 L (0.7-2.1) mmol/L Calcium 9.5 (8.4-10.2) mg/dL Total Bilirubin 0.4 (0.2-1.3) mg/dL AST 27 (14-36) IU/L ALT 23 (<35) IU/L Alkaline Phosphatase 74 (38-126) U/L Total Protein 7.8 (6.3-8.2) g/dL Albumin 4.4 (3.5-5.0) g/dL Globulin 3.4 (1.7-4.1) g/dL Albumin/Globulin Ratio 1.3 (1.0-2.8) Lipase 73 (23-300) U/L TSH (0.47-4.68) uIU/mL 11/29/19 Range/Units 19:10 WBC (4.5-11.0) X10^3/uL RBC (4.0-5.2) X10^6/uL Hgb (12.0-16.0) g/dL Hct (36-46) % MCV (80-100) fL MCH (26-34) PG MCHC (30-36) % RDW (11.6-14.8) % Plt Count (150-400) X10^3/uL Neut % (Auto) (50-75) % Lymph % (Auto) (25-40) % [place] % (Auto) (3-14) % Eos % (Auto) (2-4) % Baso % (Auto) (0-2) % Neut # (Auto) (7210-0616) /uL Lymph # (Auto) (1370-8401) /uL [place] # (Auto) (0-900) /uL Eos # (Auto) (0-450) /uL Baso # (Auto) (0-100) /uL Sodium (137-145) mmol/L Potassium (3.4-5.1) mmol/L Chloride (98-107) mmol/L Carbon Dioxide (22-32) mmol/L BUN (7-17) mg/dL Creatinine (0.52-1.04) mg/dL Estimated GFR (>60) mL/min BUN/Creatinine Ratio (6-22) Glucose (70-100) mg/dL Lactate (0.7-2.1) mmol/L Calcium (8.4-10.2) mg/dL Total Bilirubin (0.2-1.3) mg/dL AST (14-36) IU/L ALT (<35) IU/L Alkaline Phosphatase (38-126) U/L Total Protein (6.3-8.2) g/dL Albumin (3.5-5.0) g/dL Globulin (1.7-4.1) g/dL Albumin/Globulin Ratio (1.0-2.8) Lipase (23-300) U/L TSH 118 H (0.47-4.68) uIU/mL Point of Care Testing Test Results Negative Urine Dip Bedside Urine Glucose Negative Bedside Urine Bilirubin - Negative Bedside Urine Ketone - Negative Urine Specific [place] 1.015 Bedside Urine Occult Blood +/- Bedside Urine pH 7.0 Bedside Urine Protein - Negative Bedside Urine Urobilinogen - Negative Bedside Urine Nitrite - Negative Bedside Urine Leukocytes - Negative Esterase MDM Narrative Medical decision making narrative: This is a 34-year-old female with a history fibromyalgia, UTI, depression, anxiety, PTSD and bipolar I who presents the emergency department complaining of I think I have a kidney infection. Differential diagnoses considered include: UTI, cystitis, pyelonephritis, appendicitis, musculoskeletal pain, kidney stone, ureterolithiasis Urine dip was unremarkable, exam is also grossly unremarkable except for some very slight left flank tenderness. Patient states she has not taken her thyroid medicine for possibly weeks, she was seen in the emergency department in [place] in day wrote her a new prescription which is waiting here at the pharmacy locally. She says she has not picked this up mostly because she keeps forgetting to do so. We made a plan for someone to call her Monday morning and remind her to go and strip picker her prescription. She says that her insurance will cover it and is not issue of money she simply is very forgetful because of her ADHD. We discussed at length the importance of taking her thyroid medication regularly and the fact that this will likely improve some of the symptoms that she has been having and make her feel better. Patient stated that she has been taking 188 mcg a day once daily which does not make great sense considering this is not consistent with the dosing options available, last prescription that I see was for 88 mcg QD. Patient states she has a prescription waiting for her at the pharmacy here at [facility], however I did go ahead and prescribe 175 mcg dly in the event that her other prescription is not at the pharmacy as it has been at least a few weeks since that was prescribed. I advised her of this and encouraged her to take the previous prescription if it is available and leave mine and work to establish care with a PCP for further management. Although We also discussed the importance of establishing care with a primary care physician and she stated that she has not really had anyone consistent for the past year and agrees that she needs to do this. Spoke with the deputy united [place] marshal and establish that the patient's PCP no longer practices at the clinic where she was getting her care. She was provided with information on [facility] resources. Emergency return precautions were provided and all questions were answered. <Leo Keyes DO - Last Filed: 11/29/19 22:05> Lab Data Labs: Lab Results 11/29/19 11/29/19 11/29/19 Range/Units 19:10 19:10 19:10 WBC 7.3 (4.5-11.0) X10^3/uL RBC 4.53 (4.0-5.2) X10^6/uL Hgb 12.9 (12.0-16.0) g/dL Hct 38.5 (36-46) % MCV 84.9 (80-100) fL MCH 28.5 (26-34) PG MCHC 33.5 (30-36) % RDW 13.7 (11.6-14.8) % Plt Count 285 (150-400) X10^3/uL Neut % (Auto) 64.4 (50-75) % Lymph % (Auto) 23.8 L (25-40) % [place] % (Auto) 7.5 (3-14) % Eos % (Auto) 3.0 (2-4) % Baso % (Auto) 1.3 (0-2) % Neut # (Auto) 4700 (9903-4282) /uL Lymph # (Auto) 1700 (0148-5584) /uL [place] # (Auto) 500 (0-900) /uL Eos # (Auto) 200 (0-450) /uL Baso # (Auto) 100 (0-100) /uL Sodium 135 L (137-145) mmol/L Potassium 3.7 (3.4-5.1) mmol/L Chloride 99 (98-107) mmol/L Carbon Dioxide 31 (22-32) mmol/L BUN 13 (7-17) mg/dL Creatinine 0.80 (0.52-1.04) mg/dL Estimated GFR > 60.0 (>60) mL/min BUN/Creatinine Ratio 16.3 (6-22) Glucose 92 (70-100) mg/dL Lactate 0.6 L (0.7-2.1) mmol/L Calcium 9.5 (8.4-10.2) mg/dL Total Bilirubin 0.4 (0.2-1.3) mg/dL AST 27 (14-36) IU/L ALT 23 (<35) IU/L Alkaline Phosphatase 74 (38-126) U/L Total Protein 7.8 (6.3-8.2) g/dL Albumin 4.4 (3.5-5.0) g/dL Globulin 3.4 (1.7-4.1) g/dL Albumin/Globulin Ratio 1.3 (1.0-2.8) Lipase 73 (23-300) U/L TSH (0.47-4.68) uIU/mL 11/29/19 Range/Units 19:10 WBC (4.5-11.0) X10^3/uL RBC (4.0-5.2) X10^6/uL Hgb (12.0-16.0) g/dL Hct (36-46) % MCV (80-100) fL MCH (26-34) PG MCHC (30-36) % RDW (11.6-14.8) % Plt Count (150-400) X10^3/uL Neut % (Auto) (50-75) % Lymph % (Auto) (25-40) % [place] % (Auto) (3-14) % Eos % (Auto) (2-4) % Baso % (Auto) (0-2) % Neut # (Auto) (3379-3087) /uL Lymph # (Auto) (6126-9501) /uL [place] # (Auto) (0-900) /uL Eos # (Auto) (0-450) /uL Baso # (Auto) (0-100) /uL Sodium (137-145) mmol/L Potassium (3.4-5.1) mmol/L Chloride (98-107) mmol/L Carbon Dioxide (22-32) mmol/L BUN (7-17) mg/dL Creatinine (0.52-1.04) mg/dL Estimated GFR (>60) mL/min BUN/Creatinine Ratio (6-22) Glucose (70-100) mg/dL Lactate (0.7-2.1) mmol/L Calcium (8.4-10.2) mg/dL Total Bilirubin (0.2-1.3) mg/dL AST (14-36) IU/L ALT (<35) IU/L Alkaline Phosphatase (38-126) U/L Total Protein (6.3-8.2) g/dL Albumin (3.5-5.0) g/dL Globulin (1.7-4.1) g/dL Albumin/Globulin Ratio (1.0-2.8) Lipase (23-300) U/L TSH 118 H (0.47-4.68) uIU/mL Point of Care Testing Test Results Negative Urine Dip Bedside Urine Glucose Negative Bedside Urine Bilirubin - Negative Bedside Urine Ketone - Negative Urine Specific [place] 1.015 Bedside Urine Occult Blood +/- Bedside Urine pH 7.0 Bedside Urine Protein - Negative Bedside Urine Urobilinogen - Negative Bedside Urine Nitrite - Negative Bedside Urine Leukocytes - Negative Esterase Discharge Plan Departure Patient Disposition: Home Clinical Impression: Hypothyroidism (acquired), Generalized muscle ache, Chronic flank pain Discharge Date/Time: 11/29/19 22:00 Instructions: DI for Hypothyroidism Activity Restrictions/Additional Instructions: Thank you for letting us to be part of your care in the emergency department today. There is no evidence of an emergent or life threatening illness at this time, but follow up with your doctor in 1-2 days is recommended nonetheless to continue to rule out serious underlying causes of your symptoms. Please call the office for an appointment. Please return to the Emergency Department for any worsening or persistent symptoms. Please take medications as directed. We did not find anything that suggests that you have a kidney infection currently, however please monitor your symptoms,and seek medical care if you have new or worsening symptoms. I have included a referral to the [facility] resources Center as we discussed and I also gave you a card with their information so that you can work with them to establish a new primary care provider if needed. As we discussed it is very important that you take your thyroid medicine, please do try to put a reminder in your phone to pick it up on Monday morning when the pharmacy is open and we will also work to have someone give you a phone call to remind you to pick it up. Prescriptions: New levothyroxine 175 mcg capsule 175 mcg PO DAILY MDD 175mcg Qty: 30 RF: 0 Discontinued levothyroxine 88 MCG tablet 88 mcg PO QDAY Qty: 90 RF: 3 No Action amitriptyline 10 mg tablet 10 mg PO DAILY RF: 0 verapamil 120 mg capsule,ext rel. pellets 24 hr 120 mg PO DAILY RF: 0 omeprazole 20 MG capsule,delayed release(DR/EC) 20 mg PO BID Qty: 60 RF: 11 medroxyprogesterone 150 MG/1 ML suspension 150 mg IM [id number] Qty: 0 RF: 0 diclofenac sodium [Voltaren] 1 % gel 1 alex Topical QDAY Qty: 100 RF: 3 lamotrigine 150 MG tablet 300 mg PO HS Qty: 60 RF: 6 sertraline [Zoloft] 100 MG tablet 100 mg PO HS Qty: 90 RF: 1 clonazepam 1 MG tablet 1 mg PO BID AND HS Qty: 120 RF: 3 dextroamphetamine-amphetamine [Adderall] 15 MG tablet 15 mg PO QDAY Qty: 30 RF: 0 dextroamphetamine-amphetamine [Adderall XR] 15 MG capsule,extended release 24hr 15 mg PO QDAY Qty: 30 RF: 0 ranitidine HCl 150 MG tablet 150 mg PO BID Qty: 60 RF: 11 [MagDelay] Qty: 0 RF: 0 mupirocin 2 % ointment 0 alex Topical TID Qty: 22 RF: 0 carisoprodol 350 MG tablet 350 mg PO TIDP PRNQty: 90 RF: 0 acyclovir 400 MG tablet 400 mg PO BID Qty: 60 RF: 11 methocarbamol 750 mg tablet 750 mg PO QID PRN (Reason: muscle spasm) Qty: 30 RF: 0 cyclobenzaprine 10 mg tablet 10 mg PO TID PRN (Reason: muscle spasm) Qty: 14 RF: 0 diazepam [Valium] 5 mg tablet 5 mg PO BID-QID PRN (Reason: muscle spasm) Qty: 10 RF: 0 epinephrine [EpiPen 2-Mark] 0.3 MG/0.3 ML auto-injector 0.3 mg INJ SEE INSTRUCTIONS PRN (Reason: Allergic Reaction) RF: 0 Referrals: [facility] [Outside] Romain Nash [Primary Care Provider] - <Leo Keyes DO - Last Filed: 11/29/19 22:05> Cosign ED Attending Cossumiature Attestation: Dr Keyse Co-Sign Statement: I was available for consultation during this patient's emergency department visit. This chart is signed by myself for administrative purposes only. I did not have direct contact with this patient during this visit. They were seen independently by the APC.
--- NOTE | 2019-11-29 18:02 | PC.NURSE ---
Patient states that she has constant muscle pain but cannot point to a direct location to her pain. She says that her left flank is painful. Upon palpation by Kera Dubon she reports pain throughout her abdomen. She reports pain upon palpation in her left upper quadrant and also right upper quadrant.
--- NOTE | 2019-11-29 18:54 | PC.NURSE ---
Attempted to draw labs x 2. 1st attempt pt screamed STOP- IT TAN! and I discontinued attempt. Unsuccessful 2nd attempt. Lab in to draw.
[2019-11-29 19:21] LABS: Add Manual Diff / Slide Review NO; Basophils Absolute Auto 100 /uL (0-100); Basophils Percent Auto 1.3 % (0-2); Eosinophils Absolute Auto 200 /uL (0-450); Hematocrit 38.5 % (36-46); Hemoglobin 12.9 g/dL (12.0-16.0); Lymphocytes Absolute Auto 1700 /uL (1100-4500); Lymphocytes Percent Auto 23.8 % (25-40); Mean Corpuscular HGB Conc 33.5 % (30-36); Mean Corpuscular Hemoglobin 28.5 PG (26-34); Mean Corpuscular Volume 84.9 fL (80-100); Monocytes Absolute Auto 500 /uL (0-900); Monocytes Percent Auto 7.5 % (3-14); Neutrophils Absolute Auto 4700 /uL (1500-7000); Neutrophils Percent Auto 64.4 % (50-75); Platelet Count 285 X10^3/uL (150-400); Red Blood Cell Count 4.53 X10^6/uL (4.0-5.2); Red Cell Distribution Width 13.7 % (11.6-14.8); White Blood Cell Count 7.3 X10^3/uL (4.5-11.0)
[2019-11-29 19:29] LABS: Lactate (Lactic Acid) 0.6 mmol/L (0.7-2.1)
[2019-11-29 19:30] LABS: Alanine Aminotransferase 23 IU/L (<35); Albumin 4.4 g/dL (3.5-5.0); Albumin Globulin Ratio 1.3 (1.0-2.8); Alkaline Phosphatase 74 U/L (38-126); Aspartate Aminotransferase 27 IU/L (14-36); BUN Creatinine Ratio 16.3 (6-22); Bilirubin Total 0.4 mg/dL (0.2-1.3); Blood Urea Nitrogen 13 mg/dL (7-17); Calcium 9.5 mg/dL (8.4-10.2); Carbon Dioxide 31 mmol/L (22-32); Chloride 99 mmol/L (98-107); Estimated Glomerular Filt Rate > 60.0 mL/min (>60); Globulin 3.4 g/dL (1.7-4.1); Glucose 92 mg/dL (70-100); HEMOLYSIS < 15 (0-50); Lipase 73 U/L (23-300); Potassium 3.7 mmol/L (3.4-5.1); Sodium 135 mmol/L (137-145); Total Protein 7.8 g/dL (6.3-8.2)
[2019-11-29 20:27] VITALS: BP 130/92; PULSE 71; RESP 18; O2SAT 97
[2019-11-29 20:47] LABS: Thyroid Stimulating Hormone 118 uIU/mL (0.47-4.68)
[2019-11-29 21:49] VITALS: BP 122/89; PULSE 72; RESP 17; O2SAT 98
[2019-11-29 21:59] VITALS: BP 154/98; PULSE 84; RESP 16; O2SAT 100
--- NOTE | 2019-12-02 13:49 | CM.SWNOTE ---
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 SW called pt on her cell [phone] and pt states that she is just about to head to the pharmacy to cotton picking machine operator her meds right now and pt states she does not have any further concerns the past few days since her discharge. SW encouraged her to call back if any concerns arise. MONICA Ortiz
== END 2019-11-29 22:00 | disposition home or self-care (01) ==
PROVIDERS: Emergency Provider Student in an Organized Health Care Education/Training Program; PCP Internal Medicine
DX: R10.9 Unspecified abdominal pain (principal); M79.10 Myalgia, unspecified site; E03.9 Hypothyroidism, unspecified; R30.0 Dysuria
CPT/HCPCS: 36415; 80053; 81003; 81025; 83605; 83690; 84443; 85025; 99283

== ENCOUNTER 2019-12-21 22:16 | Emergency (ER) | payer OTHER, MEDICAID, SELFPAY ==
[2019-12-21 22:26] VITALS: BP 141/92; PULSE 70; O2SAT 99
[2019-12-21 22:30] VITALS: BP 141/92; PULSE 69; RESP 15; TEMP 36.6; O2SAT 100; BMI 32.3
[2019-12-21 22:32] VITALS: BP 139/93; PULSE 72; O2SAT 100
--- NOTE | 2019-12-21 22:43 | ED.GENADULT ---
HPI - General Adult General Chief complaint: Dizziness Stated complaint: dizziness Time Seen by Provider: 12/21/19 22:21 Source: patient Mode of arrival: Family Vehicle Limitations: no limitations History of Present Illness HPI narrative: Patient is a 34-year-old female here for evaluation of which she describes as a dizziness sensation. A couple hours prior to arrival after she had a muscle spasm in her back. Difficult to have the patient explain exactly which she is feeling. She even states that it is difficult for her to describe. She does state she has a headache but does not feel that this dizziness is related to the headache. She does have a history of headaches. She does admit that the light hurts her eyes but does not feel that her symptoms are any worse or better with her eyes open or closed. No ringing in her ears. No fevers. Did not fall. Did not hit her head. Related Data Home Medications Medication Instructions Recorded Confirmed medroxyprogesterone 150 mg IM [id number] #0 02/17/17 07/30/19 [MagDelay] #0 08/23/17 07/30/19 amitriptyline 10 mg tablet 10 mg PO DAILY 12/25/17 07/30/19 verapamil 120 mg 24 hr 120 mg PO DAILY 12/25/17 07/30/19 capsule,extended release epinephrine [EpiPen 2-Mark] 0.3 mg INJ SEE INSTRUCTIONS PRN 11/29/19 11/29/19 Previous Rx's Medication Instructions Recorded omeprazole 20 mg PO BID #60 cap 11/25/16 diclofenac sodium [Voltaren] 1 alex TOPICAL QDAY #100 gm 06/05/17 lamotrigine 300 mg PO HS #60 tab 06/20/17 sertraline [Zoloft] 100 mg PO HS #90 tab 06/20/17 clonazepam 1 mg PO BID AND HS #120 tab 08/17/17 dextroamphetamine-amphetamine 15 mg PO QDAY #30 cer 08/17/17 [Adderall XR] dextroamphetamine-amphetamine 15 mg PO QDAY #30 tab 08/17/17 [Adderall] ranitidine HCl 150 mg PO BID #60 tab 08/18/17 mupirocin 0 alex TOPICAL TID #22 gm 08/26/17 carisoprodol 350 mg PO TIDP PRN #90 tab 09/05/17 acyclovir 400 mg PO BID #60 tab 04/23/18 methocarbamol 750 mg PO QID PRN #30 tab 01/11/18 diazepam [Valium] 5 mg PO BID-QID PRN #10 tab 07/02/18 cyclobenzaprine 10 mg PO TID PRN #14 tab 06/26/19 levothyroxine 175 mcg PO DAILY #30 cap MDD 175mcg 11/29/19 Allergies Allergy/AdvReac Type Severity Reaction Status Date / Time acetaminophen [ACETAMINOPHEN] Allergy Intermediate RASH WITH Verified 07/30/19 12:02 LARGE AMOUNTS doxycycline [DOXYCYCLINE] Allergy Intermediate VOMITING Verified 07/30/19 12:02 adhesive tape [ADHESIVE TAPE] Allergy Unknown Verified 07/30/19 12:02 bee venom protein (honey bee) Allergy Unknown Verified 07/30/19 12:02 [BEE VENOM PROTEIN (HONEY BEE)] Milk Containing Products Allergy Unknown Verified 07/30/19 12:02 [MILK CONTAINING PRODUCTS] cyclobenzaprine AdvReac Migraine Verified 07/30/19 12:02 [From Flexeril] Review of Systems Constitutional Constitutional: Denies fatigue, Denies fever(s) and Reports headache(s) Eyes Comments: Photophobia ENT Ears, Nose, Mouth, and Throat: Reports dizziness, Reports headache(s), Reports disequilibrium and Denies sinus pain Cardiovascular Cardiovascular: Denies chest pain and Denies dyspnea Respiratory Respiratory: Denies dyspnea Gastrointestinal Gastrointestinal: Denies abdominal pain and Reports nausea Musculoskeletal Musculoskeletal: Reports back pain Integumentary/Breasts Skin/Breast: Denies rash Neurologic Neurologic: Reports dizziness, Reports headache(s), Denies localized weakness and Reports disequilibrium Endocrine Endocrine: Denies fatigue Hematologic/Lymphatic Hematologic/Lymphatic: Denies easy bleeding and Denies easy bruising Allergic/Immunologic Allergic/Immunologic: Denies urticaria Patient History Medical History Bipolar 1 disorder (Acute) GERD (gastroesophageal reflux disease) (Acute) PTSD (post-traumatic stress disorder) (Acute) Rheumatoid arthritis (Acute) Skin rash (Acute) Thyroid cancer (Acute) UTI (urinary tract infection) (Acute) Surgical History History of thyroidectomy History of tonsillectomy Status post laparoscopy Family History Grandfather Cancer Diabetes mellitus Heart disease Hypertension High cholesterol Grandmother Cancer Diabetes mellitus Hypertension High cholesterol Mental health problem Mother Age: 57 Diabetes mellitus Grandmother Cancer Social History Smoking Status: Current every day smoker alcohol intake: never Smoking Status: Current every day smoker alcohol intake frequency: 0-2 drinks per day Substance Use Type: does not use Exam Initial Vital Signs Initial Vital Signs: Vital Signs Pulse Rate 70 12/21/19 22:26 Blood Pressure 141/92 H 12/21/19 22:26 Pulse Oximetry 99 12/21/19 22:26 Const Limitations: mental status not altered HENMT Head: normal to inspection and normocephalic Ears: TM's normal bilaterally Nose: external nose normal Mouth: oral mucosae normal Eyes General: appearance normal, both eyes and all related structures Pupils: PERRL EOM: EOM intact bilaterally Resp Effort & Inspection: normal respiratory effort Auscultation: clear to auscultation bilaterally Cardio Rhythm: regular rhythm Skin Lesions: no lesions Rashes: no rashes Neuro General: patient alert, patient awake and patient oriented x3 Cranial Nerves: CN's II-XI intact bilaterally Cognition: normal cognition Speech: speech normal Sensory Exam: no sensory deficits noted Extrem General: normal to inspection and capillary refill normal Psych Appearance: grossly normal and well kempt Scores GCS Ray coma scale eye opening: Spontaneous Sarita coma scale verbal response: Orientated Ray coma scale motor response: Obey commands Sarita coma scale total score: 15 Course Orders Ordered: ED Orders 12/21/19 22:30 Complete Blood Count AUTO DIFF Stat Comprehensive Metabolic Panel Stat Ethanol (ETOH) Stat Lipase Stat Test Serum,Qual Stat Thyroid Stimulating Hormone Stat 12/21/19 22:46 EKG-12 Lead Stat Discontinued Medications Diazepam (Valium) 2 mg PO NOW ONE Stop: 12/21/19 22:50 Last Admin: 12/21/19 22:59 Dose: 2 mg Documented by: DAVID Sodium Chloride (Normal Saline 0.9%) 1,000 mls @ 1,000 mls/hr IV BOLUS ONE Stop: 12/21/19 23:45 Last Infusion: 12/22/19 00:15 Dose: 0 mls/hr Documented by: Infusion: 12/21/19 23:52 Dose: 0 mls/hr Documented by: Admin: 12/21/19 22:58 Dose: 1,000 mls/hr Documented by: DAVID Ketorolac Tromethamine (Toradol) 30 mg IV NOW ONE Stop: 12/21/19 22:47 Last Admin: 12/21/19 22:58 Dose: 30 mg Documented by: DAVID Vital Signs Vital signs: Vital Signs - 8 hr 12/21/19 22:26 12/21/19 22:30 12/21/19 22:32 Temperature 97.9 F Pulse Rate 70 69 72 Respiratory Rate 15 Blood Pressure 141/92 H 141/92 H 139/93 H Pulse Oximetry 99 100 100 12/21/19 23:00 12/21/19 23:30 12/22/19 00:00 Temperature Pulse Rate 75 75 68 Respiratory Rate 21 17 15 Blood Pressure 139/93 H Pulse Oximetry 100 96 100 12/22/19 00:02 12/22/19 00:03 12/22/19 00:30 Temperature 97.8 F Pulse Rate 77 77 82 Respiratory Rate 16 16 18 Blood Pressure 122/77 122/77 Pulse Oximetry 100 100 99 Medical Decision Making Lab Data Lab results reviewed: Yes I reviewed the patient's lab results. Result diagrams: 12/21/19 22:30 12/21/19 22:30 Labs: Lab Results 12/21/19 12/21/19 12/21/19 Range/Units 22:30 22:30 22:30 WBC 7.4 (4.5-11.0) X10^3/uL RBC 4.00 (4.0-5.2) X10^6/uL Hgb 11.3 L (12.0-16.0) g/dL Hct 34.0 L (36-46) % MCV 85.0 (80-100) fL MCH 28.4 (26-34) PG MCHC 33.4 (30-36) % RDW 14.5 (11.6-14.8) % Plt Count 261 (150-400) X10^3/uL Neut % (Auto) 61.9 (50-75) % Lymph % (Auto) 27.6 (25-40) % [place] % (Auto) 8.1 (3-14) % Eos % (Auto) 1.9 L (2-4) % Baso % (Auto) 0.5 (0-2) % Neut # (Auto) 4600 (6685-6217) /uL Lymph # (Auto) 2000 (6730-6494) /uL [place] # (Auto) 600 (0-900) /uL Eos # (Auto) 100 (0-450) /uL Baso # (Auto) 0 (0-100) /uL Sodium 135 L (137-145) mmol/L Potassium 3.9 (3.4-5.1) mmol/L Chloride 104 (98-107) mmol/L Carbon Dioxide 27 (22-32) mmol/L BUN 18 H (7-17) mg/dL Creatinine 0.88 (0.52-1.04) mg/dL Estimated GFR > 60.0 (>60) mL/min BUN/Creatinine Ratio 20.5 (6-22) Glucose 101 H (70-100) mg/dL Calcium 8.9 (8.4-10.2) mg/dL Total Bilirubin 0.3 (0.2-1.3) mg/dL AST 25 (14-36) IU/L ALT 23 (<35) IU/L Alkaline Phosphatase 66 (38-126) U/L Total Protein 6.8 (6.3-8.2) g/dL Albumin 4.0 (3.5-5.0) g/dL Globulin 2.8 (1.7-4.1) g/dL Albumin/Globulin Ratio 1.4 (1.0-2.8) Lipase 106 (23-300) U/L TSH 38.8 H (0.47-4.68) uIU/mL Serum , Qual (Negative) Ethyl Alcohol < 10 ( - 10) mg/dL 12/20/ Range/Units 22:30 WBC (4.5-11.0) X10^3/uL RBC (4.0-5.2) X10^6/uL Hgb (12.0-16.0) g/dL Hct (36-46) % MCV (80-100) fL MCH (26-34) PG MCHC (30-36) % RDW (11.6-14.8) % Plt Count (150-400) X10^3/uL Neut % (Auto) (50-75) % Lymph % (Auto) (25-40) % [place] % (Auto) (3-14) % Eos % (Auto) (2-4) % Baso % (Auto) (0-2) % Neut # (Auto) (9600-3895) /uL Lymph # (Auto) (8033-2716) /uL [place] # (Auto) (0-900) /uL Eos # (Auto) (0-450) /uL Baso # (Auto) (0-100) /uL Sodium (137-145) mmol/L Potassium (3.4-5.1) mmol/L Chloride (98-107) mmol/L Carbon Dioxide (22-32) mmol/L BUN (7-17) mg/dL Creatinine (0.52-1.04) mg/dL Estimated GFR (>60) mL/min BUN/Creatinine Ratio (6-22) Glucose (70-100) mg/dL Calcium (8.4-10.2) mg/dL Total Bilirubin (0.2-1.3) mg/dL AST (14-36) IU/L ALT (<35) IU/L Alkaline Phosphatase (38-126) U/L Total Protein (6.3-8.2) g/dL Albumin (3.5-5.0) g/dL Globulin (1.7-4.1) g/dL Albumin/Globulin Ratio (1.0-2.8) Lipase (23-300) U/L TSH (0.47-4.68) uIU/mL Serum , Qual Negative (Negative) Ethyl Alcohol ( - 10) mg/dL ECG Data Attestation: I personally reviewed and interpreted this ECG as follows: Prior ECG tracings: not available for review Interpretation: Sinus rhythm Ventricular rate is 67 Normal axis Normal QRS Normal QTC No ST T wave changes MDM Narrative Medical decision making narrative: Patient motor neurologic exam. EKG is unremarkable. Low suspicion for CVA/TIA/seizures. Patient's TSH is elevated. She states that she does take her Synthroid however she does admit that it is probably not as consistent as what it should be. She would not commit as to how often she routinely takes it however she does state that she has taken it over the past couple days since she ?had it refilled ?we did discuss her TSH level. Informed her that if she does not take her current dose of Synthroid on a regular basis that she should continue to do so as directed. Informed her that if she is taking at then he should be increased. She states she has been on 200 micro g in the past and for some reason it was reduced and she does not know why. I did inform her that in if she is taking her current dose on a regular basis that increasing it to 200 mg daily is not unreasonable. I did inform her that she should contact her primary doctor for follow-up. She states she did not have a primary doctor so she was given the health natural resources instructor phone number. I feel patient can be safely discharged home. She was given return precautions and follow-up instructions. She expressed understanding and agreement. Discharge Plan Departure Patient Disposition: Home Clinical Impression: Dizziness Hypothyroid Qualifiers: Hypothyroidism type: unspecified Qualified Code(s): E03.9 - Hypothyroidism, unspecified Discharge Date/Time: 12/22/19 01:01 Instructions: Hypothyroidism, DI for Dizziness-Nonvertigo Activity Restrictions/Additional Instructions: Recommend that you go up to 200 micro g of the Synthroid/levothyroxine on a daily basis. I also recommend that you contact the health resource was coordinator here at the hospital at [phone] to help you establish a primary provider. Return to the emergency department for any new or worsening symptoms Prescriptions: No Action amitriptyline 10 mg tablet 10 mg PO DAILY RF: 0 verapamil 120 mg capsule,ext rel. pellets 24 hr 120 mg PO DAILY RF: 0 omeprazole 20 MG capsule,delayed release(DR/EC) 20 mg PO BID Qty: 60 RF: 11 medroxyprogesterone 150 MG/1 ML suspension 150 mg IM [id number] Qty: 0 RF: 0 diclofenac sodium [Voltaren] 1 % gel 1 alex Topical QDAY Qty: 100 RF: 3 lamotrigine 150 MG tablet 300 mg PO HS Qty: 60 RF: 6 sertraline [Zoloft] 100 MG tablet 100 mg PO HS Qty: 90 RF: 1 clonazepam 1 MG tablet 1 mg PO BID AND HS Qty: 120 RF: 3 dextroamphetamine-amphetamine [Adderall] 15 MG tablet 15 mg PO QDAY Qty: 30 RF: 0 dextroamphetamine-amphetamine [Adderall XR] 15 MG capsule,extended release 24hr 15 mg PO QDAY Qty: 30 RF: 0 ranitidine HCl 150 MG tablet 150 mg PO BID Qty: 60 RF: 11 [MagDelay] Qty: 0 RF: 0 mupirocin 2 % ointment 0 alex Topical TID Qty: 22 RF: 0 carisoprodol 350 MG tablet 350 mg PO TIDP PRNQty: 90 RF: 0 acyclovir 400 MG tablet 400 mg PO BID Qty: 60 RF: 11 methocarbamol 750 mg tablet 750 mg PO QID PRN (Reason: muscle spasm) Qty: 30 RF: 0 cyclobenzaprine 10 mg tablet 10 mg PO TID PRN (Reason: muscle spasm) Qty: 14 RF: 0 diazepam [Valium] 5 mg tablet 5 mg PO BID-QID PRN (Reason: muscle spasm) Qty: 10 RF: 0 epinephrine [EpiPen 2-Mark] 0.3 MG/0.3 ML auto-injector 0.3 mg INJ SEE INSTRUCTIONS PRN (Reason: Allergic Reaction) RF: 0 levothyroxine 175 mcg capsule 175 mcg PO DAILY MDD 175mcg Qty: 30 RF: 0
[2019-12-21 22:54] LABS: Add Manual Diff / Slide Review NO; Basophils Absolute Auto 0 /uL (0-100); Basophils Percent Auto 0.5 % (0-2); Eosinophils Absolute Auto 100 /uL (0-450); Eosinophils Percent Auto 1.9 % (2-4); Hemoglobin 11.3 g/dL (12.0-16.0); Lymphocytes Absolute Auto 2000 /uL (1100-4500); Lymphocytes Percent Auto 27.6 % (25-40); Mean Corpuscular HGB Conc 33.4 % (30-36); Mean Corpuscular Hemoglobin 28.4 PG (26-34); Monocytes Absolute Auto 600 /uL (0-900); Monocytes Percent Auto 8.1 % (3-14); Neutrophils Absolute Auto 4600 /uL (1500-7000); Neutrophils Percent Auto 61.9 % (50-75); Platelet Count 261 X10^3/uL (150-400); Red Cell Distribution Width 14.5 % (11.6-14.8); White Blood Cell Count 7.4 X10^3/uL (4.5-11.0)
[2019-12-21 22:58] LABS: Alanine Aminotransferase 23 IU/L (<35); Albumin Globulin Ratio 1.4 (1.0-2.8); Alkaline Phosphatase 66 U/L (38-126); Aspartate Aminotransferase 25 IU/L (14-36); BUN Creatinine Ratio 20.5 (6-22); Bilirubin Total 0.3 mg/dL (0.2-1.3); Blood Urea Nitrogen 18 mg/dL (7-17); Calcium 8.9 mg/dL (8.4-10.2); Carbon Dioxide 27 mmol/L (22-32); Chloride 104 mmol/L (98-107); Estimated Glomerular Filt Rate > 60.0 mL/min (>60); Globulin 2.8 g/dL (1.7-4.1); Glucose 101 mg/dL (70-100); HEMOLYSIS < 15 (0-50); Lipase 106 U/L (23-300); Potassium 3.9 mmol/L (3.4-5.1); Sodium 135 mmol/L (137-145); Total Protein 6.8 g/dL (6.3-8.2)
[2019-12-21] MEDS: KETOROLAC 60 MG/2 ML VIAL 30 MG IV (22:58)
[2019-12-21] MEDS: SODIUM CHLORIDE 0.9% 1,000 ML 1000 ML IV (22:58)
[2019-12-21 22:59] LABS: Pregnancy Test Serum,Qual Negative (Negative)
[2019-12-21] MEDS: diazePAM 2 MG TABLET PO (22:59)
[2019-12-21 23:00] VITALS: BP 139/93; PULSE 75; PULSE 83; RESP 16; RESP 21; O2SAT 100; O2SAT 99
[2019-12-21 23:13] LABS: Ethanol (ETOH) < 10 mg/dL
[2019-12-21 23:30] VITALS: PULSE 75; RESP 17; O2SAT 96
[2019-12-21 23:31] LABS: Thyroid Stimulating Hormone 38.8 uIU/mL (0.47-4.68)
[2019-12-22] VITALS: PULSE 68; RESP 15; O2SAT 100
[2019-12-22 00:02] VITALS: BP 122/77; PULSE 77; RESP 16; O2SAT 100
[2019-12-22 00:03] VITALS: BP 122/77; PULSE 77; RESP 16; TEMP 36.6; O2SAT 100
[2019-12-22 00:30] VITALS: PULSE 82; RESP 18; O2SAT 99
== END 2019-12-22 01:01 | disposition home or self-care (01) ==
PROVIDERS: Emergency Provider Emergency Medicine
DX: R42 Dizziness and giddiness (principal); E03.9 Hypothyroidism, unspecified; R07.9 Chest pain, unspecified
CPT/HCPCS: 36415; 80053; 80320; 83690; 84443; 84703; 85025; 93005; 96361; 96374; 99284; J1885

== ENCOUNTER 2020-04-17 18:19 | Emergency (ER) | payer OTHER, MEDICAID, SELFPAY | END 2020-04-17 19:15 | disposition left against medical advice (07) | PROVIDERS: Emergency Provider Emergency Medicine ==

== ENCOUNTER 2020-06-24 16:40 | Observation (INO) | payer OTHER, MEDICAID, SELFPAY ==
[2020-06-24] VITALS (8 sets, daily range): BP systolic 104–132; BP diastolic 57–85; PULSE 87–100; RESP 12–90; TEMP 36.2–36.7; O2SAT 97–100; BMI 37.1
[2020-06-24 18:59] LABS: Add Manual Diff / Slide Review NO; Basophils Absolute Auto 100 /uL (0-100); Basophils Percent Auto 1.1 % (0-2); Eosinophils Absolute Auto 100 /uL (0-450); Eosinophils Percent Auto 1.2 % (2-4); Hematocrit 22.7 % (36-46); Hemoglobin 7.5 g/dL (12.0-16.0); Lymphocytes Absolute Auto 2700 /uL (1100-4500); Mean Corpuscular HGB Conc 32.9 % (30-36); Mean Corpuscular Hemoglobin 28.3 PG (26-34); Monocytes Absolute Auto 600 /uL (0-900); Monocytes Percent Auto 6.3 % (3-14); Neutrophils Absolute Auto 6400 /uL (1500-7000); Neutrophils Percent Auto 64.4 % (50-75); Platelet Count 322 X10^3/uL (150-400); Red Blood Cell Count 2.64 X10^6/uL (4.0-5.2); Red Cell Distribution Width 17.4 % (11.6-14.8); White Blood Cell Count 9.9 X10^3/uL (4.5-11.0)
[2020-06-24 19:15] LABS: BUN Creatinine Ratio 13.9 (6-22); Blood Urea Nitrogen 17 mg/dL (7-17); Calcium 8.6 mg/dL (8.4-10.2); Carbon Dioxide 30 mmol/L (22-32); Chloride 104 mmol/L (98-107); Estimated Glomerular Filt Rate 49.6 mL/min (>60); Glucose 103 mg/dL (70-100); HEMOLYSIS < 15 (0-50); Potassium 3.6 mmol/L (3.4-5.1); Sodium 135 mmol/L (137-145)
--- NOTE | 2020-06-24 20:14 | ED.GENADULT ---
HPI - General Adult General Chief complaint: Vaginal Bleeding Stated complaint: very heavy period Time Seen by Provider: 06/24/20 18:01 Source: patient Mode of arrival: Ambulatory Limitations: no limitations History of Present Illness HPI narrative: Patient is a 35-year-old female who is here for 4 days of heavy menstrual cycle. She is not on control. She has had heavy menstrual cycles in the past and has had have blood transfusions and a D&C in the past. She is here stating that for the past 4 days she has had very heavy vaginal bleeding. She does not know exactly how many feminine products she has had to go through has she has used with a paper most of the time in place of feminine products. She states that when she does have to change these pads she is passing very large clots. She is also becoming lightheaded in very fatigued and she feels like that she is pale. She denies any fevers. Related Data Home Medications Medication Instructions Recorded Confirmed medroxyprogesterone 150 mg IM [id number] #0 02/17/17 07/30/19 [MagDelay] #0 08/23/17 07/30/19 amitriptyline 10 mg tablet 10 mg PO DAILY 12/25/17 07/30/19 verapamil 120 mg 24 hr 120 mg PO DAILY 12/25/17 07/30/19 capsule,extended release epinephrine [EpiPen 2-Mark] 0.3 mg INJ SEE INSTRUCTIONS PRN 11/29/19 11/29/19 Previous Rx's Medication Instructions Recorded omeprazole 20 mg PO BID #60 cap 11/25/16 diclofenac sodium [Voltaren] 1 alex TOPICAL QDAY #100 gm 06/05/17 lamotrigine 300 mg PO HS #60 tab 06/20/17 sertraline [Zoloft] 100 mg PO HS #90 tab 06/20/17 clonazepam 1 mg PO BID AND HS #120 tab 08/17/17 dextroamphetamine-amphetamine 15 mg PO QDAY #30 cer 08/17/17 [Adderall XR] dextroamphetamine-amphetamine 15 mg PO QDAY #30 tab 08/17/17 [Adderall] ranitidine HCl 150 mg PO BID #60 tab 08/18/17 mupirocin 0 alex TOPICAL TID #22 gm 08/26/17 carisoprodol 350 mg PO TIDP PRN #90 tab 09/05/17 acyclovir 400 mg PO BID #60 tab 09/18/17 methocarbamol 750 mg PO QID PRN #30 tab 01/11/18 diazepam [Valium] 5 mg PO BID-QID PRN #10 tab 07/02/18 cyclobenzaprine 10 mg PO TID PRN #14 tab 06/26/19 levothyroxine 175 mcg PO DAILY #30 cap MDD 175mcg 11/29/19 Allergies Allergy/AdvReac Type Severity Reaction Status Date / Time acetaminophen [ACETAMINOPHEN] Allergy Intermediate RASH WITH Verified 06/24/20 18:01 LARGE AMOUNTS doxycycline [DOXYCYCLINE] Allergy Intermediate VOMITING Verified 06/24/20 18:01 adhesive tape [ADHESIVE TAPE] Allergy Unknown Verified 06/24/20 18:01 bee venom protein (honey bee) Allergy Unknown Verified 06/24/20 18:01 [BEE VENOM PROTEIN (HONEY BEE)] Milk Containing Products Allergy Unknown Verified 06/24/20 18:01 [MILK CONTAINING PRODUCTS] cyclobenzaprine AdvReac Migraine Verified 06/24/20 18:01 [From Flexeril] Review of Systems Constitutional Constitutional: Reports fatigue, Denies fever(s) and Reports lethargy Cardiovascular Cardiovascular: Denies chest pain and Denies dyspnea Respiratory Respiratory: Denies dyspnea Gastrointestinal Gastrointestinal: Denies abdominal pain, Denies nausea and Denies vomiting Genitourinary Genitourinary: Reports vaginal discharge Musculoskeletal Musculoskeletal: Denies arthralgias and Denies myalgias Integumentary/Breasts Skin/Breast: Denies rash Neurologic Neurologic: Denies behavioral changes Psychiatric Psychiatric: Denies behavioral changes Endocrine Endocrine: Reports fatigue Hematologic/Lymphatic On Anticoagulants: No Allergic/Immunologic Allergic/Immunologic: Denies urticaria Patient History Medical History Bipolar 1 disorder GERD (gastroesophageal reflux disease) PTSD (post-traumatic stress disorder) Rheumatoid arthritis Skin rash Thyroid cancer UTI (urinary tract infection) Surgical History History of thyroidectomy History of tonsillectomy Status post laparoscopy Family History Grandfather Cancer Diabetes mellitus Heart disease Hypertension High cholesterol Grandmother Cancer Diabetes mellitus Hypertension High cholesterol Mental health problem Mother Age: 58 Diabetes mellitus Grandmother Cancer Social History Smoking Status: Current every day smoker alcohol intake: never Smoking Status: Current every day smoker alcohol intake frequency: 0-2 drinks per day Substance Use Type: does not use Exam Initial Vital Signs Initial Vital Signs: Vital Signs Temperature 98.0 F 06/24/20 17:56 Pulse Rate 100 H 06/24/20 17:56 Respiratory Rate 12 06/24/20 17:56 Blood Pressure 132/85 06/24/20 17:56 Pulse Oximetry 97 06/24/20 17:56 Const General: cooperative and comfortable Limitations: mental status not altered HENMT Nose: external nose normal Mouth: other (palor on the gums) Resp Effort & Inspection: normal respiratory effort Auscultation: clear to auscultation bilaterally Cardio Rate: regular rate Rhythm: regular rhythm GI Inspection: non-distended Palpation: soft and tender (Lower abdomen) Skin General: pallor Neuro General: patient alert and patient awake Cognition: normal cognition Speech: speech normal Extrem General: capillary refill normal Psych Appearance: grossly normal and well kempt Course Orders Ordered: ED Orders 06/24/20 18:33 Basic Metabolic Panel Stat Complete Blood Count AUTO DIFF Stat Test Serum,Qual Stat 06/24/20 20:15 US pelvic complete Stat 06/24/20 20:25 Packed Cells Stat Type and Screen Stat 06/24/20 22:00 Hemoglobin and Hematocrit Stat 06/24/20 22:30 Consult to Physician Urgent 06/25/20 13:00 Hemoglobin and Hematocrit Stat Medroxyprogesterone Acetate (Medroxyprogesterone Acetate 10 Mg Tablet) 10 mg PO Q2HR LILA Last Admin: 06/24/20 22:51 Dose: 10 mg Documented by: OZ Discontinued Medications Tranexamic Acid (Tranexamic Acid 1,000 Mg Vial) 1,000 mg IV NOW ONE Stop: 06/24/20 22:22 Last Admin: 06/24/20 22:50 Dose: 1,000 mg Documented by: OZ Vital Signs Vital signs: Vital Signs - 8 hr 06/24/20 17:56 06/24/20 19:31 06/24/20 20:00 Temperature 98.0 F Pulse Rate 100 H 95 H 91 H Respiratory Rate 12 Blood Pressure 132/85 119/76 Pulse Oximetry 97 100 100 06/24/20 20:01 06/24/20 20:30 06/24/20 21:00 Temperature Pulse Rate 91 H 99 H 95 H Respiratory Rate Blood Pressure 104/57 L Pulse Oximetry 100 100 100 06/24/20 21:30 Temperature Pulse Rate 87 Respiratory Rate Blood Pressure Pulse Oximetry 100 Medical Decision Making Lab Data Lab results reviewed: Yes I reviewed the patient's lab results. Result diagrams: 06/24/20 22:00 06/24/20 18:33 Labs: Lab Results 06/24/20 06/24/20 06/24/20 Range/Units 18:33 18:33 18:33 WBC 9.9 (4.5-11.0) X10^3/uL RBC 2.64 L (4.0-5.2) X10^6/uL Hgb 7.5 L (12.0-16.0) g/dL Hct 22.7 L (36-46) % MCV 86.0 (80-100) fL MCH 28.3 (26-34) PG MCHC 32.9 (30-36) % RDW 17.4 H (11.6-14.8) % Plt Count 322 (150-400) X10^3/uL Neut % (Auto) 64.4 (50-75) % Lymph % (Auto) 27.0 (25-40) % [place] % (Auto) 6.3 (3-14) % Eos % (Auto) 1.2 L (2-4) % Baso % (Auto) 1.1 (0-2) % Neut # (Auto) 6400 (9217-8561) /uL Lymph # (Auto) 2700 (0251-7371) /uL [place] # (Auto) 600 (0-900) /uL Eos # (Auto) 100 (0-450) /uL Baso # (Auto) 100 (0-100) /uL Sodium 135 L (137-145) mmol/L Potassium 3.6 (3.4-5.1) mmol/L Chloride 104 (98-107) mmol/L Carbon Dioxide 30 (22-32) mmol/L BUN 17 (7-17) mg/dL Creatinine 1.22 H (0.52-1.04) mg/dL Estimated GFR 49.6 L (>60) mL/min BUN/Creatinine Ratio 13.9 (6-22) Glucose 103 H (70-100) mg/dL Calcium 8.6 (8.4-10.2) mg/dL Serum , Qual Negative (Negative) Blood Type Antibody Screen Crossmatch 06/24/20 06/24/20 Range/Units 20:25 22:00 WBC (4.5-11.0) X10^3/uL RBC (4.0-5.2) X10^6/uL Hgb 6.8 L* (12.0-16.0) g/dL Hct 20.9 L* (36-46) % MCV (80-100) fL MCH (26-34) PG MCHC (30-36) % RDW (11.6-14.8) % Plt Count (150-400) X10^3/uL Neut % (Auto) (50-75) % Lymph % (Auto) (25-40) % [place] % (Auto) (3-14) % Eos % (Auto) (2-4) % Baso % (Auto) (0-2) % Neut # (Auto) (1337-6536) /uL Lymph # (Auto) (1969-1795) /uL [place] # (Auto) (0-900) /uL Eos # (Auto) (0-450) /uL Baso # (Auto) (0-100) /uL Sodium (137-145) mmol/L Potassium (3.4-5.1) mmol/L Chloride (98-107) mmol/L Carbon Dioxide (22-32) mmol/L BUN (7-17) mg/dL Creatinine (0.52-1.04) mg/dL Estimated GFR (>60) mL/min BUN/Creatinine Ratio (6-22) Glucose (70-100) mg/dL Calcium (8.4-10.2) mg/dL Serum , Qual (Negative) Blood Type A Positive Antibody Screen Negative Crossmatch See Detail Imaging Data US - LAUNCH CHECK OUT: Radiologist's Impression: Multiple small cyst in the endometrium albertina certain etiology recommend further evaluation or follow-up MDM Narrative Medical decision making narrative: Patient is pale however has not hypotensive. She is afebrile. Her H&H initially upon arrival is anemic compared to prior labs from several years ago. Ultrasound was performed which did show endometrial thickening. A test was negative. A repeat H&H does show a decrease. Patient is symptomatic with the fact that she is becoming lightheaded and very fatigued is also pale. I did discuss the case with Dr. Mercado on-call for OB who recommended Provera and also TXA. Had a discussion with the patient regarding her blood loss. She has had a blood transfusion in the past. The options that we discussed were waiting and repeating the H&H throughout this evening to see if her blood counts continue to drop and transfusing her if she becomes more symptomatic verses transfusing now. Patient opted to go ahead and have a blood transfusion now. We discussed the risks and benefits of this. I do not think this is unreasonable given the fact that she is continuing to have bleeding here in the emergency department. We will admit under the senior financial reporting accountant service for continued evaluation and treatment. Holding orders placed. Discharge Plan Departure Patient Disposition: Admitted as Observation Clinical Impression: Heavy menstrual bleeding, Anemia Admit Date/Time: 06/24/20 23:12 Admit Provider: uAry Mercado
--- NOTE | 2020-06-24 20:15 | DI.US.S_ITS ---
PROCEDURE: US PELVIC COMPLETE INDICATIONS: HEAVY VAGINAL BLEEDING; ANEMIA TECHNIQUE: Real-time scanning was performed of the pelvic organs, with image documentation. Additional endovaginal scanning was necessary due to incomplete visualization of the adnexal and endometrial structures by transabdominal scanning. COMPARISON: [facility], US, PELVIC COMPLETE, 08/05/2013, 17:15. FINDINGS: Uterus: Uterus is retroverted and normal in size at 6.2 x 4.8 x 4.1 cm. No fibroids seen. The endometrium measures 12 mm in combined thickness. Endometrium appears heterogeneous with small cysts. Small nabothian cysts. Ovaries: Within normal limits. Blood flow seen in both ovaries. Right ovary measures 2.8 x 2.4 x 1.4 cm. Left ovary measures 3.6 x 3.3 x 2.2 cm. -simple anechoic left ovarian cyst measuring at 3.1 cm. No internal vascularity. Other: No pathologic free abdominal or pelvic fluid. IMPRESSION: 1. Endometrium appears heterogeneous with cystic change. Endometrial thickness measures 12 mm. Recommend clinical correlation. If clinically indicated follow-up ultrasound could be performed. 2. Small simple left ovarian cyst measuring 3.1 cm. 3. No free fluid seen. This report is concordant with the overnight preliminary interpretation. Dictated by: Robert Rodas M.D. on 06/25/2020 at 8:05 Approved by: Robert Rodas M.D. on 06/25/2020 at 8:09
[2020-06-24 21:08] LABS: Pregnancy Test Serum,Qual Negative (Negative)
[2020-06-24 22:11] LABS: Hemoglobin 6.8 g/dL (12.0-16.0)
[2020-06-24 22:12] LABS: Hematocrit 20.9 % (36-46)
[2020-06-24] MEDS: TRANEXAMIC ACID 1,000 MG VIAL 1000 MG IV (22:50)
[2020-06-24] MEDS: MEDROXYPROGESTERONE ACETATE 10 MG TABLET PO (22:51)
[2020-06-24] MEDS: SODIUM CHLORIDE 0.9% 100 ML 330 ML (22:53)
[2020-06-25] VITALS (17 sets, daily range): BP systolic 89–125; BP diastolic 51–90; PULSE 70–90; RESP 10–17; TEMP 36.4–37.1; O2SAT 96–100; BMI 37.1
--- NOTE | 2020-06-25 | PATH_ITS ---
[facility] Accession Number: [id number] . 01 Material submitted: . endometrium - ENDOMETRIAL CURETTINGS . 01 Clinical history: . VERY HEAVY PERIOD . 02 Diagnosis: Endometrium, Curettings: Polypoid fragments of disordered proliferative endometrium. No evidence of neoplasia or hyperplasia. MRV 06/30/2020 1242 Local . 02 Electronically signed: . Milagros Weldon MD, Pathologist NPI- [id number] . 01 Gross description: . The specimen is received in formalin, labeled endometrial curettings and consists of multiple gallagher-pink fragments of soft tissue and clotted blood measuring 2.0 x 1.0 x 0.3 cm in aggregate. The specimen is filtered and entirely submitted in cassette A1. ([id number]) /MRV 06/26/2020 1146 Local . 02 Pathologist provided ICD-10: N92.0 . 02 CPT . 437677 Performed at: 01 [facility] [address], [place], [place] [id number] MD Gustabo Linn MD Phone: [phone] Performed at: 02 [facility] [address] [place], [place] [id number] MD Milagros Weldon MD Phone: [phone]
[2020-06-25] MEDS: MEDROXYPROGESTERONE ACETATE 10 MG TABLET PO ×6 (00:19→08:59)
[2020-06-25 00:32] LABS: COVID19 -Nasal RAPID Negative (Negative)
[2020-06-25 04:56] LABS: Hematocrit 23.8 % (36-46); Hemoglobin 7.8 g/dL (12.0-16.0)
[2020-06-25] MEDS: MEDROXYPROGESTERONE 150 MG/ML SYRINGE IM (11:00)
[2020-06-25] MEDS: LACTATED RINGERS 1,000 ML 100 ML IV (11:08)
--- NOTE | 2020-06-25 11:09 | P.HPOB_ITS ---
History of Present Illness History of Present Illness Reason for admission: vaginal bleeding Narrative: Ariella Fox is a 35 year old female admitted with significant anemia from menorrhagia. Patient has a long history of menorrhagia. She was treated in the past with a D&C and Depo-Provera. Patient states she has not gotten a Depo-Provera shot for over a year. She presented to the emergency room because of the heavy bleeding and weakness. Despite her long list of medications when asked if she is taking in medication she denies taking any. COUNTS INCLUDE 234 BEDS AT THE [facility] Medical History Bipolar 1 disorder GERD (gastroesophageal reflux disease) PTSD (post-traumatic stress disorder) Rheumatoid arthritis Skin rash Thyroid cancer UTI (urinary tract infection) Surgical History History of thyroidectomy History of tonsillectomy Status post laparoscopy Family History Grandfather Cancer Diabetes mellitus Heart disease Hypertension High cholesterol Grandmother Cancer Diabetes mellitus Hypertension High cholesterol Mental health problem Mother Age: 58 Diabetes mellitus Grandmother Cancer Social History household members: none Smoking Status: Current every day smoker alcohol intake: never Meds Home Medications and Allergies Home Medications Medication Instructions Recorded Confirmed Type omeprazole 20 mg PO BID #60 cap 11/25/16 07/30/19 Rx medroxyprogesterone 150 mg IM [id number] #0 02/17/17 07/30/19 History diclofenac sodium [Voltaren] 1 alex TOPICAL QDAY #100 gm 06/05/17 07/30/19 Rx lamotrigine 300 mg PO HS #60 tab 06/20/17 07/30/19 Rx sertraline [Zoloft] 100 mg PO HS #90 tab 06/20/17 07/30/19 Rx clonazepam 1 mg PO BID AND HS #120 tab 08/17/17 07/30/19 Rx dextroamphetamine-amphetamine 15 mg PO QDAY #30 cer 08/17/17 07/30/19 Rx [Adderall XR] dextroamphetamine-amphetamine 15 mg PO QDAY #30 tab 08/17/17 07/30/19 Rx [Adderall] ranitidine HCl 150 mg PO BID #60 tab 08/18/17 07/30/19 Rx [MagDelay] #0 08/23/17 07/30/19 History mupirocin 0 alex TOPICAL TID #22 gm 08/26/17 07/30/19 Rx carisoprodol 350 mg PO TIDP PRN #90 tab 09/05/17 07/30/19 Rx acyclovir 400 mg PO BID #60 tab 09/18/17 11/29/19 Rx amitriptyline 10 mg tablet 10 mg PO DAILY 12/25/17 07/30/19 History verapamil 120 mg 24 hr 120 mg PO DAILY 12/25/17 07/30/19 History capsule,extended release methocarbamol 750 mg PO QID PRN #30 tab 01/11/18 07/30/19 Rx diazepam [Valium] 5 mg PO BID-QID PRN #10 tab 07/02/18 07/30/19 Rx cyclobenzaprine 10 mg PO TID PRN #14 tab 06/26/19 07/30/19 Rx epinephrine [EpiPen 2-Mark] 0.3 mg INJ SEE INSTRUCTIONS PRN 11/29/19 11/29/19 History levothyroxine 175 mcg PO DAILY #30 cap MDD 175mcg 11/29/19 Rx Allergies Allergy/AdvReac Type Severity Reaction Status Date / Time acetaminophen [ACETAMINOPHEN] Allergy Intermediate RASH WITH Verified 06/24/20 18:01 LARGE AMOUNTS doxycycline [DOXYCYCLINE] Allergy Intermediate VOMITING Verified 06/24/20 18:01 adhesive tape [ADHESIVE TAPE] Allergy Unknown Verified 06/24/20 18:01 bee venom protein (honey bee) Allergy Unknown Verified 06/24/20 18:01 [BEE VENOM PROTEIN (HONEY BEE)] Milk Containing Products Allergy Unknown Verified 06/24/20 18:01 [MILK CONTAINING PRODUCTS] cyclobenzaprine AdvReac Migraine Verified 06/24/20 18:01 [From Flexeril] Review of Systems Review of Systems Narrative: Patient denies fevers. She denies abdominal pain but mild cramping. Exam Vital Signs (past 8 hours): - 06/25/20 04:16 06/25/20 08:35 06/25/20 08:37 Temperature 98.1 F 98.6 F 98.5 F Pulse Rate 86 85 85 Respiratory Rate 15 17 17 Blood Pressure 121/68 109/65 109/65 Pulse Oximetry 100 98 98 Oxygen Delivery Method Room Air Narrative Exam Narrative: HEENT exam within normal limits. Lungs are clear to auscultation percussion. Heart is regular rate and rhythm no S3-S4 murmurs. Abdomen is soft, nontender with no palpable organomegaly. Pelvic exam was not performed. Extremities without edema and nontender. Objective Imaging US - abdomen: Radiologist's impression: Mildly thickened endometrium with heterogeneity. No fibroids. 3.1 cm simple left ovarian cyst. Labs Result Diagrams: 06/25/20 04:34 06/24/20 18:33 Labs: Laboratory Results - last 24 hr 06/24/20 06/24/20 06/24/20 18:33 18:33 18:33 WBC 9.9 RBC 2.64 L Hgb 7.5 L Hct 22.7 L MCV 86.0 MCH 28.3 MCHC 32.9 RDW 17.4 H Plt Count 322 Neut % (Auto) 64.4 Lymph % (Auto) 27.0 [place] % (Auto) 6.3 Eos % (Auto) 1.2 L Baso % (Auto) 1.1 Neut # (Auto) 6400 Lymph # (Auto) 2700 [place] # (Auto) 600 Eos # (Auto) 100 Baso # (Auto) 100 Sodium 135 L Potassium 3.6 Chloride 104 Carbon Dioxide 30 BUN 17 Creatinine 1.22 H Estimated GFR 49.6 L BUN/Creatinine Ratio 13.9 Glucose 103 H Calcium 8.6 Serum , Qual Negative SARS-CoV-2 (PCR) Blood Type Antibody Screen Crossmatch 06/24/20 06/24/20 06/24/20 20:25 22:00 23:57 WBC RBC Hgb 6.8 L* Hct 20.9 L* MCV MCH MCHC RDW Plt Count Neut % (Auto) Lymph % (Auto) [place] % (Auto) Eos % (Auto) Baso % (Auto) Neut # (Auto) Lymph # (Auto) [place] # (Auto) Eos # (Auto) Baso # (Auto) Sodium Potassium Chloride Carbon Dioxide BUN Creatinine Estimated GFR BUN/Creatinine Ratio Glucose Calcium Serum , Qual SARS-CoV-2 (PCR) Negative Blood Type A Positive Antibody Screen Negative Crossmatch See Detail 06/25/20 04:34 WBC RBC Hgb 7.8 L Hct 23.8 L MCV MCH MCHC RDW Plt Count Neut % (Auto) Lymph % (Auto) [place] % (Auto) Eos % (Auto) Baso % (Auto) Neut # (Auto) Lymph # (Auto) [place] # (Auto) Eos # (Auto) Baso # (Auto) Sodium Potassium Chloride Carbon Dioxide BUN Creatinine Estimated GFR BUN/Creatinine Ratio Glucose Calcium Serum , Qual SARS-CoV-2 (PCR) Blood Type Antibody Screen Crossmatch Assessment & Plan Assessment and plan (1) Heavy menstrual bleeding: Status: Acute (2) Anemia: Status: Acute Assessment & Plan narrative: Patient with menorrhagia. She received 1 unit of blood, tranxemic acid, and Provera. She is still passing large blood clots. She will be scheduled for a D&C. Consent form for the D and C was reviewed with the patient. Risk of infection, perforation that could cause damage to internal structures such as the bowel, bladder, ureters that could require additional surgery or opening the abdomen to repair. Continue bleeding after the procedure. Reaction to anesthesia or medication that could result in or permanent or partial disability. Consent form was signed and questions answered. Patient is planning to be discharged after her procedure. COVID-19 COVID-19 status: Negative Result date/Date tested (Pos, Neg/Pending): 06/24/20 Time Spent With Patient Time with patient: less than 15 minutes Quality VTE Deep Vein Thrombosis/Pulmonary Embolism Present on Admission: No
--- NOTE | 2020-06-25 11:17 | PM.PREOP ---
Pre-operative Note COVID-19 COVID-19 status: Negative Result date/Date tested (Pos, Neg/Pending): 06/24/20 Interval Note History & Physical reviewed/Exam performed by Physician: Yes Changes to H&P: No
[2020-06-25 13:43] LABS: Hematocrit 23.8 % (36-46); Hemoglobin 7.9 g/dL (12.0-16.0)
--- NOTE | 2020-06-25 15:12 | PC.NURSE ---
VSS, denies any pain, alert and oriented x3, to OR via bed.
[2020-06-25] MEDS: CEFAZOLIN 2 GM/100 ML FROZ.PIGGY IV (15:20)
--- NOTE | 2020-06-25 15:41 | PM.OP.1 ---
Operative Date/Time/Diagnoses Date of procedure: 06/25/20 Time of procedure: 15:41 Pre-op diagnosis: Menorrhagia with thickened endometrium on ultrasound Post-op diagnosis: same Procedure & Clinicians Procedure: D&C Same procedure as scheduled: Yes Indications: Menorrhagia with thickened endometrium on ultrasound Surgeon: Aury Mercado Click Yes if Unassisted: Yes Anesthesia Type: General Operative Notes Findings: Minimal amount tissue on D and C Closure Type: not applicable Specimen(s): other (Uterine curettage) Estimated Blood Loss (mL): 20 Blood products transfused: none Procedure in detail: Patient was brought to the operating room where she underwent general anesthesia. She was placed in low Yellofin stirrups and prepped and draped in the usual sterile fashion. 2 g of Ancef were in prior to beginning the case. Pulsatile stockings were in place and functional. Warming was with blankets. A check system was reviewed with the staff in the room prior to beginning the case. A single-tooth tenaculum was placed on the anterior lip of the cervix and the cervix was already dilated to a #10 Hegar dilator. The uterus was curetted in the tissue was sent to pathology. Patient went to recovery room in stable condition. Counts of instruments and sponges were correct. Complications: none Post-operative Condition: stable Disposition: same day surgery Plan for aftercare: Home when awake and stable
--- NOTE | 2020-06-25 15:47 | SUR.OPER ---
Lithotomy on padded OR bed, head on pillow, arms secured on padded arm boards at <90 degrees abduction. Legs secured in padded yellow fins stirrups.
--- NOTE | 2020-06-25 15:49 | P.DS_ITS ---
History of Present Illness History of Present Illness Date Patient Seen: 06/25/20 Time Patient Seen: 15:49 Date of Onset of Symptoms: 06/21/20 Chief complaint: very heavy period Narrative: Patient is a 35-year-old with a history of menorrhagia who presented to the emergency room with heavy bleeding for 4 days and was found to be extremely anemic. Patient was admitted on 06/24/2019 and giving 1 unit of packed red blood cells. She was given traxemic acid and Provera orally as well as Depo-Provera. She underwent a D&C on 06/25/2020. Patient's blood count remained stable. Discharge Providers Provider Date of admission: 06/24/20 23:12 Discharge Date: 06/25/20 Consults: 06/24/20 22:30 Consult to Physician Urgent Comment: Consulting Provider: Aury Mercado Reason for consultation: Admission Has provider been notified: Yes Discharge provider: Aury Mercado MD Summary Hospital Course Discharge Diagnosis: Menorrhagia Hospital Course: Patient was admitted for transfusion of 1 unit of blood. She underwent a D&C for thickened endometrium on ultrasound. She was discharged after her D&C. Status at Discharge Cognitive/behavioral status at discharge: oriented Functional status at discharge: independent ambulation Overall status at discharge: patient is progressing back to baseline Time Spent with Patient Time spent: Less than 30 minutes Exam Vital Signs (past 8 hours): - 06/25/20 08:35 06/25/20 08:37 06/25/20 12:00 Temperature 98.6 F 98.5 F 98.8 F Pulse Rate 85 85 70 Respiratory Rate 17 17 16 Blood Pressure 109/65 109/65 111/62 Pulse Oximetry 98 98 98 06/25/20 15:11 Temperature 98.4 F Pulse Rate 75 Respiratory Rate 16 Blood Pressure 103/64 Pulse Oximetry 98 Oxygen Delivery Method Room Air Narrative Exam Narrative: Patient's lungs are clear to auscultation percussion. Heart is regular rate and rhythm no S3-S4 or murmurs. Patient's abdomen is soft, nontender. Bleeding has slowed. Extremities with trace edema and nontender. Objective Labs Result Diagrams: 06/25/20 13:20 06/24/20 18:33 Labs: Laboratory Results - last 24 hr 06/24/20 06/24/20 06/24/20 18:33 18:33 18:33 WBC 9.9 RBC 2.64 L Hgb 7.5 L Hct 22.7 L MCV 86.0 MCH 28.3 MCHC 32.9 RDW 17.4 H Plt Count 322 Neut % (Auto) 64.4 Lymph % (Auto) 27.0 [place] % (Auto) 6.3 Eos % (Auto) 1.2 L Baso % (Auto) 1.1 Neut # (Auto) 6400 Lymph # (Auto) 2700 [place] # (Auto) 600 Eos # (Auto) 100 Baso # (Auto) 100 Sodium 135 L Potassium 3.6 Chloride 104 Carbon Dioxide 30 BUN 17 Creatinine 1.22 H Estimated GFR 49.6 L BUN/Creatinine Ratio 13.9 Glucose 103 H Calcium 8.6 Serum , Qual Negative SARS-CoV-2 (PCR) Blood Type Antibody Screen Crossmatch 06/24/20 06/24/20 06/24/20 20:25 22:00 23:57 WBC RBC Hgb 6.8 L* Hct 20.9 L* MCV MCH MCHC RDW Plt Count Neut % (Auto) Lymph % (Auto) [place] % (Auto) Eos % (Auto) Baso % (Auto) Neut # (Auto) Lymph # (Auto) [place] # (Auto) Eos # (Auto) Baso # (Auto) Sodium Potassium Chloride Carbon Dioxide BUN Creatinine Estimated GFR BUN/Creatinine Ratio Glucose Calcium Serum , Qual SARS-CoV-2 (PCR) Negative Blood Type A Positive Antibody Screen Negative Crossmatch See Detail 06/25/20 06/25/20 04:34 13:20 WBC RBC Hgb 7.8 L 7.9 L Hct 23.8 L 23.8 L MCV MCH MCHC RDW Plt Count Neut % (Auto) Lymph % (Auto) [place] % (Auto) Eos % (Auto) Baso % (Auto) Neut # (Auto) Lymph # (Auto) [place] # (Auto) Eos # (Auto) Baso # (Auto) Sodium Potassium Chloride Carbon Dioxide BUN Creatinine Estimated GFR BUN/Creatinine Ratio Glucose Calcium Serum , Qual SARS-CoV-2 (PCR) Blood Type Antibody Screen Crossmatch [facility] Medical History Bipolar 1 disorder GERD (gastroesophageal reflux disease) PTSD (post-traumatic stress disorder) Rheumatoid arthritis Skin rash Thyroid cancer UTI (urinary tract infection) Surgical History History of thyroidectomy History of tonsillectomy Status post laparoscopy Family History Grandfather Cancer Diabetes mellitus Heart disease Hypertension High cholesterol Grandmother Cancer Diabetes mellitus Hypertension High cholesterol Mental health problem Mother Age: 58 Diabetes mellitus Grandmother Cancer Social History household members: none Smoking Status: Current every day smoker alcohol intake: never Discharge Assessment & Plan Assessment and Plan Assessment: Patient with menorrhagia and thickened endometrium on ultrasound. She was hospitalized for 1 unit packed red blood cells and a D&C. Patient received IM Depo-Provera. Plan of Treatment: Patient received IM Depo-Provera and will be followed up in 4 weeks. We will hopefully be able to arrange for her to be taking care of by a primary care physician to reinstate her medications. Discharge Plan Discharge Plan Patient Disposition: Home Discharge orders & Medications Prescriptions: Continued medroxyprogesterone 150 MG/1 ML suspension 150 mg IM [id number] Qty: 0 RF: 0 lamotrigine 150 MG tablet 300 mg PO HS Qty: 60 RF: 6 epinephrine [EpiPen 2-Mark] 0.3 MG/0.3 ML auto-injector 0.3 mg INJ SEE INSTRUCTIONS PRN (Reason: Allergic Reaction) RF: 0 levothyroxine 175 mcg capsule 175 mcg PO DAILY MDD 175mcg Qty: 30 RF: 0 Discontinued amitriptyline 10 mg tablet 10 mg PO DAILY RF: 0 verapamil 120 mg capsule,ext rel. pellets 24 hr 120 mg PO DAILY RF: 0 omeprazole 20 MG capsule,delayed release(DR/EC) 20 mg PO BID Qty: 60 RF: 11 diclofenac sodium [Voltaren] 1 % gel 1 alex Topical QDAY Qty: 100 RF: 3 sertraline [Zoloft] 100 MG tablet 100 mg PO HS Qty: 90 RF: 1 clonazepam 1 MG tablet 1 mg PO BID AND HS Qty: 120 RF: 3 dextroamphetamine-amphetamine [Adderall] 15 MG tablet 15 mg PO QDAY Qty: 30 RF: 0 dextroamphetamine-amphetamine [Adderall XR] 15 MG capsule,extended release 24hr 15 mg PO QDAY Qty: 30 RF: 0 ranitidine HCl 150 MG tablet 150 mg PO BID Qty: 60 RF: 11 [MagDelay] Qty: 0 RF: 0 mupirocin 2 % ointment 0 alex Topical TID Qty: 22 RF: 0 carisoprodol 350 MG tablet 350 mg PO TIDP PRNQty: 90 RF: 0 acyclovir 400 MG tablet 400 mg PO BID Qty: 60 RF: 11 methocarbamol 750 mg tablet 750 mg PO QID PRN (Reason: muscle spasm) Qty: 30 RF: 0 cyclobenzaprine 10 mg tablet 10 mg PO TID PRN (Reason: muscle spasm) Qty: 14 RF: 0 diazepam [Valium] 5 mg tablet 5 mg PO BID-QID PRN (Reason: muscle spasm) Qty: 10 RF: 0 Follow up/Referrals: Aury Mercado MD [Physician] - 1 Month (Postop exam) Diet/Activity/Treatments Diet: Regular Activity: Nothing in vagina for 1 week Skin/Wound/Dressing Care Report to your healthcare provider any signs of infection, such as:: chills, fever and increased pain Visit Report/Discharge Packet Stand Alone Forms: Surgery Discharge Discharge Data Attending Provider: Aury Mercado Quality VTE Deep Vein Thrombosis/Pulmonary Embolism Present on Admission: No
[2020-06-25] MEDS: NAPROXEN 250 MG TABLET 500 MG PO (16:20)
== END 2020-06-25 16:45 | disposition home or self-care (01) ==
LOC: ED 22:24 → LABOR 06-25 08:01
PROVIDERS: Admitting Provider Specialist; Emergency Provider Emergency Medicine; Referring Provider Emergency Medicine; Visit Provider Specialist
PROC: (CPT 58120; principal; 2020-06-25 15:30)
DX: N92.0 Excessive and frequent menstruation with regular cycle (principal); D64.9 Anemia, unspecified; A60.09 Herpesviral infection of other urogenital tract; K21.9 Gastro-esophageal reflux disease without esophagitis; F32.9 Major depressive disorder, single episode, unspecified; F17.210 Nicotine dependence, cigarettes, uncomplicated; Z20.822 Contact with and (suspected) exposure to COVID-19
CPT/HCPCS: 58120; 36415; 36430; 76830; 76856; 80048; 84703; 85014; 85018; 85025; 86850; 86900; 86901; 87635; 96372; 96374; 99281; 99284; C9803; G0378; P9016; J0690; J1050; J2250; J2405; J2704; J3010

== ENCOUNTER 2020-07-23 02:01 | Emergency (ER) | payer OTHER, MEDICAID, SELFPAY ==
[2020-06-25 00:51] VITALS: BMI 37.1
[2020-07-23 02:05] VITALS: BP 148/87; PULSE 109; RESP 17; TEMP 37.4; O2SAT 100; BMI 35.5
--- NOTE | 2020-07-23 02:11 | ED_ITS ---
HPI - Weakness General Chief complaint: Abdominal Pain Stated complaint: spotting/cramping/feels bad Time Seen by Provider: 07/23/20 02:04 Source: patient Mode of arrival: Ambulatory History of Present Illness HPI Narrative: 35-year-old female smoker with history of thyroid cancer, gastroenteritis, PTSD, anxiety, depression presents stating she just has not felt well for approximately 1 month. She was seen here June 24 and admitted for control of heavy vaginal bleeding which required transfusion and D&C. She states that she has not had any vaginal bleeding since that event except for some very mild spotting yesterday. She is not dizzy nor weak or lightheaded. She says that she is tired all the time and can not seem to get warm. She has been living out of her car and states that even though she has had her prescriptions refilled she has for gotten to pick them up and likely has not had her medications since about January. She denies any chest pain or shortness of breath. She denies nausea, vomiting or diarrhea. She has no dysuria, frequency or urgency. She denies MD Complaint: generalized weakness and lack of energy Duration: constant Location: generalized Migration: none Severity: mild Relieving factors: none Exacerbating factors: none Associated symptoms: other (Chills) Related Data Home Medications Medication Instructions Recorded Confirmed medroxyprogesterone 150 mg IM [id number] #0 02/17/17 07/30/19 epinephrine [EpiPen 2-Mark] 0.3 mg INJ SEE INSTRUCTIONS PRN 11/29/19 11/29/19 Previous Rx's Medication Instructions Recorded levothyroxine 175 mcg PO DAILY #30 cap MDD 175mcg 11/29/19 acyclovir 400 mg PO BID #60 tab 06/25/20 levothyroxine 175 mcg PO DAILY #30 tab 06/25/20 naproxen 500 mg PO BID #30 tab 06/25/20 ondansetron 4 mg PO Q8H PRN #20 tab 06/25/20 sertraline 100 mg PO DAILY #30 tab 06/25/20 Allergies Allergy/AdvReac Type Severity Reaction Status Date / Time acetaminophen [ACETAMINOPHEN] Allergy Intermediate RASH WITH Verified 06/24/20 18:01 LARGE AMOUNTS doxycycline [DOXYCYCLINE] Allergy Intermediate VOMITING Verified 06/24/20 18:01 adhesive tape [ADHESIVE TAPE] Allergy Unknown Verified 06/24/20 18:01 bee venom protein (honey bee) Allergy Unknown Verified 06/24/20 18:01 [BEE VENOM PROTEIN (HONEY BEE)] Milk Containing Products Allergy Unknown Verified 06/24/20 18:01 [MILK CONTAINING PRODUCTS] cyclobenzaprine AdvReac Migraine Verified 06/24/20 18:01 [From Flexeril] Review of Systems Constitutional Constitutional: Denies chills, Denies fatigue, Denies fever(s), Denies frequent falls, Denies lethargy and Reports weakness Eyes Eyes: Denies change in vision, Denies eye discharge, Denies irritation and Denies loss of vision ENT Ears, Nose, Mouth, and Throat: Denies change in voice, Denies dizziness, Denies neck pain, Denies sore throat and Denies throat swelling Cardiovascular Cardiovascular: Denies chest pain, Denies irregular heart rhythm, Denies lightheadedness, Denies palpitations, Denies dyspnea, Denies dyspnea on exertion and Denies orthopnea Respiratory Respiratory: Denies cough, Denies dyspnea, Denies dyspnea on exertion and Denies wheezing Gastrointestinal Gastrointestinal: Denies abdominal pain, Denies change in bowel habits, Denies diarrhea, Denies nausea and Denies vomiting Genitourinary Comments: occasional cramping and some spotting yesterday Musculoskeletal Musculoskeletal: Denies neck pain and Denies numbness Integumentary/Breasts Skin/Breast: Denies pruritus, Denies erythema, Denies rash and Denies wounds Neurologic Neurologic: Denies behavioral changes, Denies confusion, Denies dizziness, Denies frequent falls, Denies loss of vision, Denies numbness and Reports weakness Psychiatric Psychiatric: Denies anxiety, Denies behavioral changes, Denies confusion, Denies depression, Denies homicidal ideation and Denies suicidal ideation Endocrine Endocrine: Denies fatigue, Denies flushing and Denies palpitations Hematologic/Lymphatic Hematologic/Lymphatic: Denies easy bruising Allergic/Immunologic Allergic/Immunologic: Denies urticaria, Denies throat swelling and Denies wheezing Patient History Medical History (Updated 07/23/20 @ 04:57 by Alejandro Waggoner DO) Bipolar 1 disorder GERD (gastroesophageal reflux disease) PTSD (post-traumatic stress disorder) Rheumatoid arthritis Skin rash Thyroid cancer UTI (urinary tract infection) Surgical History History of thyroidectomy History of tonsillectomy Status post laparoscopy Family History Grandfather Cancer Diabetes mellitus Heart disease Hypertension High cholesterol Grandmother Cancer Diabetes mellitus Hypertension High cholesterol Mental health problem Mother Age: 58 Diabetes mellitus Grandmother Cancer Social History household members: none Smoking Status: Current every day smoker alcohol intake: never Smoking Status: Current every day smoker alcohol intake frequency: 0-2 drinks per day Substance Use Type: does not use Exam Initial Vital Signs Initial Vital Signs: Vital Signs Temperature 99.3 F 07/23/20 02:05 Pulse Rate 109 H 07/23/20 02:05 Respiratory Rate 17 07/23/20 02:05 Blood Pressure 148/87 H 07/23/20 02:05 Pulse Oximetry 100 07/23/20 02:05 Course Orders Ordered: ED Orders 07/23/20 02:52 Complete Blood Count AUTO DIFF Stat Comprehensive Metabolic Panel Stat Free T4, Direct Thyroxine Stat Magnesium Stat TSH w/ Reflex to FT4 Stat Type and Screen Stat 07/23/20 03:30 Urinalysis and Microscopic Stat Discontinued Medications Sodium Chloride (Normal Saline 0.9%) 1,000 mls @ 125 mls/hr IV CONT LILA Last Admin: 07/23/20 02:40 Dose: 125 mls/hr Documented by: VANGIE Vital Signs Vital signs: Vital Signs - 8 hr 07/23/20 02:05 07/23/20 02:56 07/23/20 05:06 Temperature 99.3 F 99.1 F Pulse Rate 109 H 86 Respiratory Rate 17 18 Blood Pressure 148/87 H 129/74 Pulse Oximetry 100 98 MDM - Weakness Lab Data Result diagrams: 07/23/20 02:52 07/23/20 02:52 Labs: Lab Results 07/23/20 07/23/20 07/23/20 Range/Units 02:52 02:52 02:52 WBC 8.2 (4.5-11.0) X10^3/uL RBC 2.92 L (4.0-5.2) X10^6/uL Hgb 8.1 L (12.0-16.0) g/dL Hct 24.5 L (36-46) % MCV 83.8 (80-100) fL MCH 27.8 (26-34) PG MCHC 33.2 (30-36) % RDW 15.5 H (11.6-14.8) % Plt Count 311 (150-400) X10^3/uL Neut % (Auto) 63.4 (50-75) % Lymph % (Auto) 26.9 (25-40) % [place] % (Auto) 7.3 (3-14) % Eos % (Auto) 1.2 L (2-4) % Baso % (Auto) 1.2 (0-2) % Neut # (Auto) 5200 (0419-1915) /uL Lymph # (Auto) 2200 (4674-3703) /uL [place] # (Auto) 600 (0-900) /uL Eos # (Auto) 100 (0-450) /uL Baso # (Auto) 100 (0-100) /uL Sodium 137 (137-145) mmol/L Potassium 3.7 (3.4-5.1) mmol/L Chloride 105 (98-107) mmol/L Carbon Dioxide 26 (22-32) mmol/L BUN 20 H (7-17) mg/dL Creatinine 1.13 H (0.52-1.04) mg/dL Estimated GFR 54.2 L (>60) mL/min BUN/Creatinine Ratio 17.7 (6-22) Glucose 79 (70-100) mg/dL Calcium 9.1 (8.4-10.2) mg/dL Magnesium (1.6-2.3) mg/dL Total Bilirubin < 0.1 L (0.2-1.3) mg/dL AST 68 H (14-36) IU/L ALT 51 H (<35) IU/L Alkaline Phosphatase 62 (38-126) U/L Total Protein 7.3 (6.3-8.2) g/dL Albumin 4.2 (3.5-5.0) g/dL Globulin 3.1 (1.7-4.1) g/dL Albumin/Globulin Ratio 1.4 (1.0-2.8) TSH 210.00 H (0.47-4.68) uIU/mL Free T4 < 0.08 L (0.78-2.19) ng/dL Urine Color Urine Appearance Urine pH (4.5-8.0) Ur Specific [place] (1.000-1.035) Urine Protein (Negative) Urine Glucose (UA) (Negative) g/dL Urine Ketones (NEGATIVE) Urine Occult Blood (Negative) Urine Nitrate (Negative) Urine Bilirubin (NEGATIVE) Urine Urobilinogen (0.2) E.U./dL Ur Leukocyte Esterase (NEGATIVE) Urine RBC (0-5/HPF) Urine WBC (0-5/HPF) Ur Squamous Epith Cells (0-5/HPF) Urine Bacteria (None) Ur Culture Indicated? Blood Type Antibody Screen 07/23/20 07/23/20 07/23/20 Range/Units 02:52 02:52 03:30 WBC (4.5-11.0) X10^3/uL RBC (4.0-5.2) X10^6/uL Hgb (12.0-16.0) g/dL Hct (36-46) % MCV (80-100) fL MCH (26-34) PG MCHC (30-36) % RDW (11.6-14.8) % Plt Count (150-400) X10^3/uL Neut % (Auto) (50-75) % Lymph % (Auto) (25-40) % [place] % (Auto) (3-14) % Eos % (Auto) (2-4) % Baso % (Auto) (0-2) % Neut # (Auto) (7497-1406) /uL Lymph # (Auto) (7531-2237) /uL [place] # (Auto) (0-900) /uL Eos # (Auto) (0-450) /uL Baso # (Auto) (0-100) /uL Sodium (137-145) mmol/L Potassium (3.4-5.1) mmol/L Chloride (98-107) mmol/L Carbon Dioxide (22-32) mmol/L BUN (7-17) mg/dL Creatinine (0.52-1.04) mg/dL Estimated GFR (>60) mL/min BUN/Creatinine Ratio (6-22) Glucose (70-100) mg/dL Calcium (8.4-10.2) mg/dL Magnesium 2.2 (1.6-2.3) mg/dL Total Bilirubin (0.2-1.3) mg/dL AST (14-36) IU/L ALT (<35) IU/L Alkaline Phosphatase (38-126) U/L Total Protein (6.3-8.2) g/dL Albumin (3.5-5.0) g/dL Globulin (1.7-4.1) g/dL Albumin/Globulin Ratio (1.0-2.8) TSH (0.47-4.68) uIU/mL Free T4 (0.78-2.19) ng/dL Urine Color Yellow Urine Appearance Clear Urine pH 6.5 (4.5-8.0) Ur Specific [place] 1.020 (1.000-1.035) Urine Protein Negative (Negative) Urine Glucose (UA) Negative (Negative) g/dL Urine Ketones Negative (NEGATIVE) Urine Occult Blood 3+ H (Negative) Urine Nitrate Negative (Negative) Urine Bilirubin Negative (NEGATIVE) Urine Urobilinogen 0.2 (0.2) E.U./dL Ur Leukocyte Esterase Negative (NEGATIVE) Urine RBC 0-1/hpf (0-5/HPF) Urine WBC 0-1/hpf (0-5/HPF) Ur Squamous Epith Cells 1-5 /hpf (0-5/HPF) Urine Bacteria Moderate (10-30) H (None) Ur Culture Indicated? Cult not indicated Blood Type A Positive Antibody Screen Negative Point of Care Testing Test Results Negative Urine Dip Bedside Urine Glucose Negative Bedside Urine Bilirubin - Negative Bedside Urine Ketone - Negative Urine Specific [place] 1.030 Bedside Urine Occult Blood +++ Bedside Urine pH 6.0 Bedside Urine Protein - Negative Bedside Urine Urobilinogen - Negative Bedside Urine Nitrite - Negative Bedside Urine Leukocytes - Negative Esterase Discharge Plan Departure Patient Disposition: Home Clinical Impression: Anemia Qualifiers: Anemia type: unspecified type Qualified Code(s): D64.9 - Anemia, unspecified Hypothyroidism Qualifiers: Hypothyroidism type: postoperative Qualified Code(s): E89.0 - Postprocedural hypothyroidism Instructions: DI for Hypothyroidism Activity Restrictions/Additional Instructions: *You have been diagnosed with [chronic anemia and hypothyroidism. Your thyroid is quite low and you need to take your medications.] *What to do: *Take medications as directed *Follow up with your primary care provider in 2-3 days, call for an appointment. Let them know you were seen in the Emergency Department and that we ask that you be seen in follow up *Return to ER if you should have any new, worsening or concerning symptoms Prescriptions: No Action medroxyprogesterone 150 MG/1 ML suspension 150 mg IM [id number] Qty: 0 RF: 0 naproxen 500 mg tablet 500 mg PO BID Qty: 30 RF: 0 acyclovir 400 mg tablet 400 mg PO BID Qty: 60 RF: 1 levothyroxine 175 mcg tablet 175 mcg PO DAILY Qty: 30 RF: 1 sertraline 100 mg tablet 100 mg PO DAILY Qty: 30 RF: 1 ondansetron 4 mg tablet,disintegrating 4 mg PO Q8H PRN (Reason: nausea and vomiting) Qty: 20 RF: 0 epinephrine [EpiPen 2-Mark] 0.3 MG/0.3 ML auto-injector 0.3 mg INJ SEE INSTRUCTIONS PRN (Reason: Allergic Reaction) RF: 0 levothyroxine 175 mcg capsule 175 mcg PO DAILY MDD 175mcg Qty: 30 RF: 0
[2020-07-23] MEDS: SODIUM CHLORIDE 0.9% 1,000 ML 125 ML IV (02:40)
[2020-07-23 02:56] VITALS: TEMP 37.3
[2020-07-23 03:16] LABS: Add Manual Diff / Slide Review NO; Basophils Absolute Auto 100 /uL (0-100); Basophils Percent Auto 1.2 % (0-2); Eosinophils Absolute Auto 100 /uL (0-450); Eosinophils Percent Auto 1.2 % (2-4); Hematocrit 24.5 % (36-46); Hemoglobin 8.1 g/dL (12.0-16.0); Lymphocytes Absolute Auto 2200 /uL (1100-4500); Lymphocytes Percent Auto 26.9 % (25-40); Mean Corpuscular HGB Conc 33.2 % (30-36); Mean Corpuscular Hemoglobin 27.8 PG (26-34); Mean Corpuscular Volume 83.8 fL (80-100); Monocytes Absolute Auto 600 /uL (0-900); Monocytes Percent Auto 7.3 % (3-14); Neutrophils Absolute Auto 5200 /uL (1500-7000); Neutrophils Percent Auto 63.4 % (50-75); Platelet Count 311 X10^3/uL (150-400); Red Blood Cell Count 2.92 X10^6/uL (4.0-5.2); Red Cell Distribution Width 15.5 % (11.6-14.8); White Blood Cell Count 8.2 X10^3/uL (4.5-11.0)
[2020-07-23 03:25] LABS: Alanine Aminotransferase 51 IU/L (<35); Albumin 4.2 g/dL (3.5-5.0); Albumin Globulin Ratio 1.4 (1.0-2.8); Alkaline Phosphatase 62 U/L (38-126); Aspartate Aminotransferase 68 IU/L (14-36); BUN Creatinine Ratio 17.7 (6-22); Bilirubin Total < 0.1 mg/dL (0.2-1.3); Blood Urea Nitrogen 20 mg/dL (7-17); Calcium 9.1 mg/dL (8.4-10.2); Carbon Dioxide 26 mmol/L (22-32); Chloride 105 mmol/L (98-107); Estimated Glomerular Filt Rate 54.2 mL/min (>60); Globulin 3.1 g/dL (1.7-4.1); Glucose 79 mg/dL (70-100); HEMOLYSIS < 15 (0-50); Potassium 3.7 mmol/L (3.4-5.1); Sodium 137 mmol/L (137-145); Total Protein 7.3 g/dL (6.3-8.2)
[2020-07-23 03:26] LABS: Magnesium 2.2 mg/dL (1.6-2.3)
[2020-07-23 03:51] LABS: Appearance Urine UA CLEAR; Bilirubin Urine UA NEGATIVE (NEGATIVE); Color Urine UA YELLOW; Glucose Urine UA NEGATIVE (Negative); Ketones Urine UA NEGATIVE (NEGATIVE); Leukocyte Esterase Urine UA NEGATIVE (NEGATIVE); Nitrite Urine UA NEGATIVE (Negative); Occult Blood Urine UA 3+ (Negative); Protein Urine UA NEGATIVE (Negative); Urobilinogen Urine UA 0.2 E.U./dL (0.2)
[2020-07-23 03:53] LABS: pH Urine UA 6.5 (4.5-8.0)
[2020-07-23 03:54] LABS: Bacteria Urine Moderate (10-30); Culture Indicated Urine Cult Not Indicated; RBC Urine 0-1/HPF (0-5/HPF); Squamous Epithelial Cell Urine 1-5 /HPF (0-5/HPF); WBC Urine 0-1/HPF (0-5/HPF)
[2020-07-23 05:06] VITALS: BP 129/74; PULSE 86; RESP 18; O2SAT 98
[2020-07-23 05:15] LABS: Free T4, Direct Thyroxine < 0.08 ng/dL (0.78-2.19)
== END 2020-07-23 05:07 | disposition home or self-care (01) ==
PROVIDERS: Emergency Provider Emergency Medicine
DX: D64.9 Anemia, unspecified (principal); E03.9 Hypothyroidism, unspecified; R10.9 Unspecified abdominal pain; Z85.850 Personal history of malignant neoplasm of thyroid
CPT/HCPCS: 36415; 80053; 81001; 81003; 81025; 83735; 84439; 84443; 85025; 86850; 86900; 86901; 96360; 96361; 99281; 99284

== ENCOUNTER 2020-12-28 03:00 | Emergency (ER) | payer OTHER, MEDICAID, SELFPAY ==
[2020-06-25 00:51] VITALS: BMI 37.1
--- NOTE | 2020-12-28 03:02 | ED_ITS ---
HPI - Skin/Abscess/Foreign Bdy General Chief complaint: Skin/Abscess/Foreign Body Stated complaint: multiple bug bites all over/jaw pain right lower Time Seen by Provider: 12/28/20 03:02 History of Present Illness HPI narrative: 35-year-old female smoker with history of hypothyroid presents with a chief complaint of multiple insect bites about a week ago which were intensely pruritic and she H them significantly and many are now scabbing with surrounding redness and some of in drained fluid. She denies any fever or chills. She is not dizzy nor weak or lightheaded. She has these bites on her legs and arms. She is otherwise well and free of complaint Related Data Home Medications Medication Instructions Recorded Confirmed medroxyprogesterone 150 mg/mL 150 mg IM [id number] #[id number] 02/17/17 07/30/19 intramuscular suspension epinephrine 0.3 mg/0.3 mL 0.3 mg INJ SEE INSTRUCTIONS PRN 11/29/19 11/29/19 injection, auto-injector (EpiPen 2-Mark) Previous Rx's Medication Instructions Recorded levothyroxine 175 mcg capsule 175 mcg PO DAILY #30 cap MDD 175mcg 11/29/19 acyclovir 400 mg tablet 400 mg PO BID #60 tab 06/25/20 naproxen 500 mg tablet 500 mg PO BID #30 tab 06/25/20 ondansetron 4 mg disintegrating 4 mg PO Q8H PRN #20 tab 06/25/20 tablet sertraline 100 mg tablet 100 mg PO DAILY #30 tab 06/25/20 levothyroxine 175 mcg tablet See Rx Instructions .ROUTE 10/27/20 .COMPLEX #30 tab sulfamethoxazole 800 1 tab PO BID 10 Days #20 tab 12/28/20 mg-trimethoprim 160 mg tablet (Bactrim DS) Allergies Allergy/AdvReac Type Severity Reaction Status Date / Time acetaminophen [ACETAMINOPHEN] Allergy Intermediate RASH WITH Verified 12/28/20 03:19 LARGE AMOUNTS doxycycline [DOXYCYCLINE] Allergy Intermediate VOMITING Verified 12/28/20 03:19 adhesive tape [ADHESIVE TAPE] Allergy Unknown Verified 12/28/20 03:19 bee venom protein (honey bee) Allergy Unknown Verified 12/28/20 03:19 [BEE VENOM PROTEIN (HONEY BEE)] Milk Containing Products Allergy Unknown Verified 12/28/20 03:19 [MILK CONTAINING PRODUCTS] cyclobenzaprine AdvReac Migraine Verified 12/28/20 03:19 [From Flexeril] Review of Systems Review of Systems Narrative: GENERAL: Denies chills, fatigue, malaise, fever, sweats. HEENT: Denies sinus pain, ear pain, sore throat, difficulty swallowing, dizziness. RESPIRATORY: Denies dyspnea, cough, wheezing, hemoptysis, sputum. CARDIOVASCULAR: Denies chest pain, palpitations, orthopnea, edema, GASTROINTESTINAL: Denies nausea, vomiting, abdominal pain, diarrhea, constipation, melena. : Denies dysuria, frequency, incontinence, hematuria, urinary retention. MUSCULOSKELETAL: denies weakness, joint pain, or bony pain SKIN: See HPI NEUROLOGIC: Denies weakness, headache, numbness, change in speech, confusion, seizures, incoordination. PSYCHIATRIC: No concerning psychosocial issues. 12 point review of systems is negative except for those stated above Patient History Medical History Bipolar 1 disorder GERD (gastroesophageal reflux disease) PTSD (post-traumatic stress disorder) Rheumatoid arthritis Skin rash Thyroid cancer UTI (urinary tract infection) Surgical History History of thyroidectomy History of tonsillectomy Status post laparoscopy Family History Grandfather Cancer Diabetes mellitus Heart disease Hypertension High cholesterol Grandmother Cancer Diabetes mellitus Hypertension High cholesterol Mental health problem Mother Age: 58 Diabetes mellitus Grandmother Cancer Social History household members: none Smoking Status: Current every day smoker alcohol intake: never Smoking Status: Current every day smoker alcohol intake frequency: 0-2 drinks per day Substance Use Type: does not use Exam Narrative Exam Narrative: GEN: AOx3 and in mild distress EYES: Pupils are equal, round, and reactive to light and accommodation. Extraoccular muscles are intact bilaterally. There is no subconjunctival hemorrhage or exudate. CHEST: Lungs are clear to auscultation bilaterally and free of wheezes, rales, or rhonchi. Heart rate is regular rhythm, there are no murmurs, clicks, rubs, or gallops. There is no chest wall tenderness. ABD: Abdomen is soft and nontender. There is no guarding or rebound. Bowel sounds are normal in all 4 quadrants. There is no mass or organomegaly. EXT: Full painless ROM of all extremities with no loss of sensation or strength. SKIN: Multiple excoriations noted on bilateral lower and upper extremities, the largest of which is about the size of a nickel with scabbing and very minimal surrounding erythema. None have fluctuance or active drainage. Otherwise, Warm, pink, and dry. No erythema or rash Initial Vital Signs Initial Vital Signs: Vital Signs Temperature 98.4 F 12/28/20 03:19 Pulse Rate 102 H 12/28/20 03:19 Respiratory Rate 16 12/28/20 03:19 Blood Pressure 144/90 H 12/28/20 03:19 Pulse Oximetry 100 12/28/20 03:19 Course Orders Ordered: Discontinued Medications Trimethoprim/Sulfamethoxazole (Trimeth/Sulfa 160/800 (Ds) Tablet) 1 tab PO NOW ONE Stop: 12/28/20 03:14 Last Admin: 12/28/20 03:16 Dose: 1 tab Documented by: YARED Vital Signs Vital signs: Vital Signs - 8 hr 12/28/20 03:19 Temperature 98.4 F Pulse Rate 102 H Respiratory Rate 16 Blood Pressure 144/90 H Pulse Oximetry 100 Discharge Plan Departure Patient Disposition: Home Clinical Impression: Bug bite with infection Qualifiers: Encounter type: initial encounter Qualified Code(s): W57.XXXA - Bitten or stung by nonvenomous insect and other nonvenomous arthropods, initial encounter Activity Restrictions/Additional Instructions: *You have been diagnosed with [multiple infected bug bites] *What to do: *Please continue to take your regular medications as directed. [ x] New medication prescriptions sent to your pharmacy: [[facility]] [ ] New medication written as a paper prescription [ ] No new medications given *Please follow up with your primary care provider in 2-3 days, call for an appointment. Let them know you were seen in the Emergency Department and that we ask that you be seen in follow up. We will electronically transmit a record of today's note if your PCP is in our system *If you do not have a primary care provider please contact the [facility] Resource line at [phone]. They will ask some questions about your medical history and help get you set up with a doctor in the community. *Return to Emergency Department if you should have any new, worsening or concerning symptoms, such as [fever greater than 101 F, shaking chills, worsening pain, persistent vomiting or other bothersome symptoms] Prescriptions: New sulfamethoxazole-trimethoprim [Bactrim DS] 800-160 mg tablet 1 tab PO BID 10 Days Qty: 20 RF: 0 No Action medroxyprogesterone 150 MG/1 ML suspension 150 mg IM [id number] Qty: 0 RF: 0 levothyroxine 175 mcg tablet See Rx Instructions .ROUTE .COMPLEX Qty: 30 RF: 2 naproxen 500 mg tablet 500 mg PO BID Qty: 30 RF: 0 acyclovir 400 mg tablet 400 mg PO BID Qty: 60 RF: 1 sertraline 100 mg tablet 100 mg PO DAILY Qty: 30 RF: 1 ondansetron 4 mg tablet,disintegrating 4 mg PO Q8H PRN (Reason: nausea and vomiting) Qty: 20 RF: 0 epinephrine [EpiPen 2-Mark] 0.3 MG/0.3 ML auto-injector 0.3 mg INJ SEE INSTRUCTIONS PRN (Reason: Allergic Reaction) RF: 0 levothyroxine 175 mcg capsule 175 mcg PO DAILY MDD 175mcg Qty: 30 RF: 0
[2020-12-28] MEDS: TRIMETH/SULFA 160/800 (DS) TABLET 1 TAB PO (03:16)
[2020-12-28 03:19] VITALS: BP 144/90; PULSE 102; RESP 16; TEMP 36.9; O2SAT 100; BMI 33.9
--- NOTE | 2020-12-28 03:25 | PC.NURSE ---
Pt has multiple infected appearing lesions to BLE and nose. Not draining, c/o itching, states mosquito bites that she scratched
== END 2020-12-28 03:40 | disposition home or self-care (01) ==
PROVIDERS: Emergency Provider Emergency Medicine
DX: S80.862A Insect bite (nonvenomous), left lower leg, initial encounter (principal); S40.862A Insect bite (nonvenomous) of left upper arm, initial encounter; S40.861A Insect bite (nonvenomous) of right upper arm, initial encounter; S80.861A Insect bite (nonvenomous), right lower leg, initial encounter; W57.XXXA Bitten or stung by nonvenomous insect and other nonvenomous arthropods, initial encounter
CPT/HCPCS: 99283